=== PATIENT | male | born 1990 | race Caucasian/White ===

== ENCOUNTER 2016-10-05 00:35 | Emergency (ER) | payer BC ==
--- NOTE | 2016-10-05 00:48 | EDM.PDOC ---
ED HPI GENERAL MEDICAL PROBLEM - General Stated Complaint: CHEST PAIN Time Seen by Provider: 10/05/16 00:46 - History of Present Illness INITIAL COMMENTS - FREE TEXT/NARRATIVE: HISTORY AND PHYSICAL: History of present illness: Patient 25-year-old male history of anxiety and asthma presents with concern of left-sided chest pain is without associated palpitations nausea vomiting diaphoresis he denies other concerns he said he had similar episode prior and had a workup at that time that was negative and was told is likely anxiety. Review of systems: As per history of present illness and below otherwise all systems reviewed and negative. Past medical history: As per history of present illness and as reviewed below otherwise noncontributory. Surgical history: As per history of present illness and as reviewed below otherwise noncontributory. Social history: No reported history of drug or alcohol abuse. Family history: As per history of present illness and as reviewed below otherwise noncontributory. Physical exam: HEENT: Atraumatic, normocephalic, pupils reactive, negative for conjunctival pallor or scleral icterus, mucous membranes moist, throat clear, neck supple, nontender, trachea midline. Lungs: Clear to auscultation, breath sounds equal bilaterally, chest nontender. Heart: S1S2, regular, negative for clicks, rubs, or JVD. Abdomen: Soft, nondistended, nontender. Negative for masses or hepatosplenomegaly. Negative for costovertebral tenderness. Pelvis: Stable nontender. Genitourinary: Deferred. Rectal: Deferred. Extremities: Atraumatic, negative for cords or calf pain. Neurovascular unremarkable. Neuro: Awake, alert, oriented. Cranial nerves II through XII unremarkable. Cerebellum unremarkable. Motor and sensory unremarkable throughout. Exam nonfocal. Diagnostics: CBC CMP troponin chest x-ray EKG Therapeutics: IV O2 monitor Impression: #1 atypical chest pain #2 anxiety Definitive disposition and diagnosis as appropriate pending reevaluation and review of above. - Related Data Allergies Allergy/AdvReac Type Severity Reaction Status Date / Time aspirin Allergy Shortness Uncoded 04/11/16 16:00 of Breath Home Meds: Home Meds Albuterol Inhaler 1 puff INH ASDIRECTED 02/06/16 [History] Budesonide/Formoterol Fumarate [Symbicort 160-4.5 Mcg Inhaler] 1 puff INH BID [History] Past Medical History HEENT History: Reports: Other (See Below) Other HEENT History: Nasal polyps Cardiovascular History: Reports: Angina, Other (See Below) Other Cardiovascular History: palpitations Respiratory History: Reports: Asthma Gastrointestinal History: Reports: None Genitourinary History: Reports: None Musculoskeletal History: Reports: None Neurological History: Reports: None Psychiatric History: Reports: None Endocrine/Metabolic History: Reports: None Hematologic History: Reports: None Immunologic History: Reports: None Oncologic (Cancer) History: Reports: None Dermatologic History: Reports: None - Infectious Disease History Infectious Disease History: Reports: Chicken Pox - Past Surgical History HEENT Surgical History: Reports: Naso-Sinus Surgery Musculoskeletal Surgical History: Reports: Other (See Below) Social & Family History - Family History Family Medical History: Noncontributory - Tobacco Use Smoking Status *Q: Never Smoker Years of Tobacco use: 8 Packs/Tins Daily: 0.1 Used Tobacco, but Quit: Yes Month Tobacco Last Used: 1 yr ago Second Hand Smoke Exposure: No - Caffeine Use Caffeine Use: Reports: None - Alcohol Use Days Per Week of Alcohol Use: 2 Number of Drinks Per Day: 1 Total Drinks Per Week: 2 - Recreational Drug Use Recreational Drug Use: No Drug Use in Last 12 Months: Yes Recreational Drug Type: Reports: Marijuana/Hashish Recreational Drug Last Use: 4 months ago ED ROS GENERAL - Review of Systems Review Of Systems: ROS reveals no pertinent complaints other than HPI. ED EXAM, GENERAL - Physical Exam Exam: See Below (See dictation) Departure - Departure Time of Disposition: 00:47 Disposition: Home, Self-Care 01 Condition: Good Clinical Impression: Atypical chest pain, Anxiety - Discharge Information Additional Instructions: The following information is given to patients seen in the emergency department who are being discharged to home. This information is to outline your options for follow-up care. We provide all patients seen in our emergency department with a follow-up referral. The need for follow-up, as well as the timing and circumstances, are variable depending upon the specifics of your emergency department visit. If you don't have a primary care physician on staff, we will provide you with a referral. We always advise you to contact your personal physician following an emergency department visit to inform them of the circumstance of the visit and for follow-up with them and/or the need for any referrals to a consulting specialist. The emergency department will also refer you to a specialist when appropriate. This referral assures that you have the opportunity for followup care with a specialist. All of these measure are taken in an effort to provide you with optimal care, which includes your followup. Under all circumstances we always encourage you to contact your private physician who remains a resource for coordinating your care. When calling for followup care, please make the office aware that this follow-up is from your recent emergency room visit. If for any reason you are refused follow-up, please contact the [facility] emergency department at and asked to speak to the emergency department charge nurse. [facility] [address] [place] [phone] Follow primary medical doctor and/or clinic above in 24-48 hours return as needed as discussed
[2016-10-05 01:23] LABS: CHLORIDE,CL 103 mmol/L (98-110); SODIUM,NA 137 mmol/L (136-146)
[2016-10-05 02:05] VITALS: BP 117/66
--- NOTE | 2016-10-05 15:02 | CR ---
EXAM DATE: 10/05/16 PATIENT'S AGE: 25 Patient: JUDITH ERNANDEZ Facility: [place], [place] Site . Site : 1990 Study: XRay Chest [id number]/17/2017 1:34:18 AM Ordering Physician: Geovanny Garcia Final Report: INDICATION: chest pain TECHNIQUE: Chest 1 view. COMPARISON: 02/29/16 FINDINGS: Cardiovascular and mediastinum: Heart size and vasculature are normal in caliber and appearance. Mediastinum is within normal limits. Lungs and pleural space: Lungs are clear. No sign of infiltrate or mass. No sign of pleural effusion. No pneumothorax. Bones and soft tissues: No significant findings. IMPRESSION: Unremarkable chest. Dictated by: Toni Mayorga MD @ 10/05/2016 01:40:26 (Electronic Signature) Report Signed by Proxy. [facility]
== END 2016-10-05 02:04 | disposition home or self-care (01) ==
LOC: MW.ED 00:35
DX: R41.9 Unspecified symptoms and signs involving cognitive functions and awareness (principal); J45.909 Unspecified asthma, uncomplicated; Z88.8 Allergy status to other drugs, medicaments and biological substances; Z98.890 Other specified postprocedural states
CPT/HCPCS: 71010; 71010-26; 80053; 84484; 85027; 85610; 93005; 99284; 99285-25

== ENCOUNTER 2017-02-22 19:35 | Emergency (ER) | payer SELFPAY | END 2017-02-22 19:47 | disposition left against medical advice (07) | LOC: MW.ED 19:35 | DX: Z53.21 Procedure and treatment not carried out due to patient leaving prior to being seen by health care provider (principal) | CPT/HCPCS: 93005 ==

== ENCOUNTER 2017-03-01 23:47 | Emergency (ER) | payer SELFPAY ==
[2017-03-02] MEDS ORDERED: Sodium Chloride 0.9% 2.5 ML Syringe FLUSH PRN (00:27)
[2017-03-02] MEDS ORDERED: Sodium Chloride 0.9% 10 ML Syringe FLUSH PRN (00:27)
--- NOTE | 2017-03-02 00:32 | EDM.PDOC ---
ED HPI GENERAL MEDICAL PROBLEM - General Chief Complaint: Chest Pain Stated Complaint: PT HAS CHEST PAINS Time Seen by Provider: 03/02/17 00:18 - History of Present Illness INITIAL COMMENTS - FREE TEXT/NARRATIVE: HISTORY AND PHYSICAL: History of present illness: The patient is a 26-year-old male who presents with complaints of episodic chest tightness just to the left of his sternum which she has been evaluated in the past for and a new exacerbation of sharp chest pain that lasted for 1 minute and woke him from sleep. According to the computer he has been here multiple times in the past for palpitations and chest pain and had a stress test 2 years ago which was negative. He is also seeing her patient safety coordinator in the past Dr. Fu. His cholesterol and lipids checked at that time and they were also within normal limits. He says he has not followed with a patient safety coordinator or a provider in the clinic since that time but did present to her emergency department last week on February 22 with a similar episode to today. Last week's episode was when he was at work he started having the chest tightness and he felt like he might pass out but he did not pass out and he came here for evaluation. His EKG performed last week and the one done today were identical. On today's events he said he had a normal day throughout the day with normal activity and no chest discomfort no upper respiratory symptoms shortness of breath abdominal pain vomiting or diarrhea. He was going to bed and dozing off when he awoke with this sharp sensation just the left of his sternum without radiation. He felt somewhat anxious with it and then it subsided after less than 1 minute. He did not take any medications prior to coming here. He currently says that the sharp pain is gone and he does has the dull pressure and tightness that he says is not new or different. He has no abdominal complaints no leg pain or swelling and no neurosensory changes in his extremities. The patient says he has asthma and he is unable to take aspirin or nonsteroidals because it flares his asthma. Patient is very active on a daily basis and has not gotten this type of chest pain with his activities. He does not know his family history. The patient says that he has episodes of this chest pressure and tightness quite frequently in the past and he would not be here considering that he is more concerned about this brief episode of sharp pain which has since resolved since arriving here Review of systems: As per history of present illness and below otherwise all systems reviewed and negative. Past medical history: As per history of present illness and as reviewed below otherwise noncontributory. Surgical history: As per history of present illness and as reviewed below otherwise noncontributory. Social history: No reported history of drug or alcohol abuse. Family history: As per history of present illness and as reviewed below otherwise noncontributory. Physical exam: Gen.: Well-developed well-nourished man who is nontoxic and speaking clearly and easily in the ED. Vital signs were noted by me. HEENT: Atraumatic, normocephalic, pupils reactive, negative for conjunctival pallor or scleral icterus, mucous membranes moist, throat clear, neck supple, nontender, trachea midline. Lungs: Clear to auscultation, breath sounds equal bilaterally, chest nontender. Heart: S1S2, regular, rate and rhythm no overt murmurs. Abdomen: Soft, nondistended, nontender. NABS Pelvis: Stable nontender. Genitourinary: Deferred. Rectal: Deferred. Extremities: Atraumatic, negative for cords or calf pain. Neurovascular unremarkable. No pedal edema or leg asymmetry Neuro: Awake, alert, oriented. Cranial nerves II through XII unremarkable. Cerebellum unremarkable. Motor and sensory unremarkable throughout. Exam nonfocal. Diagnostics: EKG chest x-ray CBC CMP troponin Therapeutics: IV O2 monitor Patient refuses aspirin as he says the sclerae his asthma. I discussed with the patient and all testing results are negative but I still offered him observation admission if he feels uncomfortable with this episode of chest pain. It appears that he was has a chronic level of chest discomfort and this was a brief episode of sharp pain. He states that he would like to defer admission and go home. I've advised him that he must call the clinic and get follow-up with either our patient safety coordinator or with a family doctor or both. He states understanding. I've advised him on reasons to return to the ED. Impression: Episode of sharp chest pain resolved prior to admission, history of episodic chest pain stable Definitive disposition and diagnosis as appropriate pending reevaluation and review of above. Middle Chest Pain Score (Numeric/FACES): 7 - Related Data Allergies Allergy/AdvReac Type Severity Reaction Status Date / Time aspirin Allergy Shortness Uncoded 01/12/18 00:00 of Breath Home Meds: Home Meds Albuterol Inhaler 1 puff INH ASDIRECTED 02/06/16 [History] Budesonide/Formoterol Fumarate [Symbicort 160-4.5 Mcg Inhaler] 1 puff INH BID [History] Past Medical History HEENT History: Reports: Other (See Below) Other HEENT History: Nasal polyps Cardiovascular History: Reports: Angina, Other (See Below) Other Cardiovascular History: palpitations Respiratory History: Reports: Asthma Gastrointestinal History: Reports: None Genitourinary History: Reports: None Musculoskeletal History: Reports: None Neurological History: Reports: None Psychiatric History: Reports: Anxiety Endocrine/Metabolic History: Reports: None Hematologic History: Reports: None Immunologic History: Reports: None Oncologic (Cancer) History: Reports: None Dermatologic History: Reports: None - Infectious Disease History Infectious Disease History: Reports: Chicken Pox - Past Surgical History Head Surgeries/Procedures: Reports: None HEENT Surgical History: Reports: Naso-Sinus Surgery Musculoskeletal Surgical History: Reports: Other (See Below) Social & Family History - Family History Family Medical History: Noncontributory - Tobacco Use Smoking Status *Q: Former Smoker Years of Tobacco use: 8 Packs/Tins Daily: 0.1 Used Tobacco, but Quit: Yes Month Tobacco Last Used: 08/2016 Second Hand Smoke Exposure: No - Caffeine Use Caffeine Use: Reports: Coffee - Alcohol Use Days Per Week of Alcohol Use: 2 Number of Drinks Per Day: 1 Total Drinks Per Week: 2 - Recreational Drug Use Recreational Drug Use: No Drug Use in Last 12 Months: Yes Recreational Drug Type: Reports: Marijuana/Hashish Recreational Drug Last Use: 4 months ago ED ROS GENERAL - Review of Systems Review Of Systems: ROS reveals no pertinent complaints other than HPI. ED EXAM, GENERAL - Physical Exam Exam: See Below (See dictation) Course - Vital Signs Last Recorded V/S: Last Vital Signs Temp 36.8 C 03/01/17 23:56 Pulse 84 03/01/17 23:56 Resp 18 03/01/17 23:56 BP 137/77 03/01/17 23:56 Pulse Ox 96 03/01/17 23:56 - Orders/Labs/Meds Orders: Active Orders 24 hr Category Date Time Status Cardiac Monitoring [RC] . DIRECTED Care 03/02/17 00:27 Active Oxygen Therapy, ED [RC] ASDIRECTED Care 03/02/17 00:27 Active Pulse Oximetry [RC] ASDIRECTED Care 03/02/17 00:27 Active Chest 1V Frontal [CR] Stat Exams 03/02/17 00:14 Taken Sodium Chloride 0.9% [Saline Flush] Med 03/02/17 00:27 Active 10 ml FLUSH ASDIRECTED PRN Sodium Chloride 0.9% [Saline Flush] Med 03/02/17 00:27 Active 2.5 ml FLUSH ASDIRECTED PRN Saline Lock Insert [OM.PC] Stat Oth 03/02/17 00:27 Ordered Medication Orders Sodium Chloride (Saline Flush) 10 ml FLUSH ASDIRECTED PRN PRN Reason: Keep Vein Open Sodium Chloride (Saline Flush) 2.5 ml FLUSH ASDIRECTED PRN PRN Reason: Keep Vein Open Labs: Laboratory Tests 03/01/17 03/01/17 Range/Units 23:52 23:52 WBC 9.88 (4.0-11.0) K/uL RBC 4.75 (4.50-5.90) M/uL Hgb 14.0 (13.0-17.0) g/dL Hct 41.3 (38.0-50.0) % MCV 86.9 (80.0-98.0) fL MCH 29.5 (27.0-32.0) pg MCHC 33.9 (31.0-37.0) g/dL RDW Std Deviation 45.7 (28.0-62.0) fl RDW Coeff of Aisha 15 (11.0-15.0) % Plt Count 329 (150-400) K/uL MPV 10.30 (7.40-12.00) fL Neut % (Auto) 48.3 (48.0-80.0) % Lymph % (Auto) 30.7 (16.0-40.0) % Sutter % (Auto) 8.3 (0.0-15.0) % Eos % (Auto) 12.3 H (0.0-7.0) % Baso % (Auto) 0.4 (0.0-1.5) % Neut # (Auto) 4.8 (1.4-5.7) K/uL Lymph # (Auto) 3.0 H (0.6-2.4) K/uL Sutter # (Auto) 0.8 (0.0-0.8) K/uL Eos # (Auto) 1.2 H (0.0-0.7) K/uL Baso # (Auto) 0.0 (0.0-0.1) K/uL Sodium 139 (136-146) mmol/L Potassium 3.8 (3.5-5.1) mmol/L Chloride 104 (98-110) mmol/L Carbon Dioxide 27 (21-31) mmol/L BUN 21 (6.0-23.0) mg/dL Creatinine 1.2 (0.6-1.5) mg/dL Est Cr Clr Drug Dosing 101.49 mL/min Estimated GFR (MDRD) > 60.0 ml/min Glucose 98 (60-110) mg/dL Calcium 9.7 (8.8-10.8) mg/dL Total Bilirubin 0.2 (0.1-1.5) mg/dL AST 23 (5-40) IU/L ALT 24 (8-54) IU/L Alkaline Phosphatase 108 (40-150) Troponin I < 0.10 (0.0-0.29) NG/ML Total Protein 7.5 (6.0-8.0) g/dL Albumin 4.3 (3.5-5.0) g/dL Globulin 3.2 (2.0-3.5) g/dL Albumin/Globulin Ratio 1.3 (1.3-2.8) Meds: Medications Generic Name Dose Route Start Last Admin Trade Name Jonasq PRN Reason Stop Dose Admin Sodium Chloride 10 ml 03/02/17 00:27 Saline Flush FLUSH ASDIRECTED PRN Keep Vein Open Sodium Chloride 2.5 ml 03/02/17 00:27 Saline Flush FLUSH ASDIRECTED PRN Keep Vein Open Departure - Departure Time of Disposition: 01:32 Disposition: Home, Self-Care 01 Condition: Good Clinical Impression: Chest pain Qualifiers: Chest pain type: other chest pain Qualified Code(s): R07.89 - Other chest pain ; R07.8 - Other chest pain - Discharge Information Referrals: PCP,None [Primary Care Provider] - Forms: ED Department Discharge Additional Instructions: The following information is given to patients seen in the emergency department who are being discharged to home. This information is to outline your options for follow-up care. We provide all patients seen in our emergency department with a follow-up referral. The need for follow-up, as well as the timing and circumstances, are variable depending upon the specifics of your emergency department visit. If you don't have a primary care physician on staff, we will provide you with a referral. We always advise you to contact your personal physician following an emergency department visit to inform them of the circumstance of the visit and for follow-up with them and/or the need for any referrals to a consulting specialist. The emergency department will also refer you to a specialist when appropriate. This referral assures that you have the opportunity for followup care with a specialist. All of these measure are taken in an effort to provide you with optimal care, which includes your followup. Under all circumstances we always encourage you to contact your private physician who remains a resource for coordinating your care. When calling for followup care, please make the office aware that this follow-up is from your recent emergency room visit. If for any reason you are refused follow-up, please contact the [facility] emergency department at and ask to speak to the emergency department charge nurse. [facility]- [place] [address] Rest push hydration. Please call the clinic tomorrow morning at 8 AM to get an expedited ER follow-up appointment in our clinic as we discussed. Return to ER as needed and as discussed. - My Orders Last 24 Hours: My Active Orders 03/02/17 00:14 Chest 1V Frontal [CR] Stat 03/02/17 00:27 Cardiac Monitoring [RC] . DIRECTED Oxygen Therapy, ED [RC] ASDIRECTED Pulse Oximetry [RC] ASDIRECTED Sodium Chloride 0.9% [Saline Flush] 10 ml FLUSH ASDIRECTED PRN Sodium Chloride 0.9% [Saline Flush] 2.5 ml FLUSH ASDIRECTED PRN Saline Lock Insert [OM.PC] Stat - Assessment/Plan Last 24 Hours: My Active Orders 03/02/17 00:14 Chest 1V Frontal [CR] Stat 03/02/17 00:27 Cardiac Monitoring [RC] . DIRECTED Oxygen Therapy, ED [RC] ASDIRECTED Pulse Oximetry [RC] ASDIRECTED Sodium Chloride 0.9% [Saline Flush] 10 ml FLUSH ASDIRECTED PRN Sodium Chloride 0.9% [Saline Flush] 2.5 ml FLUSH ASDIRECTED PRN Saline Lock Insert [OM.PC] Stat
[2017-03-02 00:43] LABS: CHLORIDE,CL 104 mmol/L (98-110); SODIUM,NA 139 mmol/L (136-146)
[2017-03-02 03:39] VITALS: BP 131/60
--- NOTE | 2017-03-02 16:25 | CR ---
EXAM DATE: 03/01/17 PATIENT'S AGE: 26 Patient: JUDITH ERNANDEZ Facility: [place], [place] Site . Site : 1990 Study: XRay Chest [id number]/12/2018 12:23:35 AM Ordering Physician: Doctor Hdz Final Report: INDICATION: chest pain CHEST, ONE VIEW An AP radiograph of the chest was performed. Comparison: 10/05/2016. The lungs appear clear and no pleural effusions are identified. The cardiomediastinal silhouette and pulmonary vasculature appear normal, as do the visualized bones. IMPRESSION: No acute intrathoracic abnormality identified. NAOMY MEYERS MD [employer] Dictated by: Issac Meyers MD @ 03/02/2017 00:26:47 (Electronic Signature) Report Signed by Proxy. [facility]
== END 2017-03-02 01:40 | disposition home or self-care (01) ==
LOC: MW.ED 23:47
DX: R07.89 Other chest pain (principal); J45.909 Unspecified asthma, uncomplicated; Z87.891 Personal history of nicotine dependence; Z88.6 Allergy status to analgesic agent
CPT/HCPCS: 71045; 71045-26; 80053; 84484; 85025; 93005; 99284; 99285-25

== ENCOUNTER 2017-04-03 19:13 | Emergency (ER) | payer BC ==
--- NOTE | 2017-04-03 19:50 | EDM.PDOC ---
ED HPI GENERAL MEDICAL PROBLEM - General Chief Complaint: Headache Stated Complaint: LIGHTHEADED/DIZZY Time Seen by Provider: 04/03/17 19:30 Source of Information: Reports: Patient History Limitations: Reports: No Limitations - History of Present Illness INITIAL COMMENTS - FREE TEXT/NARRATIVE: HISTORY AND PHYSICAL: History of present illness: [Patient comes to the emergency room with complaints of lightheadedness that lasted about 1 hour this evening. He saw Dr. Holland today and was prescribed Adderall to take twice a day. He took his first dose at 10 AM and his second dose at 4 PM, just prior to strenuous workout at the gym. After he finished that workout he started to feel very dizzy and lightheaded and developed a headache. He did not fall or have any injury. He pushed fluids and his dizziness gradually improved. His headache and dizziness gradually resolved but he continues to feel a buzzing sensation in his head. He has taken Adderall in the past but not since he was in high school approximately 9 years ago. He denies any other illicit drug use. Has not had any energy, high caffeine or power drinks today. States that he has had trouble keeping a job for the past several years and that ] Review of systems: As per history of present illness and below otherwise all systems reviewed and negative. Past medical history: As per history of present illness and as reviewed below otherwise noncontributory. Surgical history: As per history of present illness and as reviewed below otherwise noncontributory. Social history: No reported history of drug or alcohol abuse. Family history: As per history of present illness and as reviewed below otherwise noncontributory. Physical exam: HEENT: Atraumatic, normocephalic. TM's are pearly melchor and without erythema, mild effusions present bilaterally. Nares are erythematous and boggy. Throat is clear. Lungs: Clear to auscultation, breath sounds equal bilaterally. Heart: S1S2, regular rate and rhythm. Extremities: Atraumatic and muscular. Neurovascular unremarkable. Neuro: Awake, alert, oriented. Motor and sensory unremarkable throughout. Exam nonfocal. Impression: [Dizziness, resolved ADD] Plan: [Encouraged patient that dizziness may be from Adderall and recommend slowing down on the dose and taking 1 tablet in the morning for 4 days and skipping afternoon dose, then if he tolerates the once daily dosing well increase to twice a day. Push fluids. Strict return precautions are recommended. Follow-up with Dr. Holland. Patient is in agreement with today's plan.] Definitive disposition and diagnosis as appropriate pending reevaluation and review of above. head Pain Score (Numeric/FACES): 4 - Related Data Allergies Allergy/AdvReac Type Severity Reaction Status Date / Time aspirin Allergy Shortness Uncoded 04/03/17 19:31 of Breath Home Meds: Home Meds Albuterol Inhaler 1 puff INH ASDIRECTED 02/06/16 [History] Budesonide/Formoterol Fumarate [Symbicort 160-4.5 Mcg Inhaler] 1 puff INH BID [History] Amphetamine/Dextroamphetamine [Adderall] 10 mg PO BID 04/03/17 [History] Past Medical History - Past Health History Medical/Surgical History: Denies Medical/Surgical History HEENT History: Reports: Other (See Below) Other HEENT History: Nasal polyps Cardiovascular History: Reports: Angina, Other (See Below) Other Cardiovascular History: palpitations Respiratory History: Reports: Asthma Gastrointestinal History: Reports: None Genitourinary History: Reports: None Musculoskeletal History: Reports: None Neurological History: Reports: None Psychiatric History: Reports: ADD, Anxiety Endocrine/Metabolic History: Reports: None Hematologic History: Reports: None Immunologic History: Reports: None Oncologic (Cancer) History: Reports: None Dermatologic History: Reports: None - Infectious Disease History Infectious Disease History: Reports: Chicken Pox - Past Surgical History Head Surgeries/Procedures: Reports: None HEENT Surgical History: Reports: Naso-Sinus Surgery Musculoskeletal Surgical History: Reports: Other (See Below) Social & Family History - Family History Family Medical History: Noncontributory - Tobacco Use Smoking Status *Q: Never Smoker Years of Tobacco use: 8 Packs/Tins Daily: 0.1 Used Tobacco, but Quit: Yes Month Tobacco Last Used: 08/2016 Second Hand Smoke Exposure: No - Caffeine Use Caffeine Use: Reports: Coffee - Alcohol Use Days Per Week of Alcohol Use: 2 Number of Drinks Per Day: 1 Total Drinks Per Week: 2 - Recreational Drug Use Recreational Drug Use: No Drug Use in Last 12 Months: Yes Recreational Drug Type: Reports: Marijuana/Hashish Recreational Drug Last Use: 4 months ago ED ROS GENERAL - Review of Systems Review Of Systems: ROS reveals no pertinent complaints other than HPI. - Physical Exam Exam: See Below Course - Vital Signs Last Recorded V/S: Last Vital Signs Temp 98.4 F 04/03/17 19:55 Pulse 100 04/03/17 19:55 Resp 18 04/03/17 19:55 BP 116/69 04/03/17 19:55 Pulse Ox 97 04/03/17 19:55 Departure - Departure Time of Disposition: 19:50 Disposition: Home, Self-Care 01 Condition: Good Clinical Impression: Dizziness - Discharge Information Instructions: Dizziness Referrals: PCP,None [Primary Care Provider] - Forms: ED Department Discharge Additional Instructions: The following information is given to patients seen in the emergency department who are being discharged to home. This information is to outline your options for follow-up care. We provide all patients seen in our emergency department with a follow-up referral. The need for follow-up, as well as the timing and circumstances, are variable depending upon the specifics of your emergency department visit. If you don't have a primary care physician on staff, we will provide you with a referral. We always advise you to contact your personal physician following an emergency department visit to inform them of the circumstance of the visit and for follow-up with them and/or the need for any referrals to a consulting specialist. The emergency department will also refer you to a specialist when appropriate. This referral assures that you have the opportunity for follow-up care with a specialist. All of these measure are taken in an effort to provide you with optimal care, which includes your follow-up. Under all circumstances we always encourage you to contact your private physician who remains a resource for coordinating your care. When calling for follow-up care, please make the office aware that this follow-up is from your recent emergency room visit. If for any reason you are refused follow-up, please contact the [facility] emergency department at and asked to speak to the emergency department charge nurse. [address] [id number] Follow-up with Dr. Holland in the next 48-72 hours. Push fluids. Decrease medication for a couple of days until your body is acclimated as we discussed. Return to ER as discussed.
[2017-04-03 19:56] VITALS: BP 116/69
== END 2017-04-03 20:08 | disposition home or self-care (01) ==
LOC: MW.ED 19:13
DX: R42 Dizziness and giddiness (principal); F98.8 Other specified behavioral and emotional disorders with onset usually occurring in childhood and adolescence; J45.909 Unspecified asthma, uncomplicated; Z87.891 Personal history of nicotine dependence; Z88.6 Allergy status to analgesic agent
CPT/HCPCS: 99283

== ENCOUNTER 2017-04-12 17:58 | Emergency (ER) | payer BC ==
[2017-04-12] MEDS ORDERED: Sodium Chloride 0.9% 10 ML Syringe FLUSH PRN (18:10)
[2017-04-12] MEDS ORDERED: Sodium Chloride 0.9% 2.5 ML Syringe FLUSH PRN (18:10)
--- NOTE | 2017-04-12 18:16 | EDM.PDOC ---
ED HPI GENERAL MEDICAL PROBLEM - General Chief Complaint: Chest Pain Stated Complaint: CHEST PAIN Time Seen by Provider: 04/12/17 18:01 - History of Present Illness INITIAL COMMENTS - FREE TEXT/NARRATIVE: HISTORY AND PHYSICAL: History of present illness: Patient is 26-year-old white male who's had approximately 10-15 ER visits over the last 3-4 years related to anxiety and other nonspecific complaints including chest pain terms of breath dizziness palpitations he's had cardiac stress test echocardiogram and other workup that is always been negative he presents today with chest pains vaguely described asassociated symptoms he denies trauma fever chills nausea vomiting or other complaints Review of systems: As per history of present illness and below otherwise all systems reviewed and negative. Past medical history: As per history of present illness and as reviewed below otherwise noncontributory. Surgical history: As per history of present illness and as reviewed below otherwise noncontributory. Social history: No reported history of drug or alcohol abuse. Family history: As per history of present illness and as reviewed below otherwise noncontributory. Physical exam: HEENT: Atraumatic, normocephalic, pupils reactive, negative for conjunctival pallor or scleral icterus, mucous membranes moist, throat clear, neck supple, nontender, trachea midline. Lungs: Clear to auscultation, breath sounds equal bilaterally, chest nontender. Heart: S1S2, regular, negative for clicks, rubs, or JVD. Abdomen: Soft, nondistended, nontender. Negative for masses or hepatosplenomegaly. Negative for costovertebral tenderness. Pelvis: Stable nontender. Genitourinary: Deferred. Rectal: Deferred. Extremities: Atraumatic, negative for cords or calf pain. Neurovascular unremarkable. Neuro: Awake, alert, oriented. Cranial nerves II through XII unremarkable. Cerebellum unremarkable. Motor and sensory unremarkable throughout. Exam nonfocal. Diagnostics: Chest x-ray EKG CBC CMP troponin Therapeutics: None Impression: 1 atypical chest pain #2 anxiety Definitive disposition and diagnosis as appropriate pending reevaluation and review of above. - Related Data Allergies Allergy/AdvReac Type Severity Reaction Status Date / Time aspirin Allergy Shortness Uncoded 04/03/17 19:31 of Breath Home Meds: Home Meds Albuterol Inhaler 1 puff INH ASDIRECTED 02/06/16 [History] Budesonide/Formoterol Fumarate [Symbicort 160-4.5 Mcg Inhaler] 1 puff INH BID [History] Amphetamine/Dextroamphetamine [Adderall] 10 mg PO BID 04/03/17 [History] Past Medical History - Past Health History Medical/Surgical History: Denies Medical/Surgical History HEENT History: Reports: Other (See Below) Other HEENT History: Nasal polyps Cardiovascular History: Reports: Angina, Other (See Below) Other Cardiovascular History: palpitations Respiratory History: Reports: Asthma Gastrointestinal History: Reports: None Genitourinary History: Reports: None Musculoskeletal History: Reports: None Neurological History: Reports: None Psychiatric History: Reports: ADD, Anxiety Endocrine/Metabolic History: Reports: None Hematologic History: Reports: None Immunologic History: Reports: None Oncologic (Cancer) History: Reports: None Dermatologic History: Reports: None - Infectious Disease History Infectious Disease History: Reports: Chicken Pox - Past Surgical History Head Surgeries/Procedures: Reports: None HEENT Surgical History: Reports: Naso-Sinus Surgery Musculoskeletal Surgical History: Reports: Other (See Below) Social & Family History - Family History Family Medical History: Noncontributory - Tobacco Use Smoking Status *Q: Never Smoker Years of Tobacco use: 8 Packs/Tins Daily: 0.1 Used Tobacco, but Quit: Yes Month Tobacco Last Used: 08/2016 Second Hand Smoke Exposure: No - Caffeine Use Caffeine Use: Reports: Coffee - Alcohol Use Days Per Week of Alcohol Use: 2 Number of Drinks Per Day: 1 Total Drinks Per Week: 2 - Recreational Drug Use Recreational Drug Use: No Drug Use in Last 12 Months: Yes Recreational Drug Type: Reports: Marijuana/Hashish Recreational Drug Last Use: 4 months ago ED ROS GENERAL - Review of Systems Review Of Systems: ROS reveals no pertinent complaints other than HPI. ED EXAM, GENERAL - Physical Exam Exam: See Below (See dictation) Course - Orders/Labs/Meds Orders: Active Orders 24 hr Category Date Time Status Cardiac Monitoring [RC] . DIRECTED Care 04/12/17 18:10 Active EKG Documentation Completion [RC] STAT Care 04/12/17 18:02 Active Pulse Oximetry [RC] ASDIRECTED Care 04/12/17 18:10 Active Chest 1V Frontal [CR] Stat Exams 04/12/17 18:02 Ordered CBC WITH AUTO DIFF [HEME] Stat Lab 04/12/17 18:10 Ordered COMPREHENSIVE METABOLIC PN,CMP [CHEM] Stat Lab 04/12/17 18:10 Ordered INR,PT,PROTHROMBIN TIME [COAG] Stat Lab 04/12/17 18:10 Ordered TROPONIN I [CHEM] Stat Lab 04/12/17 18:10 Ordered Sodium Chloride 0.9% [Saline Flush] Med 04/12/17 18:10 Active 10 ml FLUSH ASDIRECTED PRN Sodium Chloride 0.9% [Saline Flush] Med 04/12/17 18:10 Active 2.5 ml FLUSH ASDIRECTED PRN Saline Lock Insert [OM.PC] Stat Oth 04/12/17 18:10 Ordered Medication Orders Sodium Chloride (Saline Flush) 10 ml FLUSH ASDIRECTED PRN PRN Reason: Keep Vein Open Sodium Chloride (Saline Flush) 2.5 ml FLUSH ASDIRECTED PRN PRN Reason: Keep Vein Open Meds: Medications Generic Name Dose Route Start Last Admin Trade Name Freq PRN Reason Stop Dose Admin Sodium Chloride 10 ml 04/12/17 18:10 Saline Flush FLUSH ASDIRECTED PRN Keep Vein Open Sodium Chloride 2.5 ml 04/12/17 18:10 Saline Flush FLUSH ASDIRECTED PRN Keep Vein Open Departure - Departure Time of Disposition: 18:15 Disposition: Home, Self-Care 01 Condition: Good Clinical Impression: Anxiety, Atypical chest pain - Discharge Information Referrals: PCP,None [Primary Care Provider] - Additional Instructions: The following information is given to patients seen in the emergency department who are being discharged to home. This information is to outline your options for follow-up care. We provide all patients seen in our emergency department with a follow-up referral. The need for follow-up, as well as the timing and circumstances, are variable depending upon the specifics of your emergency department visit. If you don't have a primary care physician on staff, we will provide you with a referral. We always advise you to contact your personal physician following an emergency department visit to inform them of the circumstance of the visit and for follow-up with them and/or the need for any referrals to a consulting specialist. The emergency department will also refer you to a specialist when appropriate. This referral assures that you have the opportunity for followup care with a specialist. All of these measure are taken in an effort to provide you with optimal care, which includes your followup. Under all circumstances we always encourage you to contact your private physician who remains a resource for coordinating your care. When calling for followup care, please make the office aware that this follow-up is from your recent emergency room visit. If for any reason you are refused follow-up, please contact the [facility] emergency department at and asked to speak to the emergency department charge nurse. [facility] [address] [place] [id number] Follow-up primary medical doctor and/or clinic above called to schedule routine appointment return as needed as discussed - My Orders Last 24 Hours: My Active Orders 04/12/17 18:02 EKG Documentation Completion [RC] STAT Chest 1V Frontal [CR] Stat 04/12/17 18:10 Cardiac Monitoring [RC] . DIRECTED Pulse Oximetry [RC] ASDIRECTED CBC WITH AUTO DIFF [HEME] Stat COMPREHENSIVE METABOLIC PN,CMP [CHEM] Stat INR,PT,PROTHROMBIN TIME [COAG] Stat TROPONIN I [CHEM] Stat Sodium Chloride 0.9% [Saline Flush] 10 ml FLUSH ASDIRECTED PRN Sodium Chloride 0.9% [Saline Flush] 2.5 ml FLUSH ASDIRECTED PRN Saline Lock Insert [OM.PC] Stat - Assessment/Plan Last 24 Hours: My Active Orders 04/12/17 18:02 EKG Documentation Completion [RC] STAT Chest 1V Frontal [CR] Stat 04/12/17 18:10 Cardiac Monitoring [RC] . DIRECTED Pulse Oximetry [RC] ASDIRECTED CBC WITH AUTO DIFF [HEME] Stat COMPREHENSIVE METABOLIC PN,CMP [CHEM] Stat INR,PT,PROTHROMBIN TIME [COAG] Stat TROPONIN I [CHEM] Stat Sodium Chloride 0.9% [Saline Flush] 10 ml FLUSH ASDIRECTED PRN Sodium Chloride 0.9% [Saline Flush] 2.5 ml FLUSH ASDIRECTED PRN Saline Lock Insert [OM.PC] Stat
[2017-04-12 19:26] VITALS: BP 131/62
--- NOTE | 2017-04-13 14:50 | CR ---
EXAM DATE: 04/12/17 PATIENT'S AGE: 26 Patient: JUDITH ERNANDEZ Facility: [place], [place] Site . Site : 1990 Study: XRay Chest [id number]/22/2018 6:24:12 PM Ordering Physician: Doctor Hdz Final Report: INDICATION: chest pain TECHNIQUE: Chest 1 view COMPARISON: March 02, 2017 FINDINGS: Cardiovascular and mediastinum: Heart size and vasculature are normal in caliber and appearance. Mediastinum is within normal limits. Lungs and pleural space: No focal consolidation. No sign of pleural effusion. No pneumothorax. Bones and soft tissues: No significant findings. IMPRESSION: No acute cardiopulmonary disease Dictated by Lino Prabhakar MD @ 04/12/2017 6:35:54 PM Dictated by: Lino Prabhakar MD @ 04/12/2017 18:36:01 (Electronic Signature) Report Signed by Proxy. SUJATA
== END 2017-04-12 19:26 | disposition home or self-care (01) ==
LOC: MW.ED 17:58
DX: R07.89 Other chest pain (principal); F41.9 Anxiety disorder, unspecified; Z88.6 Allergy status to analgesic agent; Z87.891 Personal history of nicotine dependence
CPT/HCPCS: 71045; 71045-26; 99283; 99285-25

== ENCOUNTER 2017-04-21 19:29 | Emergency (ER) | payer BC | END 2017-04-21 20:10 | disposition left against medical advice (07) | LOC: MW.ED 19:29 | DX: Z53.21 Procedure and treatment not carried out due to patient leaving prior to being seen by health care provider (principal) ==

== ENCOUNTER 2017-05-01 18:40 | Emergency (ER) | payer BC ==
[2017-05-01 19:47] LABS: CHLORIDE,CL 101 mmol/L (98-107); SODIUM,NA 138 mmol/L (136-148)
--- NOTE | 2017-05-01 20:07 | EDM.PDOC ---
ED HPI GENERAL MEDICAL PROBLEM - General Chief Complaint: Chest Pain Stated Complaint: NUMBNESS ARMS/TIGHTNESS CHEST Time Seen by Provider: 05/01/17 18:41 Source of Information: Reports: Patient History Limitations: Reports: No Limitations - History of Present Illness INITIAL COMMENTS - FREE TEXT/NARRATIVE: Presents to the ER very dramatic in the waiting room stating that he can't feel his arms and legs but walking around and getting into the wheelchair. By the time he got into the exam room he was asymptomatic. This patient has been to the emergency room over 15 times in the last couple of years for chest pain and anxiety related issues and in practice been here 4 times this year already. He states that he has been ill with cough for the last couple of days but was working out at the local fitness center when he became short of breath and hyperventilated. After that he had some tingling and numbness in his hands and thus presented to the ER. No chest pain, shortness of breath, fever, nausea or other symptoms. - Related Data Allergies Allergy/AdvReac Type Severity Reaction Status Date / Time aspirin Allergy Shortness Uncoded 05/01/17 18:43 of Breath Home Meds: Home Meds Albuterol Inhaler 1 puff INH ASDIRECTED 02/06/16 [History] Budesonide/Formoterol Fumarate [Symbicort 160-4.5 Mcg Inhaler] 1 puff INH BID [History] Amphetamine/Dextroamphetamine [Adderall] 10 mg PO BID 04/03/17 [History] Amoxicillin/Potassium Clav [Amox-Clav 875-125 mg Tablet] 1 tab PO DAILY [History] Past Medical History - Past Health History Medical/Surgical History: Denies Medical/Surgical History HEENT History: Reports: Other (See Below) Other HEENT History: Nasal polyps Cardiovascular History: Reports: Angina, Other (See Below) Other Cardiovascular History: palpitations Respiratory History: Reports: Asthma Gastrointestinal History: Reports: None Genitourinary History: Reports: None Musculoskeletal History: Reports: None Neurological History: Reports: None Psychiatric History: Reports: ADD, Anxiety Endocrine/Metabolic History: Reports: None Hematologic History: Reports: None Immunologic History: Reports: None Oncologic (Cancer) History: Reports: None Dermatologic History: Reports: None - Infectious Disease History Infectious Disease History: Reports: Chicken Pox, Other (See Below) Other Infectious Disease History: chldhood - Past Surgical History Head Surgeries/Procedures: Reports: None HEENT Surgical History: Reports: Naso-Sinus Surgery Musculoskeletal Surgical History: Reports: Other (See Below) Social & Family History - Family History Family Medical History: Noncontributory - Tobacco Use Smoking Status *Q: Never Smoker Years of Tobacco use: 8 Packs/Tins Daily: 0.1 Used Tobacco, but Quit: Yes Month/Year Tobacco Last Used: 08/2016 Second Hand Smoke Exposure: No - Caffeine Use Caffeine Use: Reports: None - Alcohol Use Days Per Week of Alcohol Use: 2 Number of Drinks Per Day: 1 Total Drinks Per Week: 2 - Recreational Drug Use Recreational Drug Use: No Drug Use in Last 12 Months: Yes Recreational Drug Type: Reports: Marijuana/Hashish Recreational Drug Last Use: 4 months ago ED ROS GENERAL - Review of Systems Review Of Systems: ROS reveals no pertinent complaints other than HPI. ED EXAM, GENERAL - Physical Exam Exam: See Below Exam Limited By: No Limitations General Appearance: Alert, No Apparent Distress Ears: Normal External Exam Nose: Normal Inspection Throat/Mouth: Normal Inspection Head: Atraumatic, Normocephalic Neck: Normal Inspection Respiratory/Chest: No Respiratory Distress, Crackles (bibasilar), Pleural Rub ( left base) Cardiovascular: Normal Peripheral Pulses, Regular Rate, Rhythm, No Murmur GI/Abdominal: Soft Extremities: Normal Inspection Neurological: Alert, Oriented, Normal Cognition, No Motor/Sensory Deficits Psychiatric: Normal Affect, Normal Mood Skin Exam: Warm, Dry, Intact, Normal Color, No Rash Lymphatic: No Adenopathy Course - Vital Signs Last Recorded V/S: Last Vital Signs Temp 37.1 C 05/01/17 18:44 Pulse 109 H 05/01/17 18:44 Resp 20 05/01/17 18:44 BP 133/73 05/01/17 18:44 Pulse Ox 97 05/01/17 18:44 - Orders/Labs/Meds Orders: Active Orders 24 hr Category Date Time Status EKG Documentation Completion [RC] STAT Care 05/01/17 18:51 Active Chest 2V [CR] Stat Exams 05/01/17 19:11 Ordered Labs: Laboratory Tests 05/01/17 05/01/17 05/01/17 Range/Units 19:15 19:15 19:15 WBC 6.27 (4.0-11.0) K/uL RBC 4.94 (4.50-5.90) M/uL Hgb 15.5 (13.0-17.0) g/dL Hct 44.5 (38.0-50.0) % MCV 90.1 (80.0-98.0) fL MCH 31.4 (27.0-32.0) pg MCHC 34.8 (31.0-37.0) g/dL RDW Std Deviation 45.7 (28.0-62.0) fl RDW Coeff of Aisha 14 (11.0-15.0) % Plt Count 284 (150-400) K/uL MPV 10.10 (7.40-12.00) fL Add Manual Diff YES Neutrophils % (Manual) 54 (48.0-80.0) % Lymphocytes % (Manual) 29 (16.0-40.0) % Monocytes % (Manual) 5 (0.0-15.0) % Eosinophils % (Manual) 12 H (0.0-7.0) % Nucleated RBC % 0.0 /100WBC Absolute Seg Neuts 3.4 (1.4-5.7) Lymphocytes # (Manual) 1.8 (0.6-2.4) Monocytes # (Manual) 0.3 (0.0-0.8) Eosinophils # (Manual) 0.8 H (0.0-0.7) Nucleated RBCs # 0 K/uL ESR 7 (0-14) mm/hr Sodium 138 (136-148) mmol/L Potassium 3.5 (3.5-5.1) mmol/L Chloride 101 (98-107) mmol/L Carbon Dioxide 21.2 (21.0-32.0) mmol/L BUN 29 H (7.0-18.0) mg/dL Creatinine 1.4 H (0.8-1.3) mg/dL Est Cr Clr Drug Dosing 86.99 mL/min Estimated GFR (MDRD) > 60.0 ml/min Glucose 94 (74-106) mg/dL Calcium 9.1 (8.5-10.1) mg/dL Total Bilirubin 0.2 (0.2-1.0) mg/dL AST 23 (15-37) IU/L ALT 28 (14-63) IU/L Alkaline Phosphatase 87 (46-116) U/L Troponin I < 0.050 (0.000-0.056) ng/mL Total Protein 7.7 (6.4-8.2) g/dL Albumin 3.8 (3.4-5.0) g/dL Globulin 3.9 H (2.0-3.5) g/dL Albumin/Globulin Ratio 1.0 L (1.3-2.8) Departure - Departure Time of Disposition: 20:08 Disposition: Home, Self-Care 01 Clinical Impression: Hyperventilation, Panic attack - Discharge Information Referrals: Andi Holland MD [Primary Care Provider] - Additional Instructions: 1. Please see your primary provider about an action plan related to your anxiety and panic. 2. Avoid heavy exercise until your cough resolves. - My Orders Last 24 Hours: My Active Orders 05/01/17 18:51 EKG Documentation Completion [RC] STAT 05/01/17 19:11 Chest 2V [CR] Stat - Assessment/Plan Last 24 Hours: My Active Orders 05/01/17 18:51 EKG Documentation Completion [RC] STAT 05/01/17 19:11 Chest 2V [CR] Stat
[2017-05-01 20:21] VITALS: BP 114/61
--- NOTE | 2017-05-02 09:43 | CR ---
EXAM DATE: 05/01/17 PATIENT'S AGE: 26 Patient: JUDITH ERNANDEZ Facility: [place], [place] Site . Site : 1990 Study: XRay Chest [id number]/13/2018 7:50:45 PM Ordering Physician: Doctor Hdz Final Report: INDICATION: Basilar crackles, cough TECHNIQUE: Chest 2 views. COMPARISON: 03/23/17 FINDINGS: Cardiovascular and mediastinum: Heart size and vasculature are normal in caliber and appearance. Mediastinum is within normal limits. Lungs and pleural spaces: Lungs are clear. No sign of infiltrate or mass. No sign of pleural effusion. No pneumothorax. Bones and soft tissues: No significant findings. IMPRESSION: Unremarkable chest. Dictated by: Toni Mayorga MD @ 05/01/2017 20:03:35 (Electronic Signature) Report Signed by Proxy. SUJATA
== END 2017-05-01 20:21 | disposition home or self-care (01) ==
LOC: MW.ED 18:40
DX: F41.0 Panic disorder [episodic paroxysmal anxiety] (principal); F45.8 Other somatoform disorders; Z88.6 Allergy status to analgesic agent; Z79.899 Other long term (current) drug therapy; Z87.891 Personal history of nicotine dependence
CPT/HCPCS: 36415; 71046; 71046-26; 80053; 84484; 85025; 85652; 93005; 99282; 99285-25

== ENCOUNTER 2017-08-09 20:50 | Emergency (ER) | payer BC ==
[2017-08-09] MEDS ORDERED: Aspirin 81 MG Tab.Chew PO ONE (21:10)
[2017-08-09] MEDS ORDERED: Famotidine 20 MG/2 ML SDV IVPUSH ONE (21:10)
[2017-08-09] MEDS ORDERED: Sodium Chloride 0.9% 1,000 ML IV ONE ×2 (21:10→22:41)
[2017-08-09] MEDS ORDERED: Sodium Chloride 0.9% 2.5 ML Syringe FLUSH PRN (21:10)
[2017-08-09] MEDS ORDERED: Nitroglycerin 0.4 MG Tab.SL SL ONE (21:10)
[2017-08-09] MEDS ORDERED: Sodium Chloride 0.9% 10 ML Syringe FLUSH PRN (21:10)
--- NOTE | 2017-08-09 21:33 | EDM.PDOC ---
ED HPI GENERAL MEDICAL PROBLEM - General Chief Complaint: Cardiovascular Problem Stated Complaint: CHEST PAIN Time Seen by Provider: 08/09/17 21:27 Source of Information: Reports: Patient History Limitations: Reports: No Limitations - History of Present Illness INITIAL COMMENTS - FREE TEXT/NARRATIVE: HISTORY AND PHYSICAL: History of present illness: 26-year-old male presenting to emergency department with chief complaint of chest tightness and one episode of syncope past medical history asthma. Patient states that for the past week he's been having some weird chest tightness associeated with taking after taking his Adderall. States that he's been on Adderall for over a year and a half and has had no similar symptoms in the past. Denies any change in medication or brand. There is no actual chest pain is just mostly tightness. Some associated social history of breast but no nausea, vomiting, or diaphoresis. Chest tightness is generalized substernal without radiation. Today while at work he was having this chest tightness and an episode of syncope witnessed. He had been out working and felt overly dehydrated and lightheaded prior to that event. Denies any history of seizures there was no tonic-clonic type movements. States that he just blacked out for a second. No trauma. Patient also reports 1 day of right mid quadrant pain as well as right flank pain. No history of kidney stones, denies any hematuria or dysuria. Denies any bloody stool dark tarry stools. Currently denies any overt chest pain, palpitations, shortness of breath, or focal neurologic deficits. On exam patient has right flank CVA tenderness as well as right mid to right lower abdomen tenderness on deep palpation. No no other obvious findings. Review of systems: As per history of present illness and below otherwise all systems reviewed and negative. Past medical history: As per history of present illness and as reviewed below otherwise noncontributory. Surgical history: As per history of present illness and as reviewed below otherwise noncontributory. Social history: No reported history of drug or alcohol abuse. Family history: As per history of present illness and as reviewed below otherwise noncontributory. Physical exam: HEENT: Atraumatic, normocephalic, pupils reactive, negative for conjunctival pallor or scleral icterus, mucous membranes moist, throat clear, neck supple, nontender, trachea midline. Lungs: Clear to auscultation, breath sounds equal bilaterally, chest nontender. Heart: S1S2, regular, negative for clicks, rubs, or JVD. Abdomen: see above Soft, nondistended, nontender. Negative for masses or hepatosplenomegaly. Pelvis: Stable nontender. Genitourinary: Deferred. Rectal: Deferred. Extremities: Atraumatic, negative for cords or calf pain. Neurovascular unremarkable. Neuro: Awake, alert, oriented. Cranial nerves II through XII unremarkable. Cerebellum unremarkable. Motor and sensory unremarkable throughout. Exam nonfocal. Diagnostics: CBC, CMP, troponin, INR, chest x-ray, EKG, CT abdomen pelvis Therapeutics: 1 L normal saline 1, 2 mg morphine 1 Impression: Atypical chest pain Rule out left nephrolithiasis Plan: Initial workup for atypical chest pain was unremarkable. Patient did elope at some point after initial workup was done. He was scheduled to the CT the abdomen and pelvis for possible kidney stone but left before this could be further evaluated. chest Pain Score (Numeric/FACES): 3 - Related Data Allergies Allergy/AdvReac Type Severity Reaction Status Date / Time aspirin Allergy Shortness Uncoded 08/09/17 21:32 of Breath Home Meds: Home Meds Albuterol Inhaler 1 puff INH ASDIRECTED 02/06/16 [History] Budesonide/Formoterol Fumarate [Symbicort 160-4.5 Mcg Inhaler] 1 puff INH BID [History] Amphetamine/Dextroamphetamine [Adderall] 10 mg PO BID 04/03/17 [History] Past Medical History - Past Health History Medical/Surgical History: Denies Medical/Surgical History HEENT History: Reports: Other (See Below) Other HEENT History: Nasal polyps Cardiovascular History: Reports: Angina, Other (See Below) Other Cardiovascular History: palpitations Respiratory History: Reports: Asthma Gastrointestinal History: Reports: None Genitourinary History: Reports: None Musculoskeletal History: Reports: None Neurological History: Reports: None Psychiatric History: Reports: ADD, Anxiety Endocrine/Metabolic History: Reports: None Hematologic History: Reports: None Immunologic History: Reports: None Oncologic (Cancer) History: Reports: None Dermatologic History: Reports: None - Infectious Disease History Infectious Disease History: Reports: Chicken Pox, Other (See Below) Other Infectious Disease History: chldhood - Past Surgical History Head Surgeries/Procedures: Reports: None HEENT Surgical History: Reports: Naso-Sinus Surgery Musculoskeletal Surgical History: Reports: Other (See Below) Social & Family History - Family History Family Medical History: Noncontributory - Caffeine Use Caffeine Use: Reports: None ED ROS GENERAL - Review of Systems Review Of Systems: ROS reveals no pertinent complaints other than HPI. ED EXAM, GENERAL - Physical Exam Exam: See Below Course - Vital Signs Last Recorded V/S: Last Vital Signs Temp 98 F 08/09/17 20:50 Pulse 83 08/09/17 20:50 Resp 18 08/09/17 20:50 BP 159/79 H 08/09/17 22:18 Pulse Ox 96 08/09/17 20:50 - Orders/Labs/Meds Orders: Active Orders 24 hr Category Date Time Status Cardiac Monitoring [RC] . DIRECTED Care 08/09/17 21:10 Active EKG Documentation Completion [RC] STAT Care 08/09/17 21:10 Active Oxygen Therapy [RC] ASDIRECTED Care 08/09/17 21:10 Active Chest 1V Frontal [CR] Stat Exams 08/09/17 21:10 Taken UA W/MICROSCOPIC [URIN] Stat Lab 08/09/17 22:40 Ordered Saline Lock Insert [OM.PC] Stat Oth 08/09/17 21:10 Ordered Labs: Laboratory Tests 08/09/17 08/09/17 08/09/17 Range/Units 21:03 21:03 22:40 WBC 7.97 (4.0-11.0) K/uL RBC 5.21 (4.50-5.90) M/uL Hgb 16.1 (13.0-17.0) g/dL Hct 46.3 (38.0-50.0) % MCV 88.9 (80.0-98.0) fL MCH 30.9 (27.0-32.0) pg MCHC 34.8 (31.0-37.0) g/dL RDW Std Deviation 46.2 (28.0-62.0) fl RDW Coeff of Aisha 14 (11.0-15.0) % Plt Count 368 (150-400) K/uL MPV 10.10 (7.40-12.00) fL Neut % (Auto) 52.3 (48.0-80.0) % Lymph % (Auto) 30.6 (16.0-40.0) % [place] % (Auto) 13.2 (0.0-15.0) % Eos % (Auto) 3.5 (0.0-7.0) % Baso % (Auto) 0.4 (0.0-1.5) % Neut # (Auto) 4.2 (1.4-5.7) K/uL Lymph # (Auto) 2.4 (0.6-2.4) K/uL [place] # (Auto) 1.1 H (0.0-0.8) K/uL Eos # (Auto) 0.3 (0.0-0.7) K/uL Baso # (Auto) 0.0 (0.0-0.1) K/uL Nucleated RBC % 0.0 /100WBC Nucleated RBCs # 0 K/uL Sodium 139 (136-148) mmol/L Potassium 3.5 (3.5-5.1) mmol/L Chloride 103 (98-107) mmol/L Carbon Dioxide 26.3 (21.0-32.0) mmol/L BUN 25 H (7.0-18.0) mg/dL Creatinine 1.3 (0.8-1.3) mg/dL Est Cr Clr Drug Dosing 93.68 mL/min Estimated GFR (MDRD) > 60.0 ml/min Glucose 114 H (74-106) mg/dL Calcium 9.4 (8.5-10.1) mg/dL Total Bilirubin 0.6 (0.2-1.0) mg/dL AST 26 (15-37) IU/L ALT 37 (14-63) IU/L Alkaline Phosphatase 125 H (46-116) U/L Creatine Kinase 465 H (26-308) U/L Troponin I < 0.050 (0.000-0.056) ng/mL Total Protein 8.2 (6.4-8.2) g/dL Albumin 4.3 (3.4-5.0) g/dL Globulin 3.9 H (2.0-3.5) g/dL Albumin/Globulin Ratio 1.1 L (1.3-2.8) Urine Color YELLOW Urine Appearance CLEAR Urine pH 5.5 (5.0-8.0) Ur Specific [place] >= 1.030 (1.001-1.035) Urine Protein NEGATIVE (NEGATIVE) mg/dL Urine Glucose (UA) NEGATIVE (NEGATIVE) mg/dL Urine Ketones TRACE H (NEGATIVE) mg/dL Urine Occult Blood TRACE-LYSED (NEGATIVE) Urine Nitrite NEGATIVE (NEGATIVE) Urine Bilirubin NEGATIVE (NEGATIVE) Urine Urobilinogen 0.2 (<2.0) EU/dL Ur Leukocyte Esterase NEGATIVE (NEGATIVE) Urine RBC 1-3 (0-2/HPF) Urine WBC 0-2 (0-5/HPF) Ur Epithelial Cells NOT SEEN (NONE-FEW) Amorphous Sediment FEW (NEGATIVE) Urine Bacteria FEW (NEGATIVE) Urine Mucus FEW (NONE-MOD) Urine Sperm RARE (NEGATIVE) Meds: Medications Discontinued Medications Generic Name Dose Route Start Last Admin Trade Name Freq PRN Reason Stop Dose Admin Aspirin 324 mg 08/09/17 21:10 08/09/17 22:17 Aspirin PO 08/09/17 21:11 Not Given ONETIME ONE Famotidine 20 mg 08/09/17 21:10 08/09/17 22:19 Pepcid IVPUSH 08/09/17 21:11 Not Given ONETIME ONE Sodium Chloride 1,000 mls @ 999 mls/hr 08/09/17 21:10 08/09/17 21:28 Normal Saline IV 08/09/17 22:10 999 mls/hr .Bolus ONE Administration Sodium Chloride 1,000 mls @ 999 mls/hr 08/09/17 22:41 08/09/17 23:17 Normal Saline IV 08/09/17 23:41 999 mls/hr STAT ONE Administration Morphine Sulfate 2 mg 08/09/17 21:49 08/09/17 22:17 Morphine IVPUSH 08/09/17 21:50 Not Given ONETIME ONE Nitroglycerin 0.4 mg 08/09/17 21:10 08/09/17 22:18 Nitrostat SL 08/09/17 21:11 Not Given ONETIME ONE Sodium Chloride 10 ml 08/09/17 21:10 Saline Flush FLUSH ASDIRECTED PRN Keep Vein Open Sodium Chloride 2.5 ml 08/09/17 21:10 Saline Flush FLUSH ASDIRECTED PRN Keep Vein Open Departure - Departure Time of Disposition: 00:56 Disposition: Eloped 07 Condition: Good Clinical Impression: Atypical chest pain Referrals: PCP,Unknown [Primary Care Provider] - Forms: ED Department Discharge Additional Instructions: Patient eloped
[2017-08-09 21:40] LABS: CHLORIDE,CL 103 mmol/L (98-107); SODIUM,NA 139 mmol/L (136-148)
[2017-08-09] MEDS ORDERED: Morphine 2 MG/ML Syringe IVPUSH ONE (21:49)
[2017-08-09 22:19] VITALS: BP 159/79
--- NOTE | 2017-08-10 16:34 | CR ---
EXAM DATE: 08/09/17 PATIENT'S AGE: 26 Patient: JUDITH ERNANDEZ Facility: [place], [place] Site . Site : 1990 Study: XRay Chest [id number] 9:53:59 PM Ordering Physician: Doctor Hdz Final Report: INDICATION: Chest pain TECHNIQUE: Chest one view COMPARISON: May 01, 2017 FINDINGS: Cardiovascular and mediastinum: Heart size and vasculature are normal in caliber and appearance. Mediastinum is within normal limits. Lungs and pleural spaces: Lungs are clear. No sign of infiltrate or mass. No sign of pleural effusion. No pneumothorax. Bones and soft tissues: No significant findings. IMPRESSION: No sign of acute disease. Dictated by Pia Maravilla MD @ Aug 09 2017 9:55PM (Electronic Signature) Report Signed by Proxy. SUJATA
== END 2017-08-10 00:33 | disposition left against medical advice (07) ==
LOC: MW.ED 20:50
DX: R07.89 Other chest pain (principal); Z88.6 Allergy status to analgesic agent
CPT/HCPCS: 71045; 80053; 81001; 82550; 84484; 85025; 93005; 96360; 96361; 99285; J7040

== ENCOUNTER 2018-04-15 20:12 | Emergency (ER) | payer BC ==
--- NOTE | 2018-04-15 20:30 | EDM.PDOC ---
ED HPI GENERAL MEDICAL PROBLEM - General Chief Complaint: Respiratory Problem Stated Complaint: TROUBLE BREATHING Time Seen by Provider: 04/15/18 20:26 Source of Information: Reports: Patient History Limitations: Reports: No Limitations - History of Present Illness INITIAL COMMENTS - FREE TEXT/NARRATIVE: HISTORY AND PHYSICAL: History of present illness: Patient's 27-year-old male here with concern about his breathing. He states that he intermittently smokes marijuana 20 minutes prior to arrival to the ED seeking that there was a cigarette. He is very allergic to marijuana and was concerned about his breathing. He was initially short of breath and wheezing but used his nebulizer and steroid inhaler and this has resolved. He states he feels a little tightness chest but "freaked out" and came to the ED. O2 saturation 98% on RA without any work of breathing. Review of systems: As per history of present illness and below otherwise all systems reviewed and negative. Past medical history: As per history of present illness and as reviewed below otherwise noncontributory. Surgical history: As per history of present illness and as reviewed below otherwise noncontributory. Social history: No reported history of drug or alcohol abuse. Family history: As per history of present illness and as reviewed below otherwise noncontributory. Physical exam: General: Patient sitting comfortably in no acute distress and nontoxic appearing HEENT: Atraumatic, normocephalic, pupils reactive, negative for conjunctival pallor or scleral icterus, mucous membranes moist, throat clear, neck supple, nontender, trachea midline. No meningeal signs. Lungs: Clear to auscultation, breath sounds equal bilaterally, chest nontender. No wheezing or increased work of breathing. Heart: S1S2, regular, negative for clicks, rubs, or overt murmur. Abdomen: Soft, nondistended, nontender. Negative for masses or hepatosplenomegaly. Negative for costovertebral tenderness. Pelvis: Stable nontender. Genitourinary: Deferred. Rectal: Deferred. Extremities: Atraumatic, negative for cords or calf pain. Neurovascular unremarkable. Neuro: Awake, alert, oriented. Cranial nerves II through XII unremarkable. Cerebellum unremarkable. Motor and sensory unremarkable throughout. Exam nonfocal. Notes: Diagnostics: Declined chest x-ray Therapeutics: None Prescriptions: Medrol dosepak Impression: Medical screening exam, history of asthma Plan: 1. Continue home medications as instructed. You may take medrol dosepak if needed. 2. Follow up with primary care provider 3. Return to ED as needed as discussed Definitive disposition and diagnosis as appropriate pending reevaluation and review of above. - Related Data Allergies Allergy/AdvReac Type Severity Reaction Status Date / Time grass pollen Allergy Shortness Verified 04/15/18 20:16 of Breath pollen extracts Allergy Shortness Verified 04/15/18 20:16 of Breath aspirin Allergy Shortness Uncoded 04/15/18 20:16 of Breath Home Meds: Home Meds Albuterol Inhaler 1 puff INH ASDIRECTED 02/06/16 [History] Budesonide/Formoterol Fumarate [Symbicort 160-4.5 Mcg Inhaler] 1 puff INH BID [History] Amphetamine/Dextroamphetamine [Adderall] 10 mg PO BID 04/03/17 [History] Tiotropium [Spiriva] 18 mcg INH BID 04/15/18 [History] methylPREDNISolone [Medrol] 4 mg PO ASDIRECTED #1 tab.ds.pk 04/15/18 [Rx] Past Medical History - Past Health History Medical/Surgical History: Denies Medical/Surgical History HEENT History: Reports: Other (See Below) Other HEENT History: Nasal polyps Cardiovascular History: Reports: Other (See Below) Other Cardiovascular History: Palpitations Respiratory History: Reports: Asthma Gastrointestinal History: Reports: None Genitourinary History: Reports: None Musculoskeletal History: Reports: None Neurological History: Reports: None Psychiatric History: Reports: ADD, Anxiety Endocrine/Metabolic History: Reports: None Hematologic History: Reports: None Immunologic History: Reports: None Oncologic (Cancer) History: Reports: None Dermatologic History: Reports: None - Infectious Disease History Infectious Disease History: Reports: None Other Infectious Disease History: chldhood - Past Surgical History Head Surgeries/Procedures: Reports: None HEENT Surgical History: Reports: Naso-Sinus Surgery Musculoskeletal Surgical History: Reports: Other (See Below) Social & Family History - Family History Family Medical History: Noncontributory - Caffeine Use Caffeine Use: Reports: None - Recreational Drug Use Recreational Drug Use: Yes Drug Use in Last 12 Months: Yes Recreational Drug Type: Reports: Marijuana/Hashish ED ROS GENERAL - Review of Systems Review Of Systems: ROS reveals no pertinent complaints other than HPI. ED EXAM, GENERAL - Physical Exam Exam: See Below (see dictation) Course - Vital Signs Last Recorded V/S: Last Vital Signs Temp 97.4 F 04/15/18 20:18 Pulse 96 04/15/18 20:18 Resp 18 04/15/18 20:18 BP 132/79 04/15/18 20:18 Pulse Ox 98 04/15/18 20:18 Departure - Departure Time of Disposition: 20:29 Disposition: Home, Self-Care 01 Condition: Good Clinical Impression: Encounter for medical screening examination, History of asthma - Discharge Information Prescriptions: methylPREDNISolone [Medrol] 4 mg PO ASDIRECTED #1 tab.ds.pk Referrals: PCP,Unknown [Primary Care Provider] - Additional Instructions: The following information is given to patients seen in the emergency department who are being discharged to home. This information is to outline your options for follow-up care. We provide all patients seen in our emergency department with a follow-up referral. The need for follow-up, as well as the timing and circumstances, are variable depending upon the specifics of your emergency department visit. If you don't have a primary care physician on staff, we will provide you with a referral. We always advise you to contact your personal physician following an emergency department visit to inform them of the circumstance of the visit and for follow-up with them and/or the need for any referrals to a consulting specialist. The emergency department will also refer you to a specialist when appropriate. This referral assures that you have the opportunity for follow-up care with a specialist. All of these measure are taken in an effort to provide you with optimal care, which includes your follow-up. Under all circumstances we always encourage you to contact your private physician who remains a resource for coordinating your care. When calling for follow-up care, please make the office aware that this follow-up is from your recent emergency room visit. If for any reason you are refused follow-up, please contact the [facility] Emergency Department at and asked to speak to the emergency department charge nurse. [facility] [address] [place] [id number] [address] [place] [address] 1. Continue home medications as instructed. You may take medrol dosepak if needed. 2. Follow up with primary care provider 3. Return to ED as needed as discussed
[2018-04-15 20:38] VITALS: BP 127/59
== END 2018-04-15 20:38 | disposition home or self-care (01) ==
LOC: MW.ED 20:12
DX: Z00.00 Encounter for general adult medical examination without abnormal findings (principal); J45.909 Unspecified asthma, uncomplicated; Z88.6 Allergy status to analgesic agent; Z88.8 Allergy status to other drugs, medicaments and biological substances
CPT/HCPCS: 99283

== ENCOUNTER 2019-03-03 10:55 | Emergency (ER) | payer BC ==
[2019-03-03] MEDS ORDERED: Sodium Chloride 0.9% 1,000 ML IV ONE (11:19)
[2019-03-03] MEDS ORDERED: Meclizine 25 MG Tab PO ONE (11:20)
[2019-03-03] MEDS ORDERED: Ondansetron 4 MG/2 ML SDV IVPUSH ONE (11:20)
[2019-03-03 12:01] LABS: BLOOD UREA NITROGEN,BUN 24 mg/dL (7.0-18.0); CARBON DIOXIDE,CO2 28.7 mmol/L (21.0-32.0); CHLORIDE,CL 100 mmol/L (98-107); GLUCOSE RANDOM 105 mg/dL (74-106); LIPASE 139 U/L (73-393); POTASSIUM,K 3.9 mmol/L (3.5-5.1); SODIUM,NA 138 mmol/L (136-148)
--- NOTE | 2019-03-03 12:13 | EDM.PDOC ---
ED HPI GENERAL MEDICAL PROBLEM - General Chief Complaint: Cardiovascular Problem Stated Complaint: PAIN IN LEFT SIDE Time Seen by Provider: 03/03/19 11:29 Source of Information: Reports: Patient History Limitations: Reports: No Limitations - History of Present Illness INITIAL COMMENTS - FREE TEXT/NARRATIVE: This 28 year old male who is on Adderall for ADD is admitted to the ED because of left lateral chest wall discomfort. He states that earlier today according to his Apple Watch his heart rate was 165 prior to arrival to the ED. He states that his heart rate has been as high as 200 beats/minute. He showed me his watch and I verified his heart rate on the Apple Watch that tracks for up to 10-20 days. I told him that this is due to his medications. He denies any SOB or lightheadedness. He states that sometime taking in a deep breath aggravates his left chest pain. Onset: Sudden Duration: Minutes: (40-50 minutes.) Location: Reports: Chest Quality: Reports: Dull (along the lateral aspects of the lower left chest area) Severity: Mild left side Pain Score (Numeric/FACES): 2 - Related Data Allergies Allergy/AdvReac Type Severity Reaction Status Date / Time grass pollen Allergy Shortness Verified 03/03/19 11:07 of Breath pollen extracts Allergy Shortness Verified 03/03/19 11:07 of Breath aspirin Allergy Shortness Uncoded 03/03/19 11:07 of Breath Home Meds: Home Meds Albuterol Inhaler 1 puff INH ASDIRECTED 02/06/16 [History] Amphetamine/Dextroamphetamine [Adderall] 10 mg PO BID 04/03/17 [History] Tiotropium [Spiriva] 18 mcg INH BID 04/15/18 [History] Brio Inhaler 1 dose INH DAILY 03/03/19 [History] Past Medical History - Past Health History Medical/Surgical History: Denies Medical/Surgical History HEENT History: Reports: Other (See Below) Other HEENT History: Nasal polyps Cardiovascular History: Reports: Other (See Below) Other Cardiovascular History: Palpitations Respiratory History: Reports: Asthma Gastrointestinal History: Reports: None Genitourinary History: Reports: None Musculoskeletal History: Reports: None Neurological History: Reports: None Psychiatric History: Reports: ADD, Anxiety Endocrine/Metabolic History: Reports: None Hematologic History: Reports: None Immunologic History: Reports: None Oncologic (Cancer) History: Reports: None Dermatologic History: Reports: None - Infectious Disease History Infectious Disease History: Reports: None Other Infectious Disease History: chldhood - Past Surgical History Head Surgeries/Procedures: Reports: None HEENT Surgical History: Reports: Naso-Sinus Surgery Musculoskeletal Surgical History: Reports: Other (See Below) Social & Family History - Family History Family Medical History: Noncontributory - Tobacco Use Smoking Status *Q: Never Smoker - Caffeine Use Caffeine Use: Reports: None - Recreational Drug Use Recreational Drug Use: No ED ROS GENERAL - Review of Systems Review Of Systems: See Below Constitutional: Reports: No Symptoms HEENT: Reports: No Symptoms Respiratory: Reports: No Symptoms Cardiovascular: Reports: Chest Pain (as noted above), Palpitations Endocrine: Reports: No Symptoms GI/Abdominal: Reports: No Symptoms : Reports: No Symptoms Musculoskeletal: Reports: No Symptoms Skin: Reports: No Symptoms Neurological: Reports: No Symptoms Psychiatric: Reports: No Symptoms ED EXAM, GENERAL - Physical Exam Exam: See Below Exam Limited By: No Limitations General Appearance: Alert, WD/WN, No Apparent Distress Eye Exam: Bilateral Eye: EOMI, Normal Inspection, PERRL Ears: Normal External Exam, Normal Canal, Hearing Grossly Normal, Normal TMs Ear Exam: Bilateral Ear: Auricle Normal, Canal Normal, TM normal Nose: Normal Inspection, Normal Mucosa, No Blood Throat/Mouth: Normal Inspection, Normal Lips, Normal Teeth, Normal Gums, Normal Oropharynx, Normal Voice, No Airway Compromise Head: Atraumatic, Normocephalic Neck: Normal Inspection, Supple, Non-Tender, Full Range of Motion Respiratory/Chest: No Respiratory Distress, Lungs Clear, Normal Breath Sounds, No Accessory Muscle Use, Chest Non-Tender Cardiovascular: Normal Peripheral Pulses, Regular Rate, Rhythm (Heart rate of 78 beats per minute and regular). No: No Murmur Peripheral Pulses: 3+: Dorsalis Pedis (L), Dorsalis Pedis (R), 4+: Carotid (L), Carotid (R), Radial (L), Radial (R) GI/Abdominal: Normal Bowel Sounds, Soft, Non-Tender, No Organomegaly, No Distention, No Abnormal Bruit, No Mass (Male) Exam: Deferred Rectal (Males) Exam: Deferred Back Exam: Normal Inspection, Full Range of Motion, NT Extremities: Normal Inspection, Normal Range of Motion, Non-Tender, Normal Capillary Refill, No Pedal Edema Neurological: Alert, Oriented, CN II-XII Intact, Normal Cognition, Normal Gait, Normal Reflexes, No Motor/Sensory Deficits Psychiatric: Normal Affect, Normal Mood Skin Exam: Warm, Dry, Intact, Normal Color, No Rash Lymphatic: No Adenopathy Course - Vital Signs Text/Narrative:: The patient is doing fine with a heart rate of 82 at time of discharge. I have reviewed all of his diagnostic test including his Troponin that was negative times two as well as a unremarkable ECG. I discussed with him the need to have his doctor get him off Adderall in that this is causing him to have tachycardia and other undesirable symptoms. He will be discharged at this time. Mr. Mai agrees with the discharge plan. Last Recorded V/S: Last Vital Signs Temp 98.3 F 03/03/19 15:15 Pulse 74 03/03/19 15:15 Resp 16 03/03/19 15:15 BP 119/63 03/03/19 15:15 Pulse Ox 98 03/03/19 15:15 Orthostatic Blood Pressure [ 126/69 Standing] Orthostatic Blood Pressure [ 117/69 Sitting] Orthostatic Blood Pressure [ 121/66 Supine] - Orders/Labs/Meds Orders: Active Orders 24 hr Category Date Time Status EKG Documentation Completion [RC] STAT Care 03/03/19 11:20 Active Orthostatic Vital Signs [RC] ASDIRECTED Care 03/03/19 11:20 Active Labs: Laboratory Tests 03/03/19 03/03/19 03/03/19 Range/Units 11:29 11:29 11:31 WBC 9.80 (4.0-11.0) K/uL RBC 4.83 (4.50-5.90) M/uL Hgb 14.8 (13.0-17.0) g/dL Hct 43.3 (38.0-50.0) % MCV 89.6 (80.0-98.0) fL MCH 30.6 (27.0-32.0) pg MCHC 34.2 (31.0-37.0) g/dL RDW Std Deviation 41.8 (28.0-62.0) fl RDW Coeff of Aisha 13 (11.0-15.0) % Plt Count 347 (150-400) K/uL MPV 10.20 (7.40-12.00) fL Neut % (Auto) 87.6 H (48.0-80.0) % Lymph % (Auto) 8.3 L (16.0-40.0) % [place] % (Auto) 2.2 (0.0-15.0) % Eos % (Auto) 1.7 (0.0-7.0) % Baso % (Auto) 0.2 (0.0-1.5) % Neut # (Auto) 8.6 H (1.4-5.7) K/uL Lymph # (Auto) 0.8 (0.6-2.4) K/uL [place] # (Auto) 0.2 (0.0-0.8) K/uL Eos # (Auto) 0.2 (0.0-0.7) K/uL Baso # (Auto) 0.0 (0.0-0.1) K/uL Nucleated RBC % 0.0 /100WBC Nucleated RBCs # 0 K/uL Sodium (136-148) mmol/L Potassium (3.5-5.1) mmol/L Chloride (98-107) mmol/L Carbon Dioxide (21.0-32.0) mmol/L BUN (7.0-18.0) mg/dL Creatinine (0.8-1.3) mg/dL Est Cr Clr Drug Dosing mL/min Estimated GFR (MDRD) ml/min Glucose (74-106) mg/dL Calcium (8.5-10.1) mg/dL Total Bilirubin (0.2-1.0) mg/dL AST (15-37) IU/L ALT (14-63) IU/L Alkaline Phosphatase (46-116) U/L Troponin I (0.000-0.056) ng/mL Total Protein (6.4-8.2) g/dL Albumin (3.4-5.0) g/dL Globulin (2.6-4.0) g/dL Albumin/Globulin Ratio (0.9-1.6) Lipase (73-393) U/L Urine Color YELLOW Urine Appearance CLEAR Urine pH 6.0 (5.0-8.0) Ur Specific [place] 1.025 (1.001-1.035) Urine Protein NEGATIVE (NEGATIVE) mg/dL Urine Glucose (UA) NEGATIVE (NEGATIVE) mg/dL Urine Ketones NEGATIVE (NEGATIVE) mg/dL Urine Occult Blood NEGATIVE (NEGATIVE) Urine Nitrite NEGATIVE (NEGATIVE) Urine Bilirubin NEGATIVE (NEGATIVE) Urine Urobilinogen 0.2 (<2.0) EU/dL Ur Leukocyte Esterase NEGATIVE (NEGATIVE) Urine Opiates Screen NEGATIVE (NEGATIVE) Ur Oxycodone Screen NEGATIVE (NEGATIVE) Urine Methadone Screen NEGATIVE (NEGATIVE) Ur Barbiturates Screen NEGATIVE (NEGATIVE) Ur Phencyclidine Scrn NEGATIVE (NEGATIVE) Ur Amphetamine Screen POSITIVE (NEGATIVE) U Methamphetamines Scrn NEGATIVE (NEGATIVE) U Benzodiazepines Scrn NEGATIVE (NEGATIVE) U Cocaine Metab Screen NEGATIVE (NEGATIVE) U Marijuana (THC) Screen NEGATIVE (NEGATIVE) Ethyl Alcohol mg/dL 03/03/19 03/03/19 Range/Units 11:31 13:42 WBC (4.0-11.0) K/uL RBC (4.50-5.90) M/uL Hgb (13.0-17.0) g/dL Hct (38.0-50.0) % MCV (80.0-98.0) fL MCH (27.0-32.0) pg MCHC (31.0-37.0) g/dL RDW Std Deviation (28.0-62.0) fl RDW Coeff of Aisha (11.0-15.0) % Plt Count (150-400) K/uL MPV (7.40-12.00) fL Neut % (Auto) (48.0-80.0) % Lymph % (Auto) (16.0-40.0) % [place] % (Auto) (0.0-15.0) % Eos % (Auto) (0.0-7.0) % Baso % (Auto) (0.0-1.5) % Neut # (Auto) (1.4-5.7) K/uL Lymph # (Auto) (0.6-2.4) K/uL [place] # (Auto) (0.0-0.8) K/uL Eos # (Auto) (0.0-0.7) K/uL Baso # (Auto) (0.0-0.1) K/uL Nucleated RBC % /100WBC Nucleated RBCs # K/uL Sodium 138 (136-148) mmol/L Potassium 3.9 (3.5-5.1) mmol/L Chloride 100 (98-107) mmol/L Carbon Dioxide 28.7 (21.0-32.0) mmol/L BUN 24 H (7.0-18.0) mg/dL Creatinine 1.2 (0.8-1.3) mg/dL Est Cr Clr Drug Dosing 99.69 mL/min Estimated GFR (MDRD) > 60.0 ml/min Glucose 105 (74-106) mg/dL Calcium 9.8 (8.5-10.1) mg/dL Total Bilirubin 0.3 (0.2-1.0) mg/dL AST 18 (15-37) IU/L ALT 34 (14-63) IU/L Alkaline Phosphatase 104 (46-116) U/L Troponin I < 0.050 < 0.050 (0.000-0.056) ng/mL Total Protein 8.7 H (6.4-8.2) g/dL Albumin 4.0 (3.4-5.0) g/dL Globulin 4.7 H (2.6-4.0) g/dL Albumin/Globulin Ratio 0.9 (0.9-1.6) Lipase 139 (73-393) U/L Urine Color Urine Appearance Urine pH (5.0-8.0) Ur Specific [place] (1.001-1.035) Urine Protein (NEGATIVE) mg/dL Urine Glucose (UA) (NEGATIVE) mg/dL Urine Ketones (NEGATIVE) mg/dL Urine Occult Blood (NEGATIVE) Urine Nitrite (NEGATIVE) Urine Bilirubin (NEGATIVE) Urine Urobilinogen (<2.0) EU/dL Ur Leukocyte Esterase (NEGATIVE) Urine Opiates Screen (NEGATIVE) Ur Oxycodone Screen (NEGATIVE) Urine Methadone Screen (NEGATIVE) Ur Barbiturates Screen (NEGATIVE) Ur Phencyclidine Scrn (NEGATIVE) Ur Amphetamine Screen (NEGATIVE) U Methamphetamines Scrn (NEGATIVE) U Benzodiazepines Scrn (NEGATIVE) U Cocaine Metab Screen (NEGATIVE) U Marijuana (THC) Screen (NEGATIVE) Ethyl Alcohol 3 mg/dL Meds: Medications Discontinued Medications Generic Name Dose Route Start Last Admin Trade Name Freq PRN Reason Stop Dose Admin Sodium Chloride 1,000 mls @ 999 mls/hr 03/03/19 11:19 03/03/19 11:36 Normal Saline IV 03/03/19 12:19 999 mls/hr BOLUS ONE Administration Lorazepam 0.5 mg 03/03/19 12:27 03/03/19 12:32 Ativan PO 03/03/19 12:28 0.5 mg ONETIME ONE Administration Meclizine HCl 25 mg 03/03/19 11:20 03/03/19 11:36 Antivert PO 03/03/19 11:21 25 mg ONETIME ONE Administration Ondansetron HCl 4 mg 03/03/19 11:20 03/03/19 11:36 Zofran IVPUSH 03/03/19 11:21 4 mg ONETIME ONE Administration Departure - Departure Time of Disposition: 15:20 Disposition: Home, Self-Care 01 Condition: Good Clinical Impression: Atypical chest pain, Tachycardia Referrals: PCP,None [Primary Care Provider] - Forms: ED Department Discharge Additional Instructions: Hold off on Adderall for now. Follow up with PCP in the next two to three days. Rest for the next 24 hours. Return to the ED if your condition gets worse or should you have any further concerns. The following information is given to patients seen in the emergency department who are being discharged to home. This information is to outline your options for follow-up care. We provide all patients seen in our emergency department with a follow-up referral. The need for follow-up, as well as the timing and circumstances, are variable depending upon the specifics of your emergency department visit. If you don't have a primary care physician on staff, we will provide you with a referral. We always advise you to contact your personal physician following an emergency department visit to inform them of the circumstance of the visit and for follow-up with them and/or the need for any referrals to a consulting specialist. The emergency department will also refer you to a specialist when appropriate. This referral assures that you have the opportunity for follow-up care with a specialist. All of these measure are taken in an effort to provide you with optimal care, which includes your follow-up. Under all circumstances we always encourage you to contact your private physician who remains a resource for coordinating your care. When calling for follow-up care, please make the office aware that this follow-up is from your recent emergency room visit. If for any reason you are refused follow-up, please contact the [facility] Emergency Department at and asked to speak to the emergency department charge nurse. Sepsis Event Note - Evaluation Sepsis Screening Result: No Definite Risk - Focused Exam Vital Signs: Vital Signs Temp Pulse Resp BP Pulse Ox 03/03/19 15:15 98.3 F 74 16 119/63 98 03/03/19 12:54 98.2 F 87 17 127/70 97 03/03/19 11:05 98.0 F 82 20 147/77 H 99 Date Exam was Performed: 03/03/19 Time Exam was Performed: 15:16
[2019-03-03] MEDS ORDERED: LORazepam 0.5 MG Tab PO ONE (12:27)
--- NOTE | 2019-03-03 12:33 | CR ---
Chest: Portable view of the chest was obtained. Comparison: Prior chest x-ray of 08/09/17. Heart size and mediastinum are normal. Lungs are clear with no acute parenchymal change. Bony structures are grossly intact. Impression: 1. Nothing acute is appreciated on portable chest x-ray. Diagnostic code #1 This report was dictated in [place] Standard Time
[2019-03-03 15:16] VITALS: BP 119/63; PULSE 74
== END 2019-03-03 15:33 | disposition home or self-care (01) ==
LOC: MW.ED 10:55
DX: R07.89 Other chest pain (principal); R00.0 Tachycardia, unspecified; Z88.8 Allergy status to other drugs, medicaments and biological substances; Z88.6 Allergy status to analgesic agent
CPT/HCPCS: 36415; 71045; 80053; 80305; 80320; 81003; 83690; 84484; 85025; 93005; 96361; 96374; 99285; A9270; J2405; J7030; 99284; G0480

== ENCOUNTER 2019-04-03 03:23 | Emergency (ER) | payer BC ==
--- NOTE | 2019-04-03 03:37 | EDM.PDOC ---
ED HPI GENERAL MEDICAL PROBLEM - General Chief Complaint: Chest Pain Stated Complaint: CHEST PAIN Time Seen by Provider: 04/03/19 03:36 Source of Information: Reports: Patient - History of Present Illness INITIAL COMMENTS - FREE TEXT/NARRATIVE: CC chest pain HPI: This is a 28-year-old male that developed sharp substernal respirophasic chest pain today. Patient is trying to wean himself off of the Adderall that he was prescribed. Denies any arm or jaw pain shortness of breath nausea vomiting but he has been feeling very syncopal in bed and noticing on his apple watch that his heart rate accelerates up into the 130s. PMHX/PSHX: Negative Social History: Negative for tobacco, negative for alcohol, negative for street drugs or marijuana Family history: Hypertension ROS: see chart PE: VS afebrile vital signs stable General: No apparent distress Head: Atraumatic normocephalic no lumps bumps or bruises Eyes: EOMI PERRLA Ears: TMs intact no hemotympanum no signs of infection no mastoid tenderness Nose: No epistaxis nares patent no septal wall hematoma Throat: No pharyngeal erythema or exudate no tonsillar enlargement Neck: Supple, no cervical lymphadenopathy Chest wall: Patient has reproducible chest wall pain. Heart: Regular rate and rhythm without murmur gallop or rub Lungs: Clear to auscultation and percussion without rales rhonchi or wheeze Abdomen: Soft nontender nondistended without guarding rigidity or rebound Neck: No spinal point tenderness full range of motion in all 6 directions Back: No spinal paraspinal or CVA tenderness Extremities: full rom through out. no effusions skin: Warm dry intact no rashes neurologic: cranial nerves II through XII intact. No focal motor or sensory deficits noted MDM: Differential diagnosis: Acute coronary syndrome aortic dissection costochondritis pulmonary embolism pneumonia pneumothorax ED course: Interesting the patient's drug screen is negative even for amphetamines even though he endorses taking Adderall. His CBC chemistries troponin and EKG chest x-ray negative respiratory rate 12 on my count no risk factors for PE. No leg or calf pain. Patient is PERC rule negative. Symptoms not at all consistent with aortic dissection patient's mediastinum is narrow on chest film and equal pulses in his upper extremities. Therefore no signs of aortic dissection. Patient has reproducible chest pain here I suspect costochondritis. I advised the patient to take ibuprofen on a full stomach. Diagnosis: Chest wall pain Disposition: Home chest Pain Score (Numeric/FACES): 3 - Related Data Allergies Allergy/AdvReac Type Severity Reaction Status Date / Time grass pollen Allergy Shortness Verified 04/03/19 03:36 of Breath pollen extracts Allergy Shortness Verified 04/03/19 03:36 of Breath aspirin Allergy Shortness Uncoded 04/03/19 03:36 of Breath Home Meds: Home Meds Albuterol Inhaler 1 puff INH ASDIRECTED 02/06/16 [History] Amphetamine/Dextroamphetamine [Adderall] 15 mg PO DAILY 04/03/17 [History] Tiotropium [Spiriva] 18 mcg INH BID 04/15/18 [History] Brio Inhaler 1 dose INH DAILY 03/03/19 [History] Past Medical History - Past Health History Medical/Surgical History: Denies Medical/Surgical History HEENT History: Reports: Other (See Below) Other HEENT History: Nasal polyps Cardiovascular History: Reports: Other (See Below) Other Cardiovascular History: Palpitations Respiratory History: Reports: Asthma Gastrointestinal History: Reports: None Genitourinary History: Reports: None Musculoskeletal History: Reports: None Neurological History: Reports: None Psychiatric History: Reports: ADD, Anxiety Endocrine/Metabolic History: Reports: None Hematologic History: Reports: None Immunologic History: Reports: None Oncologic (Cancer) History: Reports: None Dermatologic History: Reports: None - Infectious Disease History Infectious Disease History: Reports: None Other Infectious Disease History: chldhood - Past Surgical History Head Surgeries/Procedures: Reports: None HEENT Surgical History: Reports: Naso-Sinus Surgery Musculoskeletal Surgical History: Reports: Other (See Below) Social & Family History - Family History Family Medical History: Noncontributory - Caffeine Use Caffeine Use: Reports: None ED ROS GENERAL - Review of Systems Review Of Systems: Comprehensive ROS is negative, except as noted in HPI. ED EXAM, GENERAL - Physical Exam Exam: See Below Free Text/Narrative:: See my dictation Course - Vital Signs Last Recorded V/S: Last Vital Signs Temp 36.7 C 04/03/19 03:37 Pulse 82 04/03/19 03:37 Resp 18 04/03/19 03:37 BP 144/88 H 04/03/19 03:37 Pulse Ox 100 04/03/19 03:37 - Orders/Labs/Meds Orders: Active Orders 24 hr Category Date Time Status EKG Documentation Completion [RC] STAT Care 04/03/19 03:38 Active Labs: Laboratory Tests 04/03/19 04/03/19 04/03/19 Range/Units 03:26 03:26 03:40 WBC 6.52 (4.0-11.0) K/uL RBC 4.89 (4.50-5.90) M/uL Hgb 14.9 (13.0-17.0) g/dL Hct 42.7 (38.0-50.0) % MCV 87.3 (80.0-98.0) fL MCH 30.5 (27.0-32.0) pg MCHC 34.9 (31.0-37.0) g/dL RDW Std Deviation 41.4 (28.0-62.0) fl RDW Coeff of Aisha 13 (11.0-15.0) % Plt Count 313 (150-400) K/uL MPV 9.90 (7.40-12.00) fL Neut % (Auto) 35.1 L (48.0-80.0) % Lymph % (Auto) 42.9 H (16.0-40.0) % [place] % (Auto) 8.4 (0.0-15.0) % Eos % (Auto) 12.1 H (0.0-7.0) % Baso % (Auto) 1.5 (0.0-1.5) % Neut # (Auto) 2.3 (1.4-5.7) K/uL Lymph # (Auto) 2.8 H (0.6-2.4) K/uL [place] # (Auto) 0.6 (0.0-0.8) K/uL Eos # (Auto) 0.8 H (0.0-0.7) K/uL Baso # (Auto) 0.1 (0.0-0.1) K/uL Nucleated RBC % 0.0 /100WBC Nucleated RBCs # 0 K/uL Sodium 139 (136-148) mmol/L Potassium 4.0 (3.5-5.1) mmol/L Chloride 102 (98-107) mmol/L Carbon Dioxide 27.4 (21.0-32.0) mmol/L BUN 14 (7.0-18.0) mg/dL Creatinine 1.1 (0.8-1.3) mg/dL Est Cr Clr Drug Dosing 108.76 mL/min Estimated GFR (MDRD) > 60.0 ml/min Glucose 94 (74-106) mg/dL Calcium 9.5 (8.5-10.1) mg/dL Total Bilirubin 0.4 (0.2-1.0) mg/dL AST 31 (15-37) IU/L ALT 42 (14-63) IU/L Alkaline Phosphatase 97 (46-116) U/L Troponin I < 0.050 (0.000-0.056) ng/mL Total Protein 8.3 H (6.4-8.2) g/dL Albumin 3.8 (3.4-5.0) g/dL Globulin 4.5 H (2.6-4.0) g/dL Albumin/Globulin Ratio 0.8 L (0.9-1.6) Urine Opiates Screen NEGATIVE (NEGATIVE) Ur Oxycodone Screen NEGATIVE (NEGATIVE) Urine Methadone Screen NEGATIVE (NEGATIVE) Ur Barbiturates Screen NEGATIVE (NEGATIVE) Ur Phencyclidine Scrn NEGATIVE (NEGATIVE) Ur Amphetamine Screen NEGATIVE (NEGATIVE) U Methamphetamines Scrn NEGATIVE (NEGATIVE) U Benzodiazepines Scrn NEGATIVE (NEGATIVE) U Cocaine Metab Screen NEGATIVE (NEGATIVE) U Marijuana (THC) Screen NEGATIVE (NEGATIVE) Departure - Departure Time of Disposition: 04:42 Disposition: Home, Self-Care 01 Clinical Impression: Chest pain in adult Forms: ED Department Discharge Additional Instructions: Follow-up with your primary care doctor. Try taking [id number] PPI such as Zantac or Pepcid. Sepsis Event Note - Focused Exam Vital Signs: Vital Signs Temp Pulse Resp BP Pulse Ox 04/03/19 03:37 36.7 C 82 18 144/88 H 100 Date Exam was Performed: 04/03/19 Time Exam was Performed: 04:40 - My Orders Last 24 Hours: My Active Orders 04/03/19 03:38 EKG Documentation Completion [RC] STAT - Assessment/Plan Last 24 Hours: My Active Orders 04/03/19 03:38 EKG Documentation Completion [RC] STAT
[2019-04-03 04:03] LABS: BLOOD UREA NITROGEN,BUN 14 mg/dL (7.0-18.0); CARBON DIOXIDE,CO2 27.4 mmol/L (21.0-32.0); CHLORIDE,CL 102 mmol/L (98-107); GLUCOSE RANDOM 94 mg/dL (74-106); SODIUM,NA 139 mmol/L (136-148)
--- NOTE | 2019-04-03 04:29 | CR ---
INDICATION: Chest pain TECHNIQUE: Chest radiograph 1 view COMPARISON: None FINDINGS: Mediastinum: The mediastinum is normal in appearance. The heart silhouette is normal in size and morphology. Lung: Both lungs are unremarkable in appearance. No sign of pleural effusion seen. No pneumothorax is identified. Bone and Soft tissue: Unremarkable for age. IMPRESSION: 1. No acute cardiopulmonary disease is seen. Dictated by: Miles Jaramillo MD @ 04/03/2019 04:26:46 (Electronically Signed)
[2019-04-03 05:04] VITALS: BP 123/80; PULSE 75
== END 2019-04-03 05:08 | disposition home or self-care (01) ==
LOC: MW.ED 03:23
DX: R07.89 Other chest pain (principal); Z88.6 Allergy status to analgesic agent; Z91.09 Other allergy status, other than to drugs and biological substances; Z79.899 Other long term (current) drug therapy; J45.909 Unspecified asthma, uncomplicated
CPT/HCPCS: 36415; 71045; 71045-26; 80053; 80305-QW; 84484; 85025; 93005; 99283; 99285-25

== ENCOUNTER 2019-04-07 07:00 | Emergency (ER) | payer BC ==
[2019-04-07] MEDS ORDERED: Ondansetron 4 MG/2 ML SDV IVPUSH ONE (07:22)
[2019-04-07] MEDS ORDERED: Morphine 4 MG/ML Syringe IVPUSH ONE ×2 (07:24→08:46)
--- NOTE | 2019-04-07 07:28 | EDM.PDOC ---
ED HPI GENERAL MEDICAL PROBLEM - General Chief Complaint: Genitourinary Problem Stated Complaint: KIDNEY PAIN Time Seen by Provider: 04/07/19 07:12 Source of Information: Reports: Patient - History of Present Illness INITIAL COMMENTS - FREE TEXT/NARRATIVE: Patient complains of abrupt onset of severe right flank pain gross hematuria which began at 630 this morning. No preceding trauma or unusual exertion. Some associated nausea. No prior episodes of this. Pain is burning. It does not radiate into his chest, extremities, and is not associated with any numbness or weakness. He denies personal or family history of abdominal aortic aneurysm. Patient states that his father has a history of kidney stones. There is no other personal or family history of other kidney disease or disorders. He says that he does not take any NSAIDs; when he takes aspirin, it triggers an asthma flare, so he does not take things like ibuprofen, naproxen, or Advil. painful urination Pain Score (Numeric/FACES): 10 - Related Data Allergies Allergy/AdvReac Type Severity Reaction Status Date / Time grass pollen Allergy Shortness Verified 04/07/19 07:20 of Breath pollen extracts Allergy Shortness Verified 04/07/19 07:20 of Breath aspirin Allergy Shortness Uncoded 04/07/19 07:20 of Breath Home Meds: Home Meds Albuterol Inhaler 1 puff INH ASDIRECTED 02/06/16 [History] Amphetamine/Dextroamphetamine [Adderall] 15 mg PO DAILY 04/03/17 [History] Tiotropium [Spiriva] 18 mcg INH BID 04/15/18 [History] Brio Inhaler 1 dose INH DAILY 03/03/19 [History] Ciprofloxacin HCl [Cipro] 500 mg PO BID #20 tablet 04/07/19 [Rx] Past Medical History - Past Health History Medical/Surgical History: Denies Medical/Surgical History HEENT History: Reports: Other (See Below) Other HEENT History: Nasal polyps Cardiovascular History: Reports: Other (See Below) Other Cardiovascular History: Palpitations Respiratory History: Reports: Asthma Gastrointestinal History: Reports: None Genitourinary History: Reports: None Musculoskeletal History: Reports: None Neurological History: Reports: None Psychiatric History: Reports: ADD, Anxiety Endocrine/Metabolic History: Reports: None Insulin Pump Model and Flight Controls Engineer: None Hematologic History: Reports: None Immunologic History: Reports: None Oncologic (Cancer) History: Reports: None Dermatologic History: Reports: None - Infectious Disease History Infectious Disease History: Reports: None Other Infectious Disease History: chldhood - Past Surgical History Head Surgeries/Procedures: Reports: None HEENT Surgical History: Reports: Naso-Sinus Surgery Musculoskeletal Surgical History: Reports: Other (See Below) Social & Family History - Family History Family Medical History: Noncontributory - Tobacco Use Smoking Status *Q: Never Smoker - Caffeine Use Caffeine Use: Reports: Coffee ED ROS GENERAL - Review of Systems Review Of Systems: See Below Constitutional: Denies: Fever, Chills Respiratory: Denies: Shortness of Breath, Cough Cardiovascular: Denies: Chest Pain GI/Abdominal: Reports: Abdominal Pain : Reports: Dysuria, Hematuria Neurological: Denies: Numbness, Weakness ED EXAM, RENAL/ - Physical Exam Exam: See Below Text/Narrative:: General: alert, well appearing, no acute distress HEENT: Atraumatic, normocephalic, pupils reactive, negative for conjunctival pallor or scleral icterus, mucous membranes moist, throat clear, handling oral secretions well. Neck: supple, nontender, trachea midline. Back: No midline tenderness, and no CVA tenderness. Patient is able to twist and bend at the waist without triggering or worsening his pain. Lungs: Clear to auscultation, breath sounds equal bilaterally, chest nontender. Heart: S1S2, regular, negative for clicks, rubs, or JVD. Abdomen: Soft, nondistended, nontender. Negative for masses or hepatosplenomegaly. Skin: warm, dry, good turgor. Musculoskeletal: soft compartments. Extremities: Atraumatic, negative for cords or calf pain. Neurovascular unremarkable. Neuro: Awake, alert, oriented. Cranial nerves II through XII unremarkable. Cerebellum unremarkable. Motor and sensory unremarkable throughout. Exam nonfocal. Plus DTRs throughout. Strong plantar flexion and dorsiflexion. Differential includes, not limited to: Ureteric lithiasis, renal colic, urinary tract infection Labs, urinalysis, CT abdomen pelvis -Zofran, morphine; patient has been cautioned that he will need to call f a ride because he should not drive or operate heavy machinery for about 8 hours after a dose of narcotics; he verbalized understanding and stated that he would comply with this request Course - Vital Signs Text/Narrative:: CT of abdomen and pelvis: No renal calculi, ureteral stone, or ureteral dilatation Scrotal ultrasound: Small left-sided hydrocele; no other abnormality. Report also states that there is no intratesticular abnormality, and that arterial and venous flow are both present. CBC: Leukocytosis with white count 13.84; otherwise unremarkable INR: Normal Chemistry: Remarkable Urinalysis: Nitrite positive, large blood, large leukocyte esterase, red blood cells too numerous to count 8:44 AM advised patient of results. He says the pain is better than when he came in, although there is some residual pain. UA is positive. He is a little young to be getting urinary tract infection. I wonder if he may be experiencing epididymitis; I will check a scrotal ultrasound. If there is nothing concerning, I will discharge him with an antibiotic prescription. Denies prior history of UTIs, so he is referred to both his primary care doctor and to urology. 10:45am patient informed of ultrasound results. He is much more comfortable compared to his initial arrival. Because he says he gets asthma when he take aspirin, I told him to take Tylenol, but not Motrin or Advil, for pain as needed. He says he has a primary care physician. He is asked to see his doctor within a week and urology within 2 to 3 weeks. Return to the emergency department for new, changing, or worsening symptoms. I will discharge him with a prescription for ciprofloxacin to treat his urinary tract infection. Last Recorded V/S: Last Vital Signs Temp 98.2 F 04/07/19 09:54 Pulse 78 04/07/19 10:59 Resp 16 04/07/19 10:59 BP 114/58 L 04/07/19 10:59 Pulse Ox 97 04/07/19 10:59 - Orders/Labs/Meds Orders: Active Orders 24 hr Category Date Time Status Ready for Discharge [RC] PER UNIT ROUTINE Care 04/07/19 10:48 Active Labs: Laboratory Tests 04/07/19 04/07/19 04/07/19 Range/Units 07:25 07:30 07:30 WBC 13.84 H (4.0-11.0) K/uL RBC 4.76 (4.50-5.90) M/uL Hgb 14.5 (13.0-17.0) g/dL Hct 40.8 (38.0-50.0) % MCV 85.7 (80.0-98.0) fL MCH 30.5 (27.0-32.0) pg MCHC 35.5 (31.0-37.0) g/dL RDW Std Deviation 39.4 (28.0-62.0) fl RDW Coeff of Aisha 13 (11.0-15.0) % Plt Count 319 (150-400) K/uL MPV 9.60 (7.40-12.00) fL Neut % (Auto) 76.4 (48.0-80.0) % Lymph % (Auto) 11.6 L (16.0-40.0) % [place] % (Auto) 6.6 (0.0-15.0) % Eos % (Auto) 5.0 (0.0-7.0) % Baso % (Auto) 0.4 (0.0-1.5) % Neut # (Auto) 10.6 H (1.4-5.7) K/uL Lymph # (Auto) 1.6 (0.6-2.4) K/uL [place] # (Auto) 0.9 H (0.0-0.8) K/uL Eos # (Auto) 0.7 (0.0-0.7) K/uL Baso # (Auto) 0.1 (0.0-0.1) K/uL INR Sodium 140 (136-148) mmol/L Potassium 3.8 (3.5-5.1) mmol/L Chloride 102 (98-107) mmol/L Carbon Dioxide 30.0 (21.0-32.0) mmol/L BUN 20 H (7.0-18.0) mg/dL Creatinine 1.2 (0.8-1.3) mg/dL Est Cr Clr Drug Dosing 99.69 mL/min Estimated GFR (MDRD) > 60.0 ml/min Glucose 96 (74-106) mg/dL Calcium 9.6 (8.5-10.1) mg/dL Total Bilirubin 0.5 (0.2-1.0) mg/dL AST 24 (15-37) IU/L ALT 39 (14-63) IU/L Alkaline Phosphatase 103 (46-116) U/L Total Protein 8.1 (6.4-8.2) g/dL Albumin 3.7 (3.4-5.0) g/dL Globulin 4.4 H (2.6-4.0) g/dL Albumin/Globulin Ratio 0.8 L (0.9-1.6) Urine Color BROWN Urine Appearance CLOUDY Urine pH 6.0 (5.0-8.0) Ur Specific [place] 1.025 (1.001-1.035) Urine Protein 100 H (NEGATIVE) mg/dL Urine Glucose (UA) NEGATIVE (NEGATIVE) mg/dL Urine Ketones NEGATIVE (NEGATIVE) mg/dL Urine Occult Blood LARGE H (NEGATIVE) Urine Nitrite POSITIVE H (NEGATIVE) Urine Bilirubin MODERATE H (NEGATIVE) Urine Ictotest NEGATIVE Urine Urobilinogen 1.0 (<2.0) EU/dL Ur Leukocyte Esterase LARGE H (NEGATIVE) Urine RBC TOO NUMEROUS TO CT (0-2/HPF) Urine WBC 30-40 (0-5/HPF) Ur Epithelial Cells OCCASIONAL (NONE-FEW) Urine Bacteria 1+ H (NEGATIVE) 04/07/19 Range/Units 07:50 WBC (4.0-11.0) K/uL RBC (4.50-5.90) M/uL Hgb (13.0-17.0) g/dL Hct (38.0-50.0) % MCV (80.0-98.0) fL MCH (27.0-32.0) pg MCHC (31.0-37.0) g/dL RDW Std Deviation (28.0-62.0) fl RDW Coeff of Aisha (11.0-15.0) % Plt Count (150-400) K/uL MPV (7.40-12.00) fL Neut % (Auto) (48.0-80.0) % Lymph % (Auto) (16.0-40.0) % [place] % (Auto) (0.0-15.0) % Eos % (Auto) (0.0-7.0) % Baso % (Auto) (0.0-1.5) % Neut # (Auto) (1.4-5.7) K/uL Lymph # (Auto) (0.6-2.4) K/uL [place] # (Auto) (0.0-0.8) K/uL Eos # (Auto) (0.0-0.7) K/uL Baso # (Auto) (0.0-0.1) K/uL INR 0.98 Sodium (136-148) mmol/L Potassium (3.5-5.1) mmol/L Chloride (98-107) mmol/L Carbon Dioxide (21.0-32.0) mmol/L BUN (7.0-18.0) mg/dL Creatinine (0.8-1.3) mg/dL Est Cr Clr Drug Dosing mL/min Estimated GFR (MDRD) ml/min Glucose (74-106) mg/dL Calcium (8.5-10.1) mg/dL Total Bilirubin (0.2-1.0) mg/dL AST (15-37) IU/L ALT (14-63) IU/L Alkaline Phosphatase (46-116) U/L Total Protein (6.4-8.2) g/dL Albumin (3.4-5.0) g/dL Globulin (2.6-4.0) g/dL Albumin/Globulin Ratio (0.9-1.6) Urine Color Urine Appearance Urine pH (5.0-8.0) Ur Specific [place] (1.001-1.035) Urine Protein (NEGATIVE) mg/dL Urine Glucose (UA) (NEGATIVE) mg/dL Urine Ketones (NEGATIVE) mg/dL Urine Occult Blood (NEGATIVE) Urine Nitrite (NEGATIVE) Urine Bilirubin (NEGATIVE) Urine Ictotest Urine Urobilinogen (<2.0) EU/dL Ur Leukocyte Esterase (NEGATIVE) Urine RBC (0-2/HPF) Urine WBC (0-5/HPF) Ur Epithelial Cells (NONE-FEW) Urine Bacteria (NEGATIVE) Meds: Medications Discontinued Medications Generic Name Dose Route Start Last Admin Trade Name Freq PRN Reason Stop Dose Admin Levofloxacin/Dextrose 750 mg/ 150 mls @ 100 mls/hr 04/07/19 08:46 04/07/19 09 :16 Premix IV 04/07/19 10:15 100 mls/hr ONETIME ONE Administration Morphine Sulfate 4 mg 04/07/19 07:24 04/07/19 07:38 Morphine IVPUSH 04/07/19 07:25 4 mg ONETIME ONE Administration Morphine Sulfate 4 mg 04/07/19 08:46 04/07/19 09:20 Morphine IVPUSH 04/07/19 08:47 4 mg ONETIME ONE Administration Ondansetron HCl 4 mg 04/07/19 07:22 04/07/19 07:38 Zofran IVPUSH 04/07/19 07:23 4 mg ONETIME ONE Administration Departure - Departure Time of Disposition: 10:47 Disposition: Home, Self-Care 01 Clinical Impression: UTI, Urinary tract infectious disease - Discharge Information Prescriptions: Ciprofloxacin HCl [Cipro] 500 mg PO BID #20 tablet Instructions: Urinary Tract Infection, Adult, Antibiotic Medicine, Adult Referrals: Andi Holland MD [Primary Care Provider] - 2 Weeks ([facility] [place] - Urology [address] [place] [id number] ) Forms: ED Department Discharge Additional Instructions: If you have pain or fever, please take 1 or 2 500 mg extra strength Tylenol tablets every 6 hours as needed for up to 5 days. Do not take ibuprofen, Motrin , Advil, naproxen, or other drugs like that, because they are similar aspirin, and you stated that aspirin causes you to have a flareup of your asthma. The following information is given to patients seen in the emergency department who are being discharged to home. This information is to outline your options for follow-up care. We provide all patients seen in our emergency department with a follow-up referral. The need for follow-up, as well as the timing and circumstances, are variable depending upon the specifics of your emergency department visit. If you don't have a primary care physician on staff, we will provide you with a referral. We always advise you to contact your personal physician following an emergency department visit to inform them of the circumstance of the visit and for follow-up with them and/or the need for any referrals to a consulting specialist. The emergency department will also refer you to a specialist when appropriate. This referral assures that you have the opportunity for follow-up care with a specialist. All of these measure are taken in an effort to provide you with optimal care, which includes your follow-up. Under all circumstances we always encourage you to contact your private physician who remains a resource for coordinating your care. When calling for follow-up care, please make the office aware that this follow-up is from your recent emergency room visit. If for any reason you are refused follow-up, please contact the [facility] Emergency Department at and ask to speak to the emergency department charge nurse. Sepsis Event Note - Evaluation Sepsis Screening Result: No Definite Risk - Focused Exam Vital Signs: Vital Signs Temp Pulse Resp BP Pulse Ox 04/07/19 10:59 78 16 114/58 L 97 04/07/19 09:54 98.2 F 70 112/66 98 Date Exam was Performed: 04/07/19 Time Exam was Performed: 20:41 - My Orders Last 24 Hours: My Active Orders 04/07/19 10:48 Ready for Discharge [RC] PER UNIT ROUTINE - Assessment/Plan Last 24 Hours: My Active Orders 04/07/19 10:48 Ready for Discharge [RC] PER UNIT ROUTINE
[2019-04-07 08:15] LABS: BLOOD UREA NITROGEN,BUN 20 mg/dL (7.0-18.0); CHLORIDE,CL 102 mmol/L (98-107); GLUCOSE RANDOM 96 mg/dL (74-106); POTASSIUM,K 3.8 mmol/L (3.5-5.1); SODIUM,NA 140 mmol/L (136-148)
--- NOTE | 2019-04-07 08:33 | CT ---
CT abdomen and pelvis Technique: Multiple axial sections were obtained from above the dome of the diaphragm inferiorly through the pubic symphysis. Intravenous and oral contrast not utilized. Study has been performed as a ureteral stone protocol. Findings: Kidneys show no abnormal calcifications. No ureteral dilatation or ureteral calculus is seen. No bladder calcifications are seen. Other findings: Visualized lung bases show nothing acute. Liver contains no focal parenchymal abnormality. Spleen appears within normal limits. Gallbladder contains no calcified gallstones. Pancreas appears within normal limits. Aorta shows no aneurysm. No retroperitoneal adenopathy or mesenteric abnormalities are seen. No pelvic mass or adenopathy is noted. No free fluid or inflammatory change is appreciated. Appendix is visualized and is normal in size. Mild increased stool within the colon is noted. Bone window settings were reviewed. No acute osseous finding is seen. Impression: 1. No renal calculi, ureteral stone or ureteral dilatation is seen. 2. Mild increased within the colon. 3. Nothing acute is otherwise appreciated on noncontrast CT study of the abdomen and pelvis performed as a ureteral stone protocol. Diagnostic code #2 This report was dictated in [place] Standard Time
[2019-04-07] MEDS ORDERED: Levofloxacin/Dextrose 5%-Water 750 MG in Premix Bag 1 BAG IV ONE (08:46)
--- NOTE | 2019-04-07 10:30 | US ---
Testicular ultrasound: Multiple real-time images of the testicles were obtained. Doppler evaluation was also performed of both testicles. Testicles have a homogeneous ultrasound appearance. No intratesticular abnormality is seen. Both arterial and venous blood flow appear to be present. Small left-sided hydrocele is noted. Impression: 1. Small left-sided hydrocele. 2. No additional abnormality is noted on testicular ultrasound exam. Diagnostic code #2 This report was dictated in [place] Standard Time
[2019-04-07 11:00] VITALS: BP 114/58; PULSE 78
--- NOTE | 2019-04-07 11:35 | US ---
EXAM DATE: 04/07/19 PATIENT'S AGE: 28 Testicular ultrasound: Multiple real-time images of the testicles were obtained. Doppler evaluation was also performed of both testicles. Testicles have a homogeneous ultrasound appearance. No intratesticular abnormality is seen. Both arterial and venous blood flow appear to be present. Small left-sided hydrocele is noted. Impression: 1. Small left-sided hydrocele. 2. No additional abnormality is noted on testicular ultrasound exam. Diagnostic code #2 This report was dictated in [place] Standard Time Report Signed by Proxy. [facility]
== END 2019-04-07 11:00 | disposition home or self-care (01) ==
LOC: MW.ED 07:00
DX: N39.0 Urinary tract infection, site not specified (principal); J45.909 Unspecified asthma, uncomplicated; Z88.8 Allergy status to other drugs, medicaments and biological substances; Z79.899 Other long term (current) drug therapy
CPT/HCPCS: 36415; 74176; 76870; 80053; 81001; 85025; 85610; 93976; 96365; 96375; 96376; 99284; J1956; J2270; J2405

== ENCOUNTER 2019-04-14 10:27 | Emergency (ER) | payer BC ==
[2019-04-14] MEDS ORDERED: Sodium Chloride 0.9% 2.5 ML Syringe FLUSH PRN (10:29)
[2019-04-14] MEDS ORDERED: Sodium Chloride 0.9% 10 ML Syringe FLUSH PRN (10:29)
[2019-04-14] MEDS ORDERED: Sodium Chloride 0.9% 1,000 ML IV ONE (10:41)
[2019-04-14 11:02] LABS: BLOOD UREA NITROGEN,BUN 22 mg/dL (7.0-18.0); CARBON DIOXIDE,CO2 27.7 mmol/L (21.0-32.0); CHLORIDE,CL 101 mmol/L (98-107); GLUCOSE RANDOM 96 mg/dL (74-106); LIPASE 107 U/L (73-393); POTASSIUM,K 3.6 mmol/L (3.5-5.1); SODIUM,NA 139 mmol/L (136-148)
--- NOTE | 2019-04-14 11:13 | CR ---
Chest: Portable view of the chest was obtained. Study obtained utilizing portable technique. Comparison: Prior chest x-ray of 04/03/19. Heart size and mediastinum are normal. Lungs are clear. Bony structures are grossly intact. Impression: 1. Nothing acute is seen on portable chest x-ray. Diagnostic code #1 This report was dictated in [place] Standard Time
--- NOTE | 2019-04-14 12:15 | EDM.PDOC ---
ED HPI GENERAL MEDICAL PROBLEM - General Chief Complaint: Chest Pain Stated Complaint: CHEST PAIN Time Seen by Provider: 04/14/19 10:30 - History of Present Illness INITIAL COMMENTS - FREE TEXT/NARRATIVE: 28-year-old gentleman history of paroxysmal SVT, to the ER for chest tightness palpitations and syncope. He has had similar episodes in the past. Denies trauma. Very mild tightness in the chest. No shortness of breath no diaphoresis. No leg swelling. No hemoptysis. No cough. States that at times his iWatch detects heart rates that they increased to the 160s. These are short lasting and for the most part asymptomatic. told me has been here a few times for the same thing and that they never find anything. Duration: Minutes:, Improving Middle Chest Pain Score (Numeric/FACES): 3 - Related Data Allergies Allergy/AdvReac Type Severity Reaction Status Date / Time grass pollen Allergy Shortness Verified 04/14/19 10:33 of Breath pollen extracts Allergy Shortness Verified 04/14/19 10:33 of Breath aspirin Allergy Shortness Uncoded 04/14/19 10:33 of Breath Home Meds: Home Meds Albuterol Inhaler 1 puff INH ASDIRECTED 02/06/16 [History] Tiotropium [Spiriva] 18 mcg INH BID 04/15/18 [History] Brio Inhaler 1 dose INH DAILY 03/03/19 [History] Past Medical History - Past Health History Medical/Surgical History: Denies Medical/Surgical History HEENT History: Reports: Other (See Below) Other HEENT History: Nasal polyps Cardiovascular History: Reports: Other (See Below) Other Cardiovascular History: Palpitations Respiratory History: Reports: Asthma Gastrointestinal History: Reports: None Genitourinary History: Reports: None Musculoskeletal History: Reports: None Neurological History: Reports: None Psychiatric History: Reports: ADD, Anxiety Endocrine/Metabolic History: Reports: None Insulin Pump Model and Rectifying Attendant: None Hematologic History: Reports: None Immunologic History: Reports: None Oncologic (Cancer) History: Reports: None Dermatologic History: Reports: None - Infectious Disease History Infectious Disease History: Reports: None Other Infectious Disease History: chldhood - Past Surgical History Head Surgeries/Procedures: Reports: None HEENT Surgical History: Reports: Naso-Sinus Surgery Social & Family History - Family History Family Medical History: Noncontributory - Tobacco Use Smoking Status *Q: Current Every Day Smoker Years of Tobacco use: 0 Packs/Tins Daily: 0 - Caffeine Use Caffeine Use: Reports: Coffee - Recreational Drug Use Recreational Drug Use: No ED ROS GENERAL - Review of Systems Review Of Systems: See Below Constitutional: Reports: No Symptoms HEENT: Reports: No Symptoms Respiratory: Reports: No Symptoms Cardiovascular: Reports: Chest Pain Endocrine: Reports: No Symptoms GI/Abdominal: Reports: No Symptoms : Reports: No Symptoms Musculoskeletal: Reports: No Symptoms Skin: Reports: No Symptoms Neurological: Reports: No Symptoms Psychiatric: Reports: No Symptoms Hematologic/Lymphatic: Reports: No Symptoms Immunologic: Reports: No Symptoms ED EXAM, GENERAL - Physical Exam Exam: See Below Exam Limited By: No Limitations General Appearance: Alert, No Apparent Distress Eye Exam: Bilateral Eye: EOMI Ears: Normal External Exam Nose: Normal Inspection Head: Atraumatic Neck: Normal Inspection Respiratory/Chest: No Respiratory Distress, Lungs Clear, Normal Breath Sounds, No Accessory Muscle Use Cardiovascular: Normal Peripheral Pulses, Regular Rate, Rhythm, No Edema, No JVD Peripheral Pulses: 2+: Radial (L), Radial (R), Dorsalis Pedis (L), Dorsalis Pedis (R) GI/Abdominal: Soft, Non-Tender (Male) Exam: Deferred Rectal (Males) Exam: Deferred Extremities: Normal Inspection, Normal Range of Motion, Non-Tender, No Pedal Edema Neurological: Alert, Normal Cognition, Normal Gait Psychiatric: Normal Affect Skin Exam: Warm EKG INTERPRETATION Rhythm: NSR [place]: Normal QRS: Normal ST-T: Normal Comparison: No Change (early repol present in previous EKGs) Course - Vital Signs Last Recorded V/S: Last Vital Signs Temp 97.8 F 04/14/19 10:29 Pulse 75 04/14/19 12:36 Resp 14 04/14/19 12:36 BP 113/68 04/14/19 12:36 Pulse Ox 99 04/14/19 12:36 - Orders/Labs/Meds Orders: Active Orders 24 hr Category Date Time Status EKG Documentation Completion [RC] STAT Care 04/14/19 10:29 Active Sodium Chloride 0.9% [Saline Flush] Med 04/14/19 10:29 Active 10 ml FLUSH ASDIRECTED PRN Sodium Chloride 0.9% [Saline Flush] Med 04/14/19 10:29 Active 2.5 ml FLUSH ASDIRECTED PRN Saline Lock Insert [OM.PC] Stat Oth 04/14/19 10:29 Ordered Medication Orders Sodium Chloride (Saline Flush) 10 ml FLUSH ASDIRECTED PRN PRN Reason: Keep Vein Open Last Admin: 04/14/19 10:53 Dose: 10 ml Sodium Chloride (Saline Flush) 2.5 ml FLUSH ASDIRECTED PRN PRN Reason: Keep Vein Open Last Admin: 04/14/19 10:53 Dose: 2.5 ml Labs: Laboratory Tests 04/14/19 04/14/19 04/14/19 Range/Units 10:30 10:30 11:50 WBC 6.26 (4.0-11.0) K/uL RBC 4.48 L (4.50-5.90) M/uL Hgb 13.6 (13.0-17.0) g/dL Hct 39.5 (38.0-50.0) % MCV 88.2 (80.0-98.0) fL MCH 30.4 (27.0-32.0) pg MCHC 34.4 (31.0-37.0) g/dL RDW Std Deviation 42.4 (28.0-62.0) fl RDW Coeff of Aisha 13 (11.0-15.0) % Plt Count 358 (150-400) K/uL MPV 9.80 (7.40-12.00) fL Neut % (Auto) 38.4 L (48.0-80.0) % Lymph % (Auto) 34.5 (16.0-40.0) % [place] % (Auto) 10.2 (0.0-15.0) % Eos % (Auto) 15.5 H (0.0-7.0) % Baso % (Auto) 1.4 (0.0-1.5) % Neut # (Auto) 2.4 (1.4-5.7) K/uL Lymph # (Auto) 2.2 (0.6-2.4) K/uL [place]ell # (Auto) 0.6 (0.0-0.8) K/uL Eos # (Auto) 1.0 H (0.0-0.7) K/uL Baso # (Auto) 0.1 (0.0-0.1) K/uL Nucleated RBC % 0.0 /100WBC Nucleated RBCs # 0 K/uL Sodium 139 (136-148) mmol/L Potassium 3.6 (3.5-5.1) mmol/L Chloride 101 (98-107) mmol/L Carbon Dioxide 27.7 (21.0-32.0) mmol/L BUN 22 H (7.0-18.0) mg/dL Creatinine 1.2 (0.8-1.3) mg/dL Est Cr Clr Drug Dosing 99.69 mL/min Estimated GFR (MDRD) > 60.0 ml/min Glucose 96 (74-106) mg/dL Calcium 9.2 (8.5-10.1) mg/dL Total Bilirubin 0.2 (0.2-1.0) mg/dL AST 27 (15-37) IU/L ALT 41 (14-63) IU/L Alkaline Phosphatase 102 (46-116) U/L Troponin I < 0.050 (0.000-0.056) ng/mL Total Protein 7.8 (6.4-8.2) g/dL Albumin 3.6 (3.4-5.0) g/dL Globulin 4.2 H (2.6-4.0) g/dL Albumin/Globulin Ratio 0.9 (0.9-1.6) Lipase 107 (73-393) U/L Urine Color YELLOW Urine Appearance CLEAR Urine pH 6.0 (5.0-8.0) Ur Specific [place] <= 1.005 (1.001-1.035) Urine Protein NEGATIVE (NEGATIVE) mg/dL Urine Glucose (UA) NEGATIVE (NEGATIVE) mg/dL Urine Ketones NEGATIVE (NEGATIVE) mg/dL Urine Occult Blood NEGATIVE (NEGATIVE) Urine Nitrite NEGATIVE (NEGATIVE) Urine Bilirubin NEGATIVE (NEGATIVE) Urine Urobilinogen 0.2 (<2.0) EU/dL Ur Leukocyte Esterase NEGATIVE (NEGATIVE) Meds: Medications Generic Name Dose Route Start Last Admin Trade Name Freq PRN Reason Stop Dose Admin Sodium Chloride 10 ml 04/14/19 10:04/14/19 10:53 Saline Flush FLUSH 10 ml ASDIRECTED PRN Administration Keep Vein Open Sodium Chloride 2.5 ml 04/14/19 10:04/14/19 10:53 Saline Flush FLUSH 2.5 ml ASDIRECTED PRN Administration Keep Vein Open Discontinued Medications Generic Name Dose Route Start Last Admin Trade Name Gavin PRN Reason Stop Dose Admin Sodium Chloride 1,000 mls @ 999 mls/hr 04/14/19 10:41 04/14/19 10:53 Normal Saline IV 04/14/19 11:41 999 mls/hr .BOLUS ONE Administration - Re-Assessments/Exams Free Text/Narrative Re-Assessment/Exam: 04/14/19 12:55 Heart rate was reassessed multiple times sinus on the monitor. First troponin was negative. He has had a stress test in the past has had echocardiograms in the past and he has had telemetry which were all nonrevealing. Plan was to monitor in the ER and do serial troponins and reassess the patient. Patient wished to be discharged AGAINST MEDICAL ADVICE told me he is going to follow-up with a art glass designer next Sunday. Planed to him how troponins become more accurate after time, and that the plan was to monitor for any signs of arrhythmia. He understood the risks of leaving AGAINST MEDICAL ADVICE and return precautions were given to the patient. He does not have any significant cardiac risk factors. 04/14/19 12:58 Departure - Departure Time of Disposition: 12:58 Disposition: Against Medical Advice 07 Clinical Impression: Syncope Referrals: PCP,Unobtain [Primary Care Provider] - Forms: ED Department Discharge Care Plan Goals: Follow-up with cardiology. Turn to ED if you develop new symptoms or wish to continue the work-up. The following information is given to patients seen in the emergency department who are being discharged to home. This information is to outline your options for follow-up care. We provide all patients seen in our emergency department with a follow-up referral. The need for follow-up, as well as the timing and circumstances, are variable depending upon the specifics of your emergency department visit. If you don't have a primary care physician on staff, we will provide you with a referral. We always advise you to contact your personal physician following an emergency department visit to inform them of the circumstance of the visit and for follow-up with them and/or the need for any referrals to a consulting specialist. The emergency department will also refer you to a specialist when appropriate. This referral assures that you have the opportunity for follow-up care with a specialist. All of these measure are taken in an effort to provide you with optimal care, which includes your follow-up. Under all circumstances we always encourage you to contact your private physician who remains a resource for coordinating your care. When calling for follow-up care, please make the office aware that this follow-up is from your recent emergency room visit. If for any reason you are refused follow-up, please contact the [facility] Emergency Department at and asked to speak to the emergency department charge nurse. Sepsis Event Note - Evaluation Sepsis Screening Result: No Definite Risk - Focused Exam Vital Signs: Vital Signs Temp Pulse Resp BP Pulse Ox 04/14/19 12:36 75 14 113/68 99 04/14/19 12:03 80 14 121/73 96 04/14/19 11:32 78 15 124/75 98 04/14/19 10:54 78 15 118/70 98 04/14/19 10:29 97.8 F 84 15 129/81 95 Date Exam was Performed: 04/14/19 Time Exam was Performed: 12:58
[2019-04-14 13:06] VITALS: BP 121/72; PULSE 89
== END 2019-04-14 13:08 | disposition left against medical advice (07) ==
LOC: MW.ED 10:27
DX: R55 Syncope and collapse (principal); F17.210 Nicotine dependence, cigarettes, uncomplicated; Z88.6 Allergy status to analgesic agent; Z91.048 Other nonmedicinal substance allergy status
CPT/HCPCS: 71045; 80053; 81003; 83690; 84484; 85025; 93005; 96360; 99285; J7030; 99284

== ENCOUNTER 2019-09-14 14:19 | Emergency (ER) | payer BC ==
[2019-09-14 14:44] VITALS: BP 116/81; PULSE 102
[2019-09-14] MEDS ORDERED: Sodium Chloride 0.9% 10 ML Syringe FLUSH PRN (15:10)
[2019-09-14] MEDS ORDERED: Sodium Chloride 0.9% 2.5 ML Syringe FLUSH PRN (15:10)
[2019-09-14] MEDS ORDERED: Prochlorperazine 10 MG/2 ML SDV IVPUSH ONE (15:11)
--- NOTE | 2019-09-14 15:21 | EDM.PDOC ---
ED HPI GENERAL MEDICAL PROBLEM - General Chief Complaint: Headache Stated Complaint: PAIN IN HEAD, CONFUSED, LIGHT SENSITIVITY Time Seen by Provider: 09/14/19 14:28 Source of Information: Reports: Patient, Old Records History Limitations: Reports: No Limitations - History of Present Illness INITIAL COMMENTS - FREE TEXT/NARRATIVE: 28-year-old male with past medical history of asthma, nasal polyps, ADHD presenting with a headache. Patient reports a 3-day history of a coronal type headache, which is unusual for him. The headache initially started after he was sneezing. Patient states that since then, whenever he takes his prescribed Adderall, the headache returns and has been increasingly severe. Lasts for several hours at a time, accompanied by some visual disturbance in the form of photophobia, globally blurry vision, and difficulty discerning colors. Denies any blind spots. No history of head trauma, fever, nausea, vomiting. Headache Pain Score (Numeric/FACES): 8 - Related Data Allergies Allergy/AdvReac Type Severity Reaction Status Date / Time grass pollen Allergy Shortness Verified 09/14/19 14:36 of Breath pollen extracts Allergy Shortness Verified 09/14/19 14:36 of Breath aspirin Allergy Shortness Uncoded 09/14/19 14:36 of Breath Home Meds: Home Meds Dextroamphetamine/Amphetamine [Adderall] 30 mg PO BID 09/14/19 [History] Past Medical History - Past Health History Medical/Surgical History: Denies Medical/Surgical History HEENT History: Reports: Other (See Below) Other HEENT History: Nasal polyps Cardiovascular History: Reports: Other (See Below) Other Cardiovascular History: Palpitations Respiratory History: Reports: Asthma Gastrointestinal History: Reports: None Genitourinary History: Reports: None Musculoskeletal History: Reports: None Neurological History: Reports: None Psychiatric History: Reports: ADD, Anxiety Endocrine/Metabolic History: Reports: None Insulin Pump Model and Spice Grinder: None Hematologic History: Reports: None Immunologic History: Reports: None Oncologic (Cancer) History: Reports: None Dermatologic History: Reports: None - Infectious Disease History Infectious Disease History: Reports: None Other Infectious Disease History: chldhood - Past Surgical History Head Surgeries/Procedures: Reports: None HEENT Surgical History: Reports: Naso-Sinus Surgery Social & Family History - Family History Family Medical History: Noncontributory - Caffeine Use Caffeine Use: Reports: Coffee ED ROS GENERAL - Review of Systems Review Of Systems: See Below Constitutional: Denies: Fever, Chills HEENT: Reports: Vision Change. Denies: Ear Discharge, Eye Discharge, Eye Pain Respiratory: Denies: Shortness of Breath Cardiovascular: Denies: Chest Pain Endocrine: Reports: No Symptoms GI/Abdominal: Denies: Abdominal Pain, Nausea, Vomiting : Denies: Flank Pain Musculoskeletal: Denies: Neck Pain Skin: Denies: Rash Neurological: Reports: Headache. Denies: Dizziness, Numbness, Paresthesia, Seizure, Tingling, Trouble Speaking, Difficulty Walking, Weakness, Change in Speech, Gait Disturbance - Physical Exam Exam: See Below Text/Narrative:: Vital signs reviewed. Nursing notes reviewed. Constitutional: Awake, alert, non-distressed. Head: Normocephalic, atraumatic. No temporal artery tenderness Eyes: EOMI, conjunctiva normal, no discharge, no scleral icterus. Pupils 3 mm bilaterally Neck: Supple, full range of motion Ears, Nose, Throat: External ears and nose normal, moist oral mucosa. TMs clear bilaterally Cardiovascular: 2+ radial pulse, capillary refill less than 2 seconds. Pulmonary: normal work of breathing, no accessory muscle use. Abdomen/GI: Soft, nontender, nondistended, no guarding or rigidity, no masses. Musculoskeletal: No deformities. Integumentary: Appropriate color for ethnicity, warm, dry, no pallor or jaundice, no rash. Neurologic: Awake, alert, and oriented x3. Cranial nerves II through XII intact. No facial droop or dysarthria. No temporal artery tenderness. Supple neck with normal range of motion. No pronator drift. Normal afzxct-ihmw-lxeweg and obmd-si-cilp. No dysdiadochokinesia. 5/5 strength in all extremities. Sensation intact to light touch x4. Negative Romberg. Normal gait. Normal visual aldridge, no field cuts. Able to sit, stand, and ambulate without assistance. Psychiatric: Appropriate mood and affect, normal thought process. Course - Vital Signs Text/Narrative:: Patient hemodynamically stable, afebrile, well-appearing, looks nontoxic. Differential diagnosis includes but is not limited to: meningitis, encephalitis, subarachnoid hemorrhage, subdural hematoma, epidural hematoma, carotid artery dissection, hypertensive encephalopathy, temporal arteritis, acute glaucoma, head injury, migraine, tension headache, cluster headache, sinusitis, pseudotumor cerebri, and many others. At the time of the patient left AMA, the only tests that had resulted were the CBC, which looks reassuring. 3:33 PM: I was advised by the patient's nurse that the patient wants to sign out of the emergency department AGAINST MEDICAL ADVICE. I went to speak with him myself. He states that he is feeling more nauseated and he wants to go home immediately. I offered to order different medications to address his nausea and try to get him feeling better, but he states he wants to leave immediately. He is alert and oriented to person, place, time, and event. He is able to engage in a calm, rational conversation. I did reiterate the risk of foregoing the work-up including CT imaging. I explained that we could be potentially missing a life-threatening cause of his headache including a subarachnoid hemorrhage, tumor, etc. The patient understands that by signing out AMA he could potentially decline in clinical condition or even . I explained to him that the patient could return at any point if he changed his mind even if he was not feeling worse. Patient signed the discharge AMA form, witnessed by both the nurse and myself. Last Recorded V/S: Last Vital Signs Temp 36.8 C 09/14/19 14:39 Pulse 102 H 09/14/19 14:39 Resp 18 09/14/19 14:39 BP 116/81 09/14/19 14:39 Pulse Ox 98 09/14/19 14:39 - Orders/Labs/Meds Orders: Active Orders 24 hr Category Date Time Status Pulse Oximetry [RC] ASDIRECTED Care 09/14/19 15:10 Active Ang Head [CT] Stat Exams 09/14/19 15:10 Ordered Ang Neck [CT] Stat Exams 09/14/19 15:10 Ordered BASIC METABOLIC PANEL,BMP [CHEM] Stat Lab 09/14/19 15:21 Received Sodium Chloride 0.9% [Saline Flush] Med 09/14/19 15:10 Active 10 ml FLUSH ASDIRECTED PRN Sodium Chloride 0.9% [Saline Flush] Med 09/14/19 15:10 Active 2.5 ml FLUSH ASDIRECTED PRN Saline Lock Insert [OM.PC] Stat Oth 09/14/19 15:10 Ordered Medication Orders Sodium Chloride (Saline Flush) 10 ml FLUSH ASDIRECTED PRN PRN Reason: Keep Vein Open Last Admin: 09/14/19 15:17 Dose: 10 ml Documented by: RENETTA Sodium Chloride (Saline Flush) 2.5 ml FLUSH ASDIRECTED PRN PRN Reason: Keep Vein Open Last Admin: 09/14/19 15:17 Dose: 2.5 ml Documented by: RENETTA Labs: Laboratory Tests 09/14/19 Range/Units 15:21 WBC 5.29 (4.0-11.0) K/uL RBC 4.82 (4.50-5.90) M/uL Hgb 14.9 (13.0-17.0) g/dL Hct 43.5 (38.0-50.0) % MCV 90.2 (80.0-98.0) fL MCH 30.9 (27.0-32.0) pg MCHC 34.3 (31.0-37.0) g/dL RDW Std Deviation 42.9 (28.0-62.0) fl RDW Coeff of Aisha 13 (11.0-15.0) % Plt Count 298 (150-400) K/uL MPV 10.00 (7.40-12.00) fL Neut % (Auto) 49.9 (48.0-80.0) % Lymph % (Auto) 27.0 (16.0-40.0) % [place] % (Auto) 9.8 (0.0-15.0) % Eos % (Auto) 12.7 H (0.0-7.0) % Baso % (Auto) 0.6 (0.0-1.5) % Neut # (Auto) 2.6 (1.4-5.7) K/uL Lymph # (Auto) 1.4 (0.6-2.4) K/uL [place] # (Auto) 0.5 (0.0-0.8) K/uL Eos # (Auto) 0.7 (0.0-0.7) K/uL Baso # (Auto) 0.0 (0.0-0.1) K/uL Nucleated RBC % 0.0 /100WBC Nucleated RBCs # 0 K/uL Meds: Medications Generic Name Dose Route Start Last Admin Trade Name Freq PRN Reason Stop Dose Admin Sodium Chloride 10 ml 09/14/19 15:10 09/14/19 15:17 Saline Flush FLUSH 10 ml ASDIRECTED PRN Administration Keep Vein Open Sodium Chloride 2.5 ml 09/14/19 15:10 09/14/19 15:17 Saline Flush FLUSH 2.5 ml ASDIRECTED PRN Administration Keep Vein Open Discontinued Medications Generic Name Dose Route Start Last Admin Trade Name Freq PRN Reason Stop Dose Admin Prochlorperazine Edisylate 10 mg 09/14/19 15:11 09/14/19 15:17 Compazine IVPUSH 09/14/19 15:12 10 mg ONETIME ONE Administration Departure - Departure Time of Disposition: 15:36 Disposition: Against Medical Advice 07 Clinical Impression: Headache Qualifiers: Headache type: other headache syndrome Qualified Code(s): G44.89 - Other headache syndrome - Discharge Information Referrals: Andi Holland MD [Primary Care Provider] - Forms: ED Department Discharge Sepsis Event Note (ED) - Evaluation Sepsis Screening Result: No Definite Risk - Focused Exam Vital Signs: Vital Signs Temp Pulse Resp BP Pulse Ox 09/14/19 14:39 36.8 C 102 H 18 116/81 98 - My Orders Last 24 Hours: My Active Orders 09/14/19 15:10 Pulse Oximetry [RC] ASDIRECTED Ang Head [CT] Stat Ang Neck [CT] Stat Sodium Chloride 0.9% [Saline Flush] 10 ml FLUSH ASDIRECTED PRN Sodium Chloride 0.9% [Saline Flush] 2.5 ml FLUSH ASDIRECTED PRN Saline Lock Insert [OM.PC] Stat 09/14/19 15:21 BASIC METABOLIC PANEL,BMP [CHEM] Stat - Assessment/Plan Last 24 Hours: My Active Orders 09/14/19 15:10 Pulse Oximetry [RC] ASDIRECTED Ang Head [CT] Stat Ang Neck [CT] Stat Sodium Chloride 0.9% [Saline Flush] 10 ml FLUSH ASDIRECTED PRN Sodium Chloride 0.9% [Saline Flush] 2.5 ml FLUSH ASDIRECTED PRN Saline Lock Insert [OM.PC] Stat 09/14/19 15:21 BASIC METABOLIC PANEL,BMP [CHEM] Stat
[2019-09-14 15:45] LABS: BLOOD UREA NITROGEN,BUN 14 mg/dL (7.0-18.0); CARBON DIOXIDE,CO2 28.4 mmol/L (21.0-32.0); CHLORIDE,CL 100 mmol/L (98-107); GLUCOSE RANDOM 96 mg/dL (74-106); POTASSIUM,K 3.6 mmol/L (3.5-5.1); SODIUM,NA 138 mmol/L (136-148)
== END 2019-09-14 15:33 | disposition left against medical advice (07) ==
LOC: MW.ED 14:19
DX: G44.89 Other headache syndrome (principal); Z88.6 Allergy status to analgesic agent; Z91.09 Other allergy status, other than to drugs and biological substances; Z79.899 Other long term (current) drug therapy; Z98.890 Other specified postprocedural states
CPT/HCPCS: 36415; 80048; 85025; 96374; 99284; J0780; 99283

== ENCOUNTER 2019-10-02 16:17 | Emergency (ER) | payer BC ==
[2019-10-02] MEDS ORDERED: Sodium Chloride 0.9% 2.5 ML Syringe FLUSH PRN (16:28)
[2019-10-02] MEDS ORDERED: Sodium Chloride 0.9% 10 ML SDV IV PRN (16:28)
[2019-10-02] MEDS ORDERED: Sodium Chloride 0.9% 500 ML IV SCH (16:30)
--- NOTE | 2019-10-02 16:36 | EDM.PDOC ---
ED HPI GENERAL MEDICAL PROBLEM - General Chief Complaint: General Stated Complaint: numbness left side of face Time Seen by Provider: 10/02/19 16:25 Source of Information: Reports: Patient - History of Present Illness INITIAL COMMENTS - FREE TEXT/NARRATIVE: History of present illness: 28-year-old male presenting with right-sided facial numbness and pressure sensation in forehead, intermittently ongoing for the last few days, worsened throughout the day today but comes and goes. Also reports some right-sided chest discomfort. Does occasionally feel dizzy and weak. He does report that almost 2 months ago he started a new injection medication for nasal polyps that he injects every 2 weeks. No difficulty breathing. He does report he is somewhat shaky. He does also report that he has some difficulty with his memory recently over the last few days and some difficulty getting his thoughts fully out in a complete sentence. No prior history of the same. Review of systems: As per history of present illness and below otherwise all systems reviewed and negative. Past medical history: As per history of present illness and as reviewed below otherwise noncontributory. Nasal polyp Surgical history: As per history of present illness and as reviewed below otherwise noncontributory. Nasal polyp removal Social history: No reported history of drug or alcohol abuse. Vape tobacco Family history: Patient does not know much of his family history as he only knows his father Physical exam: GEN: no acute distress, well appearing HEENT: Atraumatic, normocephalic, mucous membranes moist, mildly and equal size of the right versus left eye, left eye appears more open. Neck: supple, nontender, trachea midline. Lungs: No respiratory distress. Heart: RRR Extremities: Atraumatic. Neurovascularly intact. Neuro: Awake, alert, oriented. Mild numbness over the right side of face. No sensory deficit over arms or legs. Patient does have a mild decreased movement of the forehead muscles on the right side. No significant facial droop seen. During examination he does occasionally appear to have slightly more closed right eye than left but then is able to open eyes and the irregularity corrects. 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 No weakness or numbness of the arms or legs. No ataxia. Patient was able to ambulate into the emergency department after arriving via private vehicle. Does appear to have mild tremor with both hands when talking to me. Discussed this with patient, he reports this is new. Skin: warm, dry, no lesions Psych: Appears anxious Diagnostics: CT scans, labs, fingerstick glucose 98 Therapeutics: [] MDM: Impression: [] Plan: [] Definitive disposition and diagnosis as appropriate pending reevaluation and review of above. Headache Pain Score (Numeric/FACES): 7 - Related Data Allergies Allergy/AdvReac Type Severity Reaction Status Date / Time grass pollen Allergy Shortness Verified 10/02/19 16:46 of Breath pollen extracts Allergy Shortness Verified 10/02/19 16:46 of Breath aspirin Allergy Shortness Uncoded 09/14/19 14:36 of Breath Home Meds: Home Meds Dextroamphetamine/Amphetamine [Adderall] 30 mg PO BID 09/14/19 [History] Dupilumab [Dupixent] 300 mg IM ASDIRECTED 10/02/19 [History] Tiotropium [Spiriva HandiHaler] 1 inh INH DAILY 10/02/19 [History] Past Medical History - Past Health History Medical/Surgical History: Denies Medical/Surgical History HEENT History: Reports: Other (See Below) Other HEENT History: Nasal polyps Cardiovascular History: Reports: Other (See Below) Other Cardiovascular History: Palpitations Respiratory History: Reports: Asthma Gastrointestinal History: Reports: None Genitourinary History: Reports: None Musculoskeletal History: Reports: None Neurological History: Reports: None Psychiatric History: Reports: ADD, Anxiety Endocrine/Metabolic History: Reports: None 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: None Hematologic History: Reports: None Immunologic History: Reports: None Oncologic (Cancer) History: Reports: None Dermatologic History: Reports: None - Infectious Disease History Infectious Disease History: Reports: None Other Infectious Disease History: chldhood - Past Surgical History Head Surgeries/Procedures: Reports: None HEENT Surgical History: Reports: Naso-Sinus Surgery Social & Family History - Family History Family Medical History: Noncontributory - Caffeine Use Caffeine Use: Reports: Coffee ED ROS GENERAL - Review of Systems Review Of Systems: See Below (See HPI) ED EXAM, GENERAL - Physical Exam Exam: See Below (See HPI) Course - Vital Signs Text/Narrative:: Patient with facial numbness and pressure sensation in the face/forehead/head. Did have very mild right forehead paralysis that did resolve while in the emergency department. Also appeared very anxious and shaky. Glucose was normal. Labs were unremarkable. CT brain showed no acute findings. The symptoms resolved quickly upon arrival here. As the patient's symptoms had rapid and complete resolution, he was not a TPA candidate. Discussed with patient differential diagnosis/possibility of TIA versus complex migraine. Recommended admission, which the patient declined after a clear risk versus benefit discussion. Prior record review shows the patient does have a history of substance abuse and [place]. Also prior records show that 3 weeks ago the patient was seen in this emergency department for very similar type symptoms though without the facial numbness reported. Apparently he left AMA before work-up was fully completed. Last Recorded V/S: Last Vital Signs Temp 98.3 F 10/02/19 16:20 Pulse 73 10/02/19 16:28 Resp 21 H 10/02/19 16:28 BP 119/76 10/02/19 16:28 Pulse Ox 99 10/02/19 16:28 - Orders/Labs/Meds Orders: Active Orders 24 hr Category Date Time Status Assess Neurological Status [RC] CONTINUOUS Care 10/02/19 16:28 Active Blood Glucose Check, Bedside [RC] STAT Care 10/02/19 16:28 Active Cardiac Monitoring [RC] CONTINUOUS Care 10/02/19 16:28 Active Communication Order [RC] STAT Care 10/02/19 16:28 Active Height and Weight [RC] UPON Care 10/02/19 16:28 Active NIH Stroke Scale [RC] Q15M Care 10/02/19 16:28 Active NIH Stroke Scale [RC] STAT Care 10/02/19 16:28 Active Nursing Bedside Swallow Screen [RC] STAT Care 10/02/19 16:28 Active Oxygen Therapy, ED [RC] ASDIRECTED Care 10/02/19 16:28 Active Vital Signs [RC] Q15M Care 10/02/19 16:28 Active Sodium Chloride 0.9% [Normal Saline] Med 10/02/19 16:28 Active 10 ml IV ASDIRECTED PRN Sodium Chloride 0.9% [Normal Saline] 500 ml Med 10/02/19 16:30 Active IV BOLUS Sodium Chloride 0.9% [Saline Flush] Med 10/02/19 16:28 Active 10 ml FLUSH ASDIRECTED PRN Sodium Chloride 0.9% [Saline Flush] Med 10/02/19 16:28 Active 2.5 ml FLUSH ASDIRECTED PRN Peripheral IV Insertion Adult [OM.PC] Stat Oth 10/02/19 16:28 Ordered Peripheral IV Insertion Adult [OM.PC] Stat Ot 10/02/19 16:28 Ordered Resuscitation Status Stat Resus Stat 10/02/19 16:28 Ordered Medication Orders Sodium Chloride (Normal Saline) 500 mls @ 999 mls/hr IV BOLUS SHELBY Last Admin: 10/02/19 17:02 Dose: 999 mls/hr Documented by: JERI Sodium Chloride (Saline Flush) 10 ml FLUSH ASDIRECTED PRN PRN Reason: Keep Vein Open Last Admin: 10/02/19 17:04 Dose: 10 ml Documented by: Admin: 10/02/19 17:03 Dose: 10 ml Documented by: JERI Sodium Chloride (Saline Flush) 2.5 ml FLUSH ASDIRECTED PRN PRN Reason: Keep Vein Open Last Admin: 10/02/19 17:03 Dose: 2.5 ml Documented by: JERI Sodium Chloride (Normal Saline) 10 ml IV ASDIRECTED PRN PRN Reason: IV Use Labs: Laboratory Tests 10/02/19 10/02/19 10/02/19 Range/Units 16:26 16:26 16:26 WBC 7.20 (4.0-11.0) K/uL RBC 3.98 L (4.50-5.90) M/uL Hgb 12.5 L (13.0-17.0) g/dL Hct 36.2 L (38.0-50.0) % MCV 91.0 (80.0-98.0) fL MCH 31.4 (27.0-32.0) pg MCHC 34.5 (31.0-37.0) g/dL RDW Std Deviation 39.9 (28.0-62.0) fl RDW Coeff of Aisha 12 (11.0-15.0) % Plt Count 319 (150-400) K/uL MPV 10.50 (7.40-12.00) fL Neut % (Auto) 42.5 L (48.0-80.0) % Lymph % (Auto) 34.9 (16.0-40.0) % [place] % (Auto) 7.9 (0.0-15.0) % Eos % (Auto) 13.6 H (0.0-7.0) % Baso % (Auto) 1.1 (0.0-1.5) % Neut # (Auto) 3.1 (1.4-5.7) K/uL Lymph # (Auto) 2.5 H (0.6-2.4) K/uL [place] # (Auto) 0.6 (0.0-0.8) K/uL Eos # (Auto) 1.0 H (0.0-0.7) K/uL Baso # (Auto) 0.1 (0.0-0.1) K/uL INR 0.96 APTT 27.6 (18.6-31.3) SEC Sodium 136 (136-148) mmol/L Potassium 3.7 (3.5-5.1) mmol/L Chloride 99 (98-107) mmol/L Carbon Dioxide 26.5 (21.0-32.0) mmol/L BUN 18 (7.0-18.0) mg/dL Creatinine 1.2 (0.8-1.3) mg/dL Est Cr Clr Drug Dosing 99.69 mL/min Estimated GFR (MDRD) > 60.0 ml/min Glucose 97 (74-106) mg/dL Calcium 8.8 (8.5-10.1) mg/dL Total Bilirubin 0.2 (0.2-1.0) mg/dL AST 28 (15-37) IU/L ALT 55 (14-63) IU/L Alkaline Phosphatase 103 (46-116) U/L Troponin I < 0.050 (0.000-0.056) ng/mL Total Protein 8.0 (6.4-8.2) g/dL Albumin 4.1 (3.4-5.0) g/dL Globulin 3.9 (2.6-4.0) g/dL Albumin/Globulin Ratio 1.1 (0.9-1.6) Meds: Medications Generic Name Dose Route Start Last Admin Trade Name Freq PRN Reason Stop Dose Admin Sodium Chloride 500 mls @ 999 mls/hr 10/02/19 16:30 10/02/19 17:02 Normal Saline IV 999 mls/hr BOLUS SHELBY Administration Sodium Chloride 10 ml 08/13/20 16:28 10/02/19 17:04 Saline Flush FLUSH 10 ml ASDIRECTED PRN Administration Keep Vein Open Sodium Chloride 2.5 ml 10/02/19 16:28 10/02/19 17:03 Saline Flush FLUSH 2.5 ml ASDIRECTED PRN Administration Keep Vein Open Sodium Chloride 10 ml 10/02/19 16:28 Normal Saline IV ASDIRECTED PRN IV Use - Re-Assessments/Exams Free Text/Narrative Re-Assessment/Exam: 10/02/19 17:18 I reassessed the patient. He is resting comfortably and in no acute distress. He reports his symptoms are now much improved. The numbness has completely resolved and his only reported complaint now is pressure/fullness feeling in his right forehead. Repeat NIH stroke scale is now 0. Patient has normal forehead wrinkling, no facial droop. The patient's rapidly resolving symptoms stroke scale of 0 make TPA not indicated in this patient. 10/02/19 17:59 Reassessed the patient. He reports that he is feeling much better and is asymptomatic at this time. I discussed with the patient my recommendation for admission to the hospital for further work-up including possible MRI or neurology consult or both and the possibility of TIA versus complex migraine versus cluster headache since his symptoms are completely resolved now after O2 administration. The patient does not want to be admitted or placed under observation for any reason. I did discuss with the patient the risk versus benefits of departure. He voiced understanding of the risks but still does not want to be staying in the hospital overnight. I did discuss with the patient that he would need to sign AGAINST MEDICAL ADVICE paperwork. He agrees to do so. Did discuss the need for close follow-up with his primary care physician Dr. Holland, and will also refer for neurology follow-up. He agrees to do so and call both tomorrow morning for appointment AYLEEN. He does report that he has been decreasing his Adderall dose lately, trying to slowly taper himself off, however I do not feel that this would necessarily cause these symptoms. Departure - Departure Time of Disposition: 18:05 Disposition: Against Medical Advice 07 Clinical Impression: Right facial numbness, TIA (transient ischemic attack) - Discharge Information Instructions: Paresthesia Referrals: Andi Holland MD [Ordering Only Provider] - 1 Day Carol Smith MD [Physician] - 1 Day Forms: ED Department Discharge Additional Instructions: It is unclear what caused your symptoms. You may have had a TIA (transient ischemic attack) versus complex migraine. You need to have further work-up. As we discussed, I did recommend that you stay in the hospital overnight for further monitoring, additional testing and possible neurology consult. However you have declined. Therefore you must follow-up with your primary care physician as soon as possible for outpatient MRI and neurology evaluation. I have also given you the name of the local neurologist. Please call their office in the morning as soon as possible. Return to the emergency department immediately if you develop any of the similar symptoms again. Sepsis Event Note (ED) - Focused Exam Vital Signs: Vital Signs Temp Pulse Resp BP Pulse Ox Pulse Ox 10/02/19 16:28 73 21 H 119/76 99 99 10/02/19 16:20 98.3 F 91 20 128/78 97 - My Orders Last 24 Hours: My Active Orders 10/02/19 16:28 Assess Neurological Status [RC] CONTINUOUS Blood Glucose Check, Bedside [RC] STAT Cardiac Monitoring [RC] CONTINUOUS Communication Order [RC] STAT Height and Weight [RC] UPON NIH Stroke Scale [RC] Q15M NIH Stroke Scale [RC] STAT Nursing Bedside Swallow Screen [RC] STAT Oxygen Therapy, ED [RC] ASDIRECTED Vital Signs [RC] Q15M Sodium Chloride 0.9% [Normal Saline] 10 ml IV ASDIRECTED PRN Sodium Chloride 0.9% [Saline Flush] 10 ml FLUSH ASDIRECTED PRN Sodium Chloride 0.9% [Saline Flush] 2.5 ml FLUSH ASDIRECTED PRN Peripheral IV Insertion Adult [OM.PC] Stat Peripheral IV Insertion Adult [OM.PC] Stat Resuscitation Status Stat 10/02/19 16:30 Sodium Chloride 0.9% [Normal Saline] 500 ml IV BOLUS - Assessment/Plan Last 24 Hours: My Active Orders 10/02/19 16:28 Assess Neurological Status [RC] CONTINUOUS Blood Glucose Check, Bedside [RC] STAT Cardiac Monitoring [RC] CONTINUOUS Communication Order [RC] STAT Height and Weight [RC] UPON NIH Stroke Scale [RC] Q15M NIH Stroke Scale [RC] STAT Nursing Bedside Swallow Screen [RC] STAT Oxygen Therapy, ED [RC] ASDIRECTED Vital Signs [RC] Q15M Sodium Chloride 0.9% [Normal Saline] 10 ml IV ASDIRECTED PRN Sodium Chloride 0.9% [Saline Flush] 10 ml FLUSH ASDIRECTED PRN Sodium Chloride 0.9% [Saline Flush] 2.5 ml FLUSH ASDIRECTED PRN Peripheral IV Insertion Adult [OM.PC] Stat Peripheral IV Insertion Adult [OM.PC] Stat Resuscitation Status Stat 10/02/19 16:30 Sodium Chloride 0.9% [Normal Saline] 500 ml IV BOLUS
--- NOTE | 2019-10-02 16:57 | CT ---
Head CT Technique: Multiple axial sections through the brain were obtained. Intravenous contrast was not utilized. Comparison: No prior intracranial imaging is available. Findings: Ventricles along with basal cisterns and sulci over the convexities are within normal limits for the patient's age. No abnormal parenchymal densities are seen. No evidence of intracranial hemorrhage. No midline shift or mass-effect is seen. Bone window settings were reviewed which showed no acute calvarial finding. Visualized mastoid sinuses are clear. Moderate mucosal thickening seen within the maxillary and ethmoid sinuses as well as sphenoid sinuses. Previous sinus surgery is noted. Impression: 1. Chronic appearing sinus disease with prior sinus surgery. 2. No acute intracranial abnormality is appreciated. Diagnostic code #3 This report was dictated in MDT
[2019-10-02] MEDS: Sodium Chloride 0.9% 10 ML Syringe FLUSH PRN ×2 (17:03→17:04)
[2019-10-02 17:05] VITALS: BP 119/76; PULSE 73
[2019-10-02 17:08] LABS: BLOOD UREA NITROGEN,BUN 18 mg/dL (7.0-18.0); CARBON DIOXIDE,CO2 26.5 mmol/L (21.0-32.0); CHLORIDE,CL 99 mmol/L (98-107); GLUCOSE RANDOM 97 mg/dL (74-106); POTASSIUM,K 3.7 mmol/L (3.5-5.1); SODIUM,NA 136 mmol/L (136-148)
== END 2019-10-02 18:48 | disposition left against medical advice (07) ==
LOC: MW.ED 16:17
DX: G45.9 Transient cerebral ischemic attack, unspecified (principal); J45.909 Unspecified asthma, uncomplicated; F98.8 Other specified behavioral and emotional disorders with onset usually occurring in childhood and adolescence; F17.290 Nicotine dependence, other tobacco product, uncomplicated; Z91.048 Other nonmedicinal substance allergy status; Z88.8 Allergy status to other drugs, medicaments and biological substances; Z79.899 Other long term (current) drug therapy
CPT/HCPCS: 36415; 70450; 80053; 84484; 85025; 85610; 85730; 99284; J7040; 99283

== ENCOUNTER 2019-10-08 13:04 | Emergency (ER) | payer BC ==
[2019-10-08] MEDS ORDERED: Sodium Chloride 0.9% 2.5 ML Syringe FLUSH PRN (13:18)
[2019-10-08] MEDS ORDERED: Sodium Chloride 0.9% 10 ML Syringe FLUSH PRN (13:18)
[2019-10-08] MEDS ORDERED: Prochlorperazine 10 MG/2 ML SDV IVPUSH ONE (13:19)
[2019-10-08] MEDS ORDERED: Lactated Ringers 1,000 ML IV ONE (13:19)
[2019-10-08] MEDS ORDERED: Acetaminophen 500 MG Tab PO ONE (13:19)
[2019-10-08] MEDS ORDERED: Metoclopramide 10 MG/2 ML SDV IVPUSH ONE (13:26)
[2019-10-08] MEDS: Ibuprofen 400 MG Tab PO ONE ×2 (13:36→13:38)
--- NOTE | 2019-10-08 14:18 | EDM.PDOC ---
ED HPI GENERAL MEDICAL PROBLEM - General Chief Complaint: Headache Stated Complaint: PERSISTEN HEADACHES VISION LOSS Time Seen by Provider: 10/08/19 13:18 Source of Information: Reports: Patient, Old Records History Limitations: Reports: No Limitations - History of Present Illness INITIAL COMMENTS - FREE TEXT/NARRATIVE: 28-year-old male with a past medical history of migraines, asthma presenting with a headache. He was initially declared a stroke code from triage due to visual disturbances associated with a headache. He states that approximately 20 minutes prior to arrival, the patient was seated drinking a beer when he experienced a sudden onset of right-sided headache. This reached maximal intensity within seconds. This was accompanied by "stars" in the visual aldridge of his right eye. He has had prior headaches like this but they are not usually accompanied by visual disturbance. Patient denies any associated difficulty speaking, swallowing, facial or extrem ity numbness or weakness, or gait changes. He did complain of feeling lightheaded while he was ambulating into the emergency department room. Denies any history of trauma to the head. ROS: A 10-point review of systems was negative, except as noted in the HPI (or in the ROS section of this note). Past medical history: Reviewed, no additional pertinent history. Surgical history: Reviewed in system, no additional pertinent history. Social history: Reviewed in system, no additional pertinent history. Family history: Reviewed in system, no additional pertinent history. PHYSICAL EXAM Vital signs reviewed. Nursing notes reviewed. Constitutional: Awake, alert, non-distressed. Head: Normocephalic, atraumatic. Eyes: EOMI, conjunctiva normal, no discharge, no scleral icterus. Pupils 3 mm bilaterally. Ears, Nose, Throat: External ears and nose normal, moist oral mucosa. Cardiovascular: 2+ radial pulse, capillary refill less than 2 seconds. Pulmonary: normal work of breathing, no accessory muscle use. Abdomen/GI: Soft, nontender, nondistended, no guarding or rigidity, no masses. Musculoskeletal: No deformities. Integumentary: Appropriate color for ethnicity, warm, dry, no pallor or jaundice, no rash. Neurologic: Awake, alert, and oriented x3. Cranial nerves II through XII intact. No facial droop or dysarthria. Supple neck with normal range of motion. No pronator drift. Normal [id number] and efxn-br-exax. No dysdiadochokinesia. 5/5 strength in all extremities. Sensation intact to light touch x4. Normal gait. Normal visual aldridge, no field cuts. Able to sit, stand, and ambulate without assistance. Psychiatric: Appropriate mood and affect, normal thought process. headache Pain Score (Numeric/FACES): 10 - Related Data Allergies Allergy/AdvReac Type Severity Reaction Status Date / Time grass pollen Allergy Shortness Verified 10/08/19 13:15 of Breath pollen extracts Allergy Shortness Verified 10/08/19 13:15 of Breath aspirin Allergy Shortness Uncoded 10/08/19 13:15 of Breath Home Meds: Home Meds Dextroamphetamine/Amphetamine [Adderall] 30 mg PO BID 09/14/19 [History] Dupilumab [Dupixent] 300 mg IM ASDIRECTED 10/02/19 [History] Tiotropium [Spiriva HandiHaler] 1 inh INH DAILY 10/02/19 [History] Past Medical History - Past Health History Medical/Surgical History: Denies Medical/Surgical History HEENT History: Reports: Other (See Below) Other HEENT History: Nasal polyps Cardiovascular History: Reports: Other (See Below) Other Cardiovascular History: Palpitations Respiratory History: Reports: Asthma Gastrointestinal History: Reports: None Genitourinary History: Reports: None Musculoskeletal History: Reports: None Neurological History: Reports: None Psychiatric History: Reports: ADD, Anxiety Endocrine/Metabolic History: Reports: None Insulin Pump Model and Barrel Filler Head: None Hematologic History: Reports: None Immunologic History: Reports: None Oncologic (Cancer) History: Reports: None Dermatologic History: Reports: None - Infectious Disease History Infectious Disease History: Reports: Chicken Pox Other Infectious Disease History: chldhood - Past Surgical History Head Surgeries/Procedures: Reports: None HEENT Surgical History: Reports: Naso-Sinus Surgery Social & Family History - Family History Family Medical History: Noncontributory - Caffeine Use Caffeine Use: Reports: Coffee ED ROS GENERAL - Review of Systems Review Of Systems: See Below - Physical Exam Exam: See Below EKG INTERPRETATION EKG Interpretation Comments: 12-Lead ECG Interpretation Acquired: 1:14 PM Rhythm: Sinus rhythm Rate: 80 bpm [place]: Normal Intervals: Incomplete right bundle branch block Ectopy: None Ischemic Changes: None apparent RV Strain: No obvious RV strain pattern. ST Segments/T-Waves: T wave versions lead III Course - Vital Signs Text/Narrative:: Patient hemodynamically stable, afebrile, well-appearing, looks nontoxic. Differential diagnosis includes but is not limited to: meningitis, encephalitis, subarachnoid hemorrhage, subdural hematoma, epidural hematoma, carotid artery dissection, hypertensive encephalopathy, temporal arteritis, acute glaucoma, head injury, migraine, tension headache, cluster headache, sinusitis, pseudotumor cerebri, and many others. Stroke code was declared in triage and the patient was immediately roomed. He was quite lightheaded and we assisted him to the [place]. Monitoring equipment was attached and labs were sent off. Blood glucose level is normal. By my examination, the patient has no neurologic deficits and NIH stroke scale is 0. Stroke code was cancelled. Patient was given IV fluids along with IV metoclopramide, acetaminophen, and ibuprofen. When I reevaluated him, he states that the "stars" in the visual field of his right eye have gone away and his vision is back to normal. He is feeling much better after receiving medications. Radiologist read noncontrast head CT as pansinusitis with chronic appearance, no acute intracranial findings. Symptoms have been present for less than 6 hours so a noncontrast head CT should be sufficient to exclude subarachnoid h emorrhage. Neck is supple and patient has no neurologic deficits at this point. Troponin negative, electrolytes and renal function reassuring. CBC shows normal cell lines. 1440: Headache has totally resolved. Not feeling lightheaded. Able to stand and ambulate without any issues, symptoms are totally resolved, vision is back to normal. I feel like he likely had a migraine. I considered a multitude of differential diagnoses for the patient's headache, including: Subarachnoid hemorrhage (SAH): No evidence on non-contrast head CT. A non- contrast head CT has approximately 98.7-98.9% sensitivity for detecting SAH if performed within 6 hours (post-test probability 1.5:1,000), and 92% sensitivity within 24 hours, when interpreted by an attending radiologist. Ischemic CVA: Normal neurologic examination, no suggestion of new hypodensity or vascular occlusion on CT imaging. Transient ischemic attack: Low suspicion, visual symptoms resolved with supine position, rest, and medications. No transient focal neurologic deficit, no history of prior CVA/TIA. Intracranial hemorrhage (subdural hematoma, epidural hematoma, intraparenchymal hemorrhage): No evidence on head CT. No history of trauma. No anticoagulant/antiplatelet medication use. Cervical artery dissection: No history of recent neck trauma, no facial droop, CN 2-12 intact, no slurred speech, dysphagia, dysarthria, dysphonia, dysmetria, dizziness, dysdiadochokinesia, facial or extremity numbness/weakness, normal gait, able to sit/stand without new need for assistance. Meningoencephalitis: Afebrile, supple neck (able to flex/extent/rotate normally), no photophobia, no altered mental status, non-toxic appearing, no meningitis sick contacts, not immunosuppressed. Temporal arteritis: No temporal artery tenderness, no claudication with mastication. Low clinical suspicion. [employer] abscess: Afebrile, not chronically immunosuppressed (HIV/AIDS). No abscess visualized on CT. Hypertensive encephalopathy or PRES: No evidence of altered mental status, GCS 15, not markedly hypertensive (SBP <200 mmHg), no focal neurologic deficits on my exam. Acute angle-closure glaucoma: No visual changes on my exam, pupils reactive. Cluster headache: not supported by HPI. Plan: Patient is stable to discharge home with outpatient neurology clinic follow-up. Recommend [id number] acetaminophen ibuprofen for pain. Strict emergency department return precautions were provided, patient indicated understanding. All questions were answered prior to departure. Discharged in good condition. Last Recorded V/S: Last Vital Signs Temp 36.3 C 10/08/19 15:03 Pulse 75 10/08/19 15:03 Resp 20 10/08/19 15:03 BP 117/71 10/08/19 15:03 Pulse Ox 98 10/08/19 15:03 Orthostatic Blood Pressure [ 125/74 Standing] Orthostatic Blood Pressure [ 113/62 Sitting] Orthostatic Blood Pressure [ 118/59 Supine] - Orders/Labs/Meds Orders: Active Orders 24 hr Category Date Time Status Cardiac Monitoring [RC] . DIRECTED Care 10/08/19 13:34 Active EKG 12 Lead [EKG Documentation Completion] [RC] STAT Care 10/08/19 13:19 Active Orthostatic Vital Signs [RC] ASDIRECTED Care 10/08/19 13:18 Active Sodium Chloride 0.9% [Saline Flush] Med 10/08/19 13:18 Active 10 ml FLUSH ASDIRECTED PRN Sodium Chloride 0.9% [Saline Flush] Med 10/08/19 13:18 Active 2.5 ml FLUSH ASDIRECTED PRN Saline Lock Insert [OM.PC] Stat Oth 10/08/19 13:18 Ordered Medication Orders Sodium Chloride (Saline Flush) 10 ml FLUSH ASDIRECTED PRN PRN Reason: Keep Vein Open Last Admin: 10/08/19 13:36 Dose: 10 ml Documented by: GUICHO Sodium Chloride (Saline Flush) 2.5 ml FLUSH ASDIRECTED PRN PRN Reason: Keep Vein Open Last Admin: 10/08/19 13:36 Dose: 2.5 ml Documented by: GUICHO Labs: Laboratory Tests 10/08/19 10/08/19 Range/Units 13:12 13:12 WBC 7.01 (4.0-11.0) K/uL RBC 4.30 L (4.50-5.90) M/uL Hgb 13.5 (13.0-17.0) g/dL Hct 39.4 (38.0-50.0) % MCV 91.6 (80.0-98.0) fL MCH 31.4 (27.0-32.0) pg MCHC 34.3 (31.0-37.0) g/dL RDW Std Deviation 44.3 (28.0-62.0) fl RDW Coeff of Aisha 13 (11.0-15.0) % Plt Count 372 (150-400) K/uL MPV 10.50 (7.40-12.00) fL Neut % (Auto) 42.1 L (48.0-80.0) % Lymph % (Auto) 33.2 (16.0-40.0) % Louisa % (Auto) 9.0 (0.0-15.0) % Eos % (Auto) 14.3 H (0.0-7.0) % Baso % (Auto) 1.4 (0.0-1.5) % Neut # (Auto) 3.0 (1.4-5.7) K/uL Lymph # (Auto) 2.3 (0.6-2.4) K/uL Louisa # (Auto) 0.6 (0.0-0.8) K/uL Eos # (Auto) 1.0 H (0.0-0.7) K/uL Baso # (Auto) 0.1 (0.0-0.1) K/uL Nucleated RBC % 0.0 /100WBC Nucleated RBCs # 0 K/uL Sodium 138 (136-148) mmol/L Potassium 4.1 (3.5-5.1) mmol/L Chloride 101 (98-107) mmol/L Carbon Dioxide 24.5 (21.0-32.0) mmol/L BUN 17 (7.0-18.0) mg/dL Creatinine 1.2 (0.8-1.3) mg/dL Est Cr Clr Drug Dosing 99.69 mL/min Estimated GFR (MDRD) > 60.0 ml/min Glucose 97 (74-106) mg/dL Calcium 9.2 (8.5-10.1) mg/dL Troponin I < 0.050 (0.000-0.056) ng/mL Meds: Medications Generic Name Dose Route Start Last Admin Trade Name Freq PRN Reason Stop Dose Admin Sodium Chloride 10 ml 10/08/19 13:10/08/19 13:36 Saline Flush FLUSH 10 ml ASDIRECTED PRN Administration Keep Vein Open Sodium Chloride 2.5 ml 10/08/19 13:10/08/19 13:36 Saline Flush FLUSH 2.5 ml ASDIRECTED PRN Administration Keep Vein Open Discontinued Medications Generic Name Dose Route Start Last Admin Trade Name Freq PRN Reason Stop Dose Admin Acetaminophen 1,000 mg 10/08/19 13:10/08/19 13:36 Tylenol Extra Strength PO 10/08/19 13:20 1,000 mg ONETIME ONE Administration Lactated Ringer's 1,000 mls @ 999 mls/hr 10/08/19 13:10/08/19 13:35 Ringers, Lactated IV 10/08/19 14:19 999 mls/hr .BOLUS ONE Administration Ibuprofen 400 mg 10/08/19 13:19 10/08/19 13:38 Motrin PO 10/08/19 13:20 Not Given ONETIME ONE Metoclopramide HCl 5 mg 10/08/19 13:26 10/08/19 13:36 Reglan IVPUSH 10/08/19 13:27 5 mg ONETIME ONE Administration Prochlorperazine Edisylate 10 mg 10/08/19 13:19 10/08/19 13:39 Compazine IVPUSH 10/08/19 13:20 Not Given ONETIME ONE Departure - Departure Time of Disposition: 14:39 Disposition: Home, Self-Care 01 Condition: Good Clinical Impression: Migraine Qualifiers: Migraine type: without aura Status migrainosus presence: without status migrainosus Intractability: not intractable Qualified Code(s): G43.009 - Migraine without aura, not intractable, without status migrainosus - Discharge Information *PRESCRIPTION DRUG MONITORING PROGRAM REVIEWED*: Not Applicable *COPY OF PRESCRIPTION DRUG MONITORING REPORT IN PATIENT RICHARD: Not Applicable Instructions: Migraine Headache Referrals: Carol Smith MD [Physician] - 1 Week (For follow-up treatment of headaches.) Forms: ED Department Discharge Additional Instructions: You were seen in the emergency department for a headache. I am glad that you are feeling better. The CT scan of your head was normal. Your blood work looks reassuring. I would like for you to follow-up with our neurology clinic in the next 1 to 2 weeks for reevaluation. In the meantime you can take [id number] Tylenol and Motrin as needed for headache. Warning signs to come back to the ER include worsening headache, neck stiffness, fever, numbness or weakness of your face or arms or legs, trouble walking, trouble speaking or swallowing, or any other new or concerning symptoms. Please return the emergency department immediately if your symptoms worsen or if you feel worse. Thank you for choosing the [facility] emergency department in [place] for your medical needs today. It was a pleasure caring for you. The following information is given to patients seen in the emergency department who are being discharged. This information is to outline your options for follow-up care. We provide all patients seen in our emergency department with a follow-up referral. The need for follow-up, as well as the timing and circumstances, are variable depending upon the specifics of your emergency department visit. If you don't have a primary care physician on staff, we will provide you with a referral. We always advise you to contact your personal physician following an emergency department visit to inform them of the circumstance of the visit and for follow-up with them and/or the need for any referrals to a consulting specialist. The emergency department will also refer you to a specialist when appropriate. This referral assures that you have the opportunity for follow-up care with a specialist. All of these measure are taken in an effort to provide you with optimal care, which includes your follow-up. Under all circumstances we always encourage you to contact your private physician who remains a resource for coordinating your care. When calling for follow-up care, please make the office aware that this follow-up is from your recent emergency room visit. If for any reason you are refused follow-up, please contact the [facility] Emergency Department at and asked to speak to the emergency department charge nurse. If you do not have a primary care physician that is caring for you, you can contact these clinics below to set up an appointment to establish care: [facility] - Primary Care [address] [place], [place] [id number] [address] [address] Sepsis Event Note (ED) - Evaluation Sepsis Screening Result: No Definite Risk - Focused Exam Vital Signs: Vital Signs Temp Pulse Resp BP Pulse Ox 10/08/19 15:03 36.3 C 75 20 117/71 98 10/08/19 13:08 36.1 C 66 16 121/78 99 - My Orders Last 24 Hours: My Active Orders 10/08/19 13:18 Orthostatic Vital Signs [RC] ASDIRECTED Sodium Chloride 0.9% [Saline Flush] 10 ml FLUSH ASDIRECTED PRN Sodium Chloride 0.9% [Saline Flush] 2.5 ml FLUSH ASDIRECTED PRN Saline Lock Insert [OM.PC] Stat 10/08/19 13:19 EKG 12 Lead [EKG Documentation Completion] [RC] STAT 10/08/19 13:34 Cardiac Monitoring [RC] . DIRECTED - Assessment/Plan Last 24 Hours: My Active Orders 10/08/19 13:18 Orthostatic Vital Signs [RC] ASDIRECTED Sodium Chloride 0.9% [Saline Flush] 10 ml FLUSH ASDIRECTED PRN Sodium Chloride 0.9% [Saline Flush] 2.5 ml FLUSH ASDIRECTED PRN Saline Lock Insert [OM.PC] Stat 10/08/19 13:19 EKG 12 Lead [EKG Documentation Completion] [RC] STAT 10/08/19 13:34 Cardiac Monitoring [RC] . DIRECTED
[2019-10-08 14:28] LABS: BLOOD UREA NITROGEN,BUN 17 mg/dL (7.0-18.0); CARBON DIOXIDE,CO2 24.5 mmol/L (21.0-32.0); CHLORIDE,CL 101 mmol/L (98-107); GLUCOSE RANDOM 97 mg/dL (74-106); POTASSIUM,K 4.1 mmol/L (3.5-5.1); SODIUM,NA 138 mmol/L (136-148)
--- NOTE | 2019-10-08 14:32 | CT ---
Head CT Technique: Multiple axial sections through the brain were obtained. Intravenous contrast was not utilized. Comparison: Prior head CT study of 10/02/19. Findings: Ventricles along with basal cisterns and sulci over the convexities appear within normal limits for the patient's age. No abnormal parenchymal densities are seen. No evidence of intracranial hemorrhage. No midline shift or mass-effect is seen. Moderate mucosal thickening is noted within both maxillary sinuses and ethmoid sinuses as well as opacified left side of the sphenoid sinus. Mild mucosal thickening noted within the right sphenoid sinus. Mucosal thickening also extends into the frontal sinuses. Prior maxillary sinus surgery is noted. These sinus findings are stable from previous exam. No acute calvarial abnormality is seen. Mastoid sinuses are clear. Impression: 1. Pansinusitis which has the appearance of chronic sinusitis. Prior sinus surgery. 2. No acute intracranial abnormality is appreciated. No significant change from previous study is seen. Diagnostic code #3 This report was dictated in MDT
[2019-10-08 15:04] VITALS: BP 117/71; PULSE 75
== END 2019-10-08 15:10 | disposition home or self-care (01) ==
LOC: MW.ED 13:04
DX: G43.009 Migraine without aura, not intractable, without status migrainosus (principal); J45.909 Unspecified asthma, uncomplicated; Z88.6 Allergy status to analgesic agent; Z91.09 Other allergy status, other than to drugs and biological substances; Z79.899 Other long term (current) drug therapy
CPT/HCPCS: 36415; 70450; 80048; 84484; 85025; 93005; 96361; 96374; 99284; A9270; J2765; J7120; 99283

== ENCOUNTER 2020-02-04 15:42 | Emergency (ER) | payer SELFPAY ==
[2020-02-04] MEDS ORDERED: LORazepam 2 MG/ML SDV IVPUSH ONE ×2 (15:52)
[2020-02-04] MEDS ORDERED: Sodium Chloride 0.9% 1,000 ML IV ONE (15:52)
[2020-02-04] MEDS ORDERED: LORazepam 2 MG/ML SDV ONE (15:54)
[2020-02-04 16:31] LABS: BLOOD UREA NITROGEN,BUN 21 mg/dL (7.0-18.0); CARBON DIOXIDE,CO2 28.7 mmol/L (21.0-32.0); CHLORIDE,CL 102 mmol/L (98-107); GLUCOSE RANDOM 100 mg/dL (74-106); POTASSIUM,K 3.4 mmol/L (3.5-5.1); SODIUM,NA 141 mmol/L (136-148)
--- NOTE | 2020-02-04 16:40 | CR ---
INDICATION: Chest pain. COMPARISON: Single AP chest radiograph April 14, 2019. TECHNIQUE: Portable AP chest. FINDINGS: Cardiac defibrillator pad projecting over the right mid thorax. Normal size cardiac silhouette. No acute pneumonic infiltrates or CHF. No pneumothorax or pleural effusion. IMPRESSION: Negative portable AP chest. Dictated by Chris Mccartney MD @ Feb 04 2020 4:38PM Signed by Dr. Chris Mccartney @ Feb 04 2020 4:39PM
[2020-02-04] MEDS ORDERED: Potassium Chloride 10% 20 MEQ/15 ML Soln 15 ML UD Cup PO ONE ×2 (16:41→16:52)
[2020-02-04] MEDS ORDERED: Potassium Chloride 10% 20 MEQ/15 ML Soln 30 ML UD Cup ONE (16:54)
[2020-02-04 17:30] VITALS: BP 113/79; PULSE 105
--- NOTE | 2020-02-04 19:10 | EDM.PDOC ---
<Naveen Villafuerte - Last Filed: 02/04/20 19:09> ED HPI GENERAL MEDICAL PROBLEM - General Chief Complaint: Chest Pain Stated Complaint: SHORT OF BREATH Time Seen by Provider: 02/04/20 15:53 - History of Present Illness INITIAL COMMENTS - FREE TEXT/NARRATIVE: CHIEF COMPLAINT(S): Chest pain HISTORY OF PRESENT ILLNESS: This is a 29-year-old man with a past medical history of ADHD and multiple prior ED visits for chest pain who comes to the emergency department with a chief complaint of chest pain. The patient states that approximately 1 hour prior to arrival he took his ADHD medication Adderall which is 30 mg. He states that about an hour after that he started to experience central chest pain with bilateral arm numbness. He denies any diaphoresis but states that he did feel short of breath. He states that it feels similar to before however he felt like his arms are becoming stiff. He denies any personal or family history of CAD or early onset from heart issues. He denies any recent travel or recent surgery. Denies any history of DVT or PE. He states that he describes the pain as a pressure-like sensation. States that the pain is rated 5 out of 10 and there is no aggravating or relieving symptoms. He has not yet tried anything. He states that in the past when he was taking Adderall it has happened and so his primary care physician gave him clonazepam to use if this ever happens again. He states that they also decreased his dose to 30 mg extended release a day. REVIEW OF SYSTEMS: Constitutional: Denies fever, chills. Eyes: Denies eye pain Ears, Nose, Mouth, & Throat: Denies earache Cardiovascular: Positive for chest pain Respiratory: Positive for shortness of breath Gastrointestinal: Denies Nausea, vomiting, diarrhea, hematochezia. Genitourinary: Denies hematuria Skin:Denies a rash Neurological: Positive for bilateral arm numbness. Denies blurred vision Psychiatric: Positive for ADHD PAST MEDICAL HISTORY: As per history of present illness and as reviewed below otherwise noncontributory. SURGICAL HISTORY: As per history of present illness and as reviewed below otherwise noncontributory. SOCIAL HISTORY: As per history of present illness and as reviewed below otherwise noncontributory. FAMILY HISTORY: As per history of present illness and as reviewed below otherwise noncontributory. EXAMINATION OF ORGAN SYSTEMS/BODY AREAS: Constitutional: Blood pressure was 151/81, heart rate 142, respiratory rate 20 with an oxygen saturation of 98% on room air. General: Young male who appears to be anxious Psychiatric: Anxious appearing Eyes: No scleral icterus or conjunctival erythema ENMT: Moist mucous membranes. No pharyngeal erythema Cardiovascular: Tachycardic but regular no gallops, murmurs, or rubs. Bilateral upper extremity pulses symmetric and intact. No peripheral edema. No JVD. Respiratory: Lungs clear to auscultation bilaterally. No wheezes, rales, or rhonchi. Gastrointestinal: Soft, non-tender, non-distended. Normoactive bowel sounds Genitourinary: No suprapubic tenderness Musculoskeletal: Normal range of motion. Skin: No lesions or abrasions. Neurological: Alert, GCS 15 strength and sensation grossly intact in upper and lower extremities bilaterally. MEDICAL DECISION MAKING AND COURSE IN THE ED WITH INTERPRETATION/REVIEW OF DIAGNOSTIC STUDIES: This is a 29-year-old man with a past medical history of ADHD who is taking Adderall who comes to the emergency department with acute chest pain located in the center of his chest with bilateral arm numbness after taking Adderall. At this time we did obtain a screening EKG which did not reveal any acute signs of ischemia or changes from prior. At this time we will obtain a cardiac work-up including a D-dimer. Will obtain a chest x-ray. After about 5 minutes RN notified me that the patient's heart rate had gone up to 170. On reevaluation the patient appeared anxious and was having spasms of his extremities and was tachypneic with some mild diaphoresis. He again felt anxious. I provided the patient with 2 mg of IV Ativan and observe the patient and his heart rate came down and he appeared more calm after approximately 5 to 10 minutes. Twelve-lead EKG interpreted by myself. Sinus tachycardia at a rate of 119 beats per minute. Normal axis. DC interval is 148 ms. QRS duration does not appear wide. ST segments are normal without elevations or depressions. No Q waves present. Hypertrophy not noted. No changes demonstrated from prior EKG dated 10/08/2019. Interpretation: Sinus tachycardia Twelve-lead EKG interpreted by myself. Sinus tachycardia at a rate of 133 beats per minute. Normal axis. DC interval is 145 ms. QRS duration is not widened . ST segments are normal without elevations or depressions. No Q waves present. Hypertrophy not noted. No changes demonstrated from prior EKG dated today. Interpretation: Sinus tachycardia Twelve-lead EKG interpreted by myself. Normal sinus rhythm at a rate of 96 beats per minute. Normal axis. DC interval is 175 ms. QRS duration is not widened. ST segments are normal without elevations or depressions. No Q waves present. Hypertrophy not noted. No changes demonstrated from prior EKG dated today. Interpretation: Sinus rhythm Laboratory: CBC is unremarkable. D-dimer is negative. CMP reveals hypokalemia at 3.4 and a mildly elevated creatinine of 1.4 up from baseline at 1.2. Tr oponin is negative x1. TSH is normal. Urinalysis was a clean catch and was negative for leukocyte esterase, negative for nitrites, and negative for blood. WBC count 0. Interpretation: negative. UDS was positive for amphetamine After period of observation the patient did return to baseline. I did have a discussion with him regarding medication management and possibly decreasing his dose of Adderall and that he need to discuss this with Dr. Yan. At this time of signout the patient was pending repeat troponin. If the troponin is negative the patient is stable for discharge and follow-up with his primary care physician. DISPOSITION: Patient was signed out to oncoming night team physician pending repeat troponin CONDITION: Fair PROCEDURES: None FINAL IMPRESSION(S)/DIAGNOSES: 1. Acute atypical chest pain 2. Acute panic attack likely secondary to Adderall use Naveen Villafuerte M.D. L chest Pain Score (Numeric/FACES): 9 - Related Data Allergies Allergy/AdvReac Type Severity Reaction Status Date / Time grass pollen Allergy Shortness Verified 02/04/20 15:48 of Breath pollen extracts Allergy Shortness Verified 02/04/20 15:48 of Breath aspirin Allergy Shortness Uncoded 10/08/19 13:15 of Breath Home Meds: Home Meds Dextroamphetamine/Amphetamine [Adderall] 30 mg PO BID 09/14/19 [History] Dupilumab [Dupixent] 300 mg IM ASDIRECTED 10/02/19 [History] Tiotropium [Spiriva HandiHaler] 1 inh INH DAILY 10/02/19 [History] ClonazePAM [KlonoPIN] 0.5 mg PO DAILY PRN 02/04/20 [History] Past Medical History - Past Health History Medical/Surgical History: Denies Medical/Surgical History HEENT History: Reports: None, Other (See Below) Other HEENT History: Nasal polyps Cardiovascular History: Reports: Other (See Below) Other Cardiovascular History: Palpitations Respiratory History: Reports: Asthma Gastrointestinal History: Reports: None Genitourinary History: Reports: None Musculoskeletal History: Reports: None Neurological History: Reports: None Psychiatric History: Reports: ADD, Anxiety Endocrine/Metabolic History: Reports: None Insulin Pump Model and Dtp Operator: None Hematologic History: Reports: None Immunologic History: Reports: None Oncologic (Cancer) History: Reports: None Dermatologic History: Reports: None - Infectious Disease History Infectious Disease History: Reports: Chicken Pox Other Infectious Disease History: chldhood - Past Surgical History Head Surgeries/Procedures: Reports: None HEENT Surgical History: Reports: None, Naso-Sinus Surgery Cardiovascular Surgical History: Reports: None Respiratory Surgical History: Reports: None GI Surgical History: Reports: None Male Surgical History: Reports: None Neurological Surgical History: Reports: None Musculoskeletal Surgical History: Reports: Other (See Below) Other Musculoskeletal Surgeries/Procedures:: left knee surgery Oncologic Surgical History: Reports: None Dermatological Surgical History: Reports: None Social & Family History - Family History Family Medical History: No Pertinent Family History - Caffeine Use Caffeine Use: Reports: None - Recreational Drug Use Recreational Drug Use: No ED ROS GENERAL - Review of Systems Review Of Systems: See Below ED EXAM, GENERAL - Physical Exam Exam: See Below Departure - Departure Disposition: Home, Self-Care 01 Clinical Impression: Panic attack, Medication side effect, Atypical chest pain Instructions: Nonspecific Chest Pain, Adult, [id number], Managing Anxiety, Adult Referrals: PCP,None [Primary Care Provider] - Forms: ED Department Discharge Additional Instructions: Your seen and evaluated in the ER today secondary to your chest pain and rapid heart rate. This is most likely highly related to the use of your Adderall. We recommend that you refrain from usage of Adderall until reevaluated by your doctor to see if they want to decrease your dose given the reaction that he had today. Your cardiac enzymes as well as her EKG were all unremarkable for any damage that might have occurred to your heart. The following information is given to patients seen in the emergency department who are being discharged to home. This information is to outline your options for follow-up care. We provide all patients seen in our emergency department with a follow-up referral. The need for follow-up, as well as the timing and circumstances, are variable depending upon the specifics of your emergency department visit. If you don't have a primary care physician on staff, we will provide you with a referral. We always advise you to contact your personal physician following an emergency department visit to inform them of the circumstance of the visit and for follow-up with them and/or the need for any referrals to a consulting specialist. The emergency department will also refer you to a specialist when appropriate. This referral assures that you have the opportunity for follow-up care with a specialist. All of these measure are taken in an effort to provide you with optimal care, which includes your follow-up. Under all circumstances we always encourage you to contact your private physician who remains a resource for coordinating your care. When calling for follow-up care, please make the office aware that this follow-up is from your recent emergency room visit. If for any reason you are refused follow-up, please contact the [facility] Emergency Department at and asked to speak to the emergency department charge nurse. [facility] - Primary Care [address] [place] [address] [id number] Sepsis Event Note (ED) - Evaluation Sepsis Screening Result: No Definite Risk <Lalito Thurston - Last Filed: 02/04/20 19:49> ED HPI GENERAL MEDICAL PROBLEM - History of Present Illness INITIAL COMMENTS - FREE TEXT/NARRATIVE: Signout received from Dr. Shah at 7 PM. Patient was presented to the ER today secondary to chest discomfort and tachycardia presumed secondary to Adderall use and anxiety. Patient's labs have all been within normal limits. At time of transfer, second troponin is pending. Patient second opponent came back negative. At this time, will resume with the plan as outlined by Dr. Shah will discharge the patient to home with instructions to follow-up with his PCP and to avoid using his Adderall until reevaluated by his primary care doctor. Reassessment at the time of disposition demonstrates that the patient is in no acute distress. The patient has remained stable throughout the entire ED visit and is without objective evidence for acute process requiring urgent intervention or hospitalization. The patient is stable for discharge, counseling is provided as documented above, discussed symptomatic treatment and specific conditions for return. I have spoken with the patient/caregiver and discussed todays findings, in addition to providing specific details for the plan of care. Questions are answered and there is agreement with the plan. Course - Vital Signs Last Recorded V/S: Last Vital Signs Temp 98.5 F 02/04/20 16:00 Pulse 105 H 02/04/20 16:09 Resp 18 02/04/20 16:09 BP 113/79 02/04/20 16:09 Pulse Ox 100 02/04/20 16:09 - Orders/Labs/Meds Orders: Active Orders 24 hr Category Date Time Status EKG Documentation Completion [RC] STAT Care 02/04/20 15:52 Active Labs: Laboratory Tests 02/04/20 02/04/20 02/04/20 Range/Units 15:50 15:50 15:50 WBC 8.48 (4.0-11.0) K/uL RBC 4.69 (4.50-5.90) M/uL Hgb 14.6 (13.0-17.0) g/dL Hct 42.2 (38.0-50.0) % MCV 90.0 (80.0-98.0) fL MCH 31.1 (27.0-32.0) pg MCHC 34.6 (31.0-37.0) g/dL RDW Std Deviation 42.1 (28.0-62.0) fl RDW Coeff of Aisha 13 (11.0-15.0) % Plt Count 304 (150-400) K/uL MPV 10.20 (7.40-12.00) fL Neut % (Auto) 42.6 L (48.0-80.0) % Lymph % (Auto) 30.0 (16.0-40.0) % Morton % (Auto) 8.3 (0.0-15.0) % Eos % (Auto) 18.0 H (0.0-7.0) % Baso % (Auto) 1.1 (0.0-1.5) % Neut # (Auto) 3.6 (1.4-5.7) K/uL Lymph # (Auto) 2.5 H (0.6-2.4) K/uL Morton # (Auto) 0.7 (0.0-0.8) K/uL Eos # (Auto) 1.5 H (0.0-0.7) K/uL Baso # (Auto) 0.1 (0.0-0.1) K/uL Nucleated RBC % 0.0 /100WBC Nucleated RBCs # 0 K/uL D-Dimer, Quantitative 0.24 (0.0-0.50) mg/L FEU Sodium 141 (136-148) mmol/L Potassium 3.4 L (3.5-5.1) mmol/L Chloride 102 (98-107) mmol/L Carbon Dioxide 28.7 (21.0-32.0) mmol/L BUN 21 H (7.0-18.0) mg/dL Creatinine 1.4 H (0.8-1.3) mg/dL Est Cr Clr Drug Dosing 84.68 mL/min Estimated GFR (MDRD) 59.5 ml/min Glucose 100 (74-106) mg/dL Calcium 9.7 (8.5-10.1) mg/dL Magnesium (1.8-2.4) mg/dL Total Bilirubin 0.3 (0.2-1.0) mg/dL AST 19 (15-37) IU/L ALT 29 (14-63) IU/L Alkaline Phosphatase 96 (46-116) U/L Troponin I < 0.050 (0.000-0.056) ng/mL Total Protein 8.4 H (6.4-8.2) g/dL Albumin 4.2 (3.4-5.0) g/dL Globulin 4.2 H (2.6-4.0) g/dL Albumin/Globulin Ratio 1.0 (0.9-1.6) TSH 3rd Generation 1.23 (0.36-3.74) uIU/mL Urine Color Urine Appearance Urine pH (5.0-8.0) Ur Specific Bethany (1.001-1.035) Urine Protein (NEGATIVE) mg/dL Urine Glucose (UA) (NEGATIVE) mg/dL Urine Ketones (NEGATIVE) mg/dL Urine Occult Blood (NEGATIVE) Urine Nitrite (NEGATIVE) Urine Bilirubin (NEGATIVE) Urine Urobilinogen (<2.0) EU/dL Ur Leukocyte Esterase (NEGATIVE) Urine Opiates Screen (NEGATIVE) Ur Oxycodone Screen (NEGATIVE) Urine Methadone Screen (NEGATIVE) Ur Barbiturates Screen (NEGATIVE) Ur Phencyclidine Scrn (NEGATIVE) Ur Amphetamine Screen (NEGATIVE) U Methamphetamines Scrn (NEGATIVE) U Benzodiazepines Scrn (NEGATIVE) U Cocaine Metab Screen (NEGATIVE) U Marijuana (THC) Screen (NEGATIVE) 02/04/20 02/04/20 02/04/20 Range/Units 15:50 16:33 16:33 WBC (4.0-11.0) K/uL RBC (4.50-5.90) M/uL Hgb (13.0-17.0) g/dL Hct (38.0-50.0) % MCV (80.0-98.0) fL MCH (27.0-32.0) pg MCHC (31.0-37.0) g/dL RDW Std Deviation (28.0-62.0) fl RDW Coeff of Aisha (11.0-15.0) % Plt Count (150-400) K/uL MPV (7.40-12.00) fL Neut % (Auto) (48.0-80.0) % Lymph % (Auto) (16.0-40.0) % Morton % (Auto) (0.0-15.0) % Eos % (Auto) (0.0-7.0) % Baso % (Auto) (0.0-1.5) % Neut # (Auto) (1.4-5.7) K/uL Lymph # (Auto) (0.6-2.4) K/uL Morton # (Auto) (0.0-0.8) K/uL Eos # (Auto) (0.0-0.7) K/uL Baso # (Auto) (0.0-0.1) K/uL Nucleated RBC % /100WBC Nucleated RBCs # K/uL D-Dimer, Quantitative (0.0-0.50) mg/L FEU Sodium (136-148) mmol/L Potassium (3.5-5.1) mmol/L Chloride (98-107) mmol/L Carbon Dioxide (21.0-32.0) mmol/L BUN (7.0-18.0) mg/dL Creatinine (0.8-1.3) mg/dL Est Cr Clr Drug Dosing mL/min Estimated GFR (MDRD) ml/min Glucose (74-106) mg/dL Calcium (8.5-10.1) mg/dL Magnesium 1.9 (1.8-2.4) mg/dL Total Bilirubin (0.2-1.0) mg/dL AST (15-37) IU/L ALT (14-63) IU/L Alkaline Phosphatase (46-116) U/L Troponin I (0.000-0.056) ng/mL Total Protein (6.4-8.2) g/dL Albumin (3.4-5.0) g/dL Globulin (2.6-4.0) g/dL Albumin/Globulin Ratio (0.9-1.6) TSH 3rd Generation (0.36-3.74) uIU/mL Urine Color YELLOW Urine Appearance CLEAR Urine pH 7.0 (5.0-8.0) Ur Specific Bethany 1.025 (1.001-1.035) Urine Protein NEGATIVE (NEGATIVE) mg/dL Urine Glucose (UA) NEGATIVE (NEGATIVE) mg/dL Urine Ketones NEGATIVE (NEGATIVE) mg/dL Urine Occult Blood NEGATIVE (NEGATIVE) Urine Nitrite NEGATIVE (NEGATIVE) Urine Bilirubin NEGATIVE (NEGATIVE) Urine Urobilinogen 0.2 (<2.0) EU/dL Ur Leukocyte Esterase NEGATIVE (NEGATIVE) Urine Opiates Screen NEGATIVE (NEGATIVE) Ur Oxycodone Screen NEGATIVE (NEGATIVE) Urine Methadone Screen NEGATIVE (NEGATIVE) Ur Barbiturates Screen NEGATIVE (NEGATIVE) Ur Phencyclidine Scrn NEGATIVE (NEGATIVE) Ur Amphetamine Screen POSITIVE (NEGATIVE) U Methamphetamines Scrn NEGATIVE (NEGATIVE) U Benzodiazepines Scrn NEGATIVE (NEGATIVE) U Cocaine Metab Screen NEGATIVE (NEGATIVE) U Marijuana (THC) Screen NEGATIVE (NEGATIVE) 02/04/20 Range/Units 19:02 WBC (4.0-11.0) K/uL RBC (4.50-5.90) M/uL Hgb (13.0-17.0) g/dL Hct (38.0-50.0) % MCV (80.0-98.0) fL MCH (27.0-32.0) pg MCHC (31.0-37.0) g/dL RDW Std Deviation (28.0-62.0) fl RDW Coeff of Aisha (11.0-15.0) % Plt Count (150-400) K/uL MPV (7.40-12.00) fL Neut % (Auto) (48.0-80.0) % Lymph % (Auto) (16.0-40.0) % Morton % (Auto) (0.0-15.0) % Eos % (Auto) (0.0-7.0) % Baso % (Auto) (0.0-1.5) % Neut # (Auto) (1.4-5.7) K/uL Lymph # (Auto) (0.6-2.4) K/uL Morton # (Auto) (0.0-0.8) K/uL Eos # (Auto) (0.0-0.7) K/uL Baso # (Auto) (0.0-0.1) K/uL Nucleated RBC % /100WBC Nucleated RBCs # K/uL D-Dimer, Quantitative (0.0-0.50) mg/L FEU Sodium (136-148) mmol/L Potassium (3.5-5.1) mmol/L Chloride (98-107) mmol/L Carbon Dioxide (21.0-32.0) mmol/L BUN (7.0-18.0) mg/dL Creatinine (0.8-1.3) mg/dL Est Cr Clr Drug Dosing mL/min Estimated GFR (MDRD) ml/min Glucose (74-106) mg/dL Calcium (8.5-10.1) mg/dL Magnesium (1.8-2.4) mg/dL Total Bilirubin (0.2-1.0) mg/dL AST (15-37) IU/L ALT (14-63) IU/L Alkaline Phosphatase (46-116) U/L Troponin I < 0.050 (0.000-0.056) ng/mL Total Protein (6.4-8.2) g/dL Albumin (3.4-5.0) g/dL Globulin (2.6-4.0) g/dL Albumin/Globulin Ratio (0.9-1.6) TSH 3rd Generation (0.36-3.74) uIU/mL Urine Color Urine Appearance Urine pH (5.0-8.0) Ur Specific Bethany (1.001-1.035) Urine Protein (NEGATIVE) mg/dL Urine Glucose (UA) (NEGATIVE) mg/dL Urine Ketones (NEGATIVE) mg/dL Urine Occult Blood (NEGATIVE) Urine Nitrite (NEGATIVE) Urine Bilirubin (NEGATIVE) Urine Urobilinogen (<2.0) EU/dL Ur Leukocyte Esterase (NEGATIVE) Urine Opiates Screen (NEGATIVE) Ur Oxycodone Screen (NEGATIVE) Urine Methadone Screen (NEGATIVE) Ur Barbiturates Screen (NEGATIVE) Ur Phencyclidine Scrn (NEGATIVE) Ur Amphetamine Screen (NEGATIVE) U Methamphetamines Scrn (NEGATIVE) U Benzodiazepines Scrn (NEGATIVE) U Cocaine Metab Screen (NEGATIVE) U Marijuana (THC) Screen (NEGATIVE) Meds: Medications Discontinued Medications Generic Name Dose Route Start Last Admin Trade Name Freq PRN Reason Stop Dose Admin Sodium Chloride 1,000 mls @ 999 mls/hr 02/04/20 15:52 02/04/20 15:52 Normal Saline IV 02/04/20 16:52 999 mls/hr STAT ONE Administration Lorazepam 1 mg 02/04/20 15:52 02/04/20 16:08 Ativan IVPUSH 02/04/20 15:53 Not Given ONETIME ONE Lorazepam Confirm 02/04/20 15:54 02/04/20 16:30 Ativan Administered 02/04/20 15:55 Not Given Dose 2 mg .ROUTE .STK-MED ONE Lorazepam 2 mg 02/04/20 15:52 02/04/20 15:52 Ativan IVPUSH 02/04/20 15:53 2 mg ONETIME ONE Administration Potassium Chloride 40 meq 02/04/20 16:52 02/04/20 17:21 Potassium Chloride Solution PO 02/04/20 16:53 Not Given DAILY ONE Potassium Chloride Confirm 02/04/20 16:54 02/04/20 16:58 Potassium Chloride Administered 02/04/20 16:55 40 meq Dose Administration 40 meq .ROUTE .STK-MED ONE Departure - Departure Time of Disposition: 19:48 Sepsis Event Note (ED) - Focused Exam Vital Signs: Vital Signs Temp Pulse Resp BP Pulse Ox 02/04/20 16:09 105 H 18 113/79 100 02/04/20 16:00 98.5 F 98 20 142/85 H 98 02/04/20 15:55 142 H 20 151/81 H 142 H
== END 2020-02-04 20:01 | disposition home or self-care (01) ==
LOC: MW.ED 15:42
DX: F41.0 Panic disorder [episodic paroxysmal anxiety] (principal); T43.625A Adverse effect of amphetamines, initial encounter; J45.909 Unspecified asthma, uncomplicated; Z91.09 Other allergy status, other than to drugs and biological substances; Z88.8 Allergy status to other drugs, medicaments and biological substances; Z79.899 Other long term (current) drug therapy
CPT/HCPCS: 36415; 71045; 80053; 80305; 81003; 83735; 84443; 84484; 85025; 85379; 93005; 96374; 99285; A9270; J2060; J7030; 93010; 99283

== ENCOUNTER 2020-03-03 20:47 | Emergency (ER) | payer SELFPAY ==
--- NOTE | 2020-03-03 21:09 | EDM.PDOC ---
<Neo Hoang - Last Filed: 03/03/20 23:25> ED HPI GENERAL MEDICAL PROBLEM - General Chief Complaint: General Stated Complaint: COVID S Time Seen by Provider: 03/03/20 20:48 - History of Present Illness INITIAL COMMENTS - FREE TEXT/NARRATIVE: Use Tylenol only for fever as well as plenty of fluids. Ibuprofen was recommended but that was when the advanced practice provider did not realize that you cannot take NSAIDs. - Related Data Allergies Allergy/AdvReac Type Severity Reaction Status Date / Time grass pollen Allergy Shortness Verified 03/03/20 20:54 of Breath pollen extracts Allergy Shortness Verified 03/03/20 20:54 of Breath aspirin Allergy Shortness Uncoded 03/03/20 20:54 of Breath Home Meds: Home Meds Dextroamphetamine/Amphetamine [Adderall] 30 mg PO BID 09/14/19 [History] Dupilumab [Dupixent] 300 mg IM ASDIRECTED 10/02/19 [History] Tiotropium [Spiriva HandiHaler] 1 inh INH DAILY 10/02/19 [History] ClonazePAM [KlonoPIN] 0.5 mg PO DAILY PRN 02/04/20 [History] predniSONE [Prednisone] 40 mg PO DAILY #10 tablet 03/03/20 [Rx] Course - Vital Signs Text/Narrative:: 11:25 PM 2325 patient's D-dimer was the upper limits of normal but within the normal range. It is not verified at this time because of the difficulty with control itself. The patient is low risk and I am going to send him home. His heart rate came down to normal. Departure - Departure Time of Disposition: 23:26 Disposition: Home, Self-Care 01 Condition: Good Clinical Impression: Myalgia, Viral syndrome - Discharge Information Prescriptions: predniSONE [Prednisone] 40 mg PO DAILY #10 tablet Instructions: Musculoskeletal Pain, Viral Illness, Adult Referrals: Andi Holland MD [Primary Care Provider] - Forms: ED Department Discharge Additional Instructions: [facility] - Primary Care [address] [place] [address] [id number] [address] [address] The following information is given to patients seen in the emergency department who are being discharged to home. This information is to outline your options for follow-up care. We provide all patients seen in our emergency department with a follow-up referral. The need for follow-up, as well as the timing and circumstances, are variable depending upon the specifics of your emergency department visit. If you don't have a primary care physician on staff, we will provide you with a referral. We always advise you to contact your personal physician following an emergency department visit to inform them of the circumstance of the visit and for follow-up with them and/or the need for any referrals to a consulting specialist. The emergency department will also refer you to a specialist when appropriate. This referral assures that you have the opportunity for follow-up care with a specialist. All of these measure are taken in an effort to provide you with optimal care, which includes your follow-up. Under all circumstances we always encourage you to contact your private physician who remains a resource for coordinating your care. When calling for follow-up care, please make the office aware that this follow-up is from your recent emergency room visit. If for any reason you are refused follow-up, please contact the [facility] Emergency Department at and asked to speak to the emergency department charge nurse. <Yaron Jesus E - Last Filed: 03/05/20 20:50> ED HPI GENERAL MEDICAL PROBLEM - General Source of Information: Reports: Patient History Limitations: Reports: No Limitations - History of Present Illness INITIAL COMMENTS - FREE TEXT/NARRATIVE: HISTORY AND PHYSICAL: History of present illness: Patient is a 29-year-old male who presents to the emergency room with complaints of body aches, fatigue, headache, fever and shortness of breath. He states it feels like he has COVID although he was diagnosed with COVID-19 on 01/05/2020. Patient states yesterday he started to have shortness of breath and fatigue feeling like he needed to rest frequently. He has had a subjective fever that started this morning along with sore throat, generalized headache and body aches. He has noticed a dry infrequent cough today. Patient denies any chills, change in vision, syncope or near syncope. Denies any chest pain, back pain, or hemoptysis. Denies any abdominal pain, nausea, vomiting, diarrhea, constipation or dysuria. Has not noted any blood in urine or stool. Patient has been eating and drinking appropriately. Patient does have a history of ADHD and multiple prior ED visits for chest pain. He has had drug interactions with her is prescribed Adderall. Most recently was seen in the emergency room last month for shortness of breath and chest pain. He did have a full work-up which was all within normal limits. He states since his last ER visit he had his Adderall decreased from 30 mg to 20 mg. He states in the past he has had to use clonazepam for his breakthrough chest pain related to his Adderall. He denies any personal or family history of coronary artery disease or early onset of from heart issues. Denies any recent travel or recent surgery. Denies any history of DVT or PE. Review of systems: As per history of present illness and below otherwise all systems reviewed and negative. Past medical history: As per history of present illness and as reviewed below otherwise noncontributory. Surgical history: As per history of present illness and as reviewed below otherwise noncontr ibutory. Social history: See social history for further information Family history: As per history of present illness and as reviewed below otherwise noncontributory. Physical exam: General: Well developed and well nourished 29-year-old male. Alert and orientated x 3. Nontoxic in appearance and in no acute distress. Vital signs are stable and have been reviewed by me. Nursing notes were reviewed. HEENT: Atraumatic, normocephalic, pupils equal and reactive bilaterally, negative for conjunctival pallor or scleral icterus, mucous membranes moist, TMs normal bilaterally, throat clear, neck supple, nontender, trachea midline. No drooling or trismus noted. No meningeal signs. No hot potato voice noted. No nuchal rigidity. Lungs: Clear to auscultation bilaterally. No wheezing, rales, or rhonchi. chest nontender. Normal work of breathing, no accessory muscles used. Heart: S1S2, regular rate and rhythm without overt murmur Abdomen: Soft, nondistended, nontender. Negative for masses or h epatosplenomegaly. Negative for costovertebral tenderness. Pelvis: Stable nontender. Skin: Intact, warm, dry. No lesions or rashes noted. Hematologic: No petechiae or purpra. Mucosa appropriate color and normal nail bed color and refill. Extremities: Atraumatic, moves all extremities per self without difficulty or deficits, negative for cords or calf pain. Neurovascular unremarkable. Neuro: Awake, alert, oriented. Cranial nerves II through XII unremarkable. Cerebellum unremarkable. Motor and sensory unremarkable throughout. Exam nonfocal. Psychiatric: Mood and affect are appropriate. Normal thought process. Answering questions appropriately. Notes: *This patient was seen and evaluated during the 2019 SARS-CoV-2 novel coronavirus pandemic period. Community viral transmission is ongoing at time of this encounter and the emergency department is operating under pandemic response procedures. Chest x-ray shows no acute findings. Some lab work is not yet returned. Dr Hoang will assume care of this patient and disposition patient appropriately. Diagnostics: CBC, CMP, CPK, Haralson, COVID/Influenza, Strep Therapeutics: Toradol IM Prescription: None Plan: 1. Today's lab work, EKG, and chest x-ray are within normal limits. 2. You can take Tylenol as needed for pain and fever management. 3. We encourage you to follow up with your primary care provider and/or recommended specialist in the next few days for re-evaluation and further care/management. 4. If your symptoms should worsen, new symptoms develop or any of the signs and symptoms we discussed should arise please return to the emergency room or call 911 (if needed). Definitive disposition and diagnosis as appropriate pending reevaluation and review of above. Duration: Day(s): Chest Pain Score (Numeric/FACES): 5 Past Medical History - Past Health History Medical/Surgical History: Denies Medical/Surgical History HEENT History: Reports: None, Other (See Below) Other HEENT History: Nasal polyps Cardiovascular History: Reports: Other (See Below) Other Cardiovascular History: Palpitations Respiratory History: Reports: Asthma Gastrointestinal History: Reports: None Genitourinary History: Reports: None Musculoskeletal History: Reports: None Neurological History: Reports: None Psychiatric History: Reports: ADD, Anxiety Endocrine/Metabolic History: Reports: None 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: None Hematologic History: Reports: None Immunologic History: Reports: None Oncologic (Cancer) History: Reports: None Dermatologic History: Reports: None - Infectious Disease History Infectious Disease History: Reports: Chicken Pox Other Infectious Disease History: chldhood - Past Surgical History Head Surgeries/Procedures: Reports: None HEENT Surgical History: Reports: None, Naso-Sinus Surgery Cardiovascular Surgical History: Reports: None Respiratory Surgical History: Reports: None GI Surgical History: Reports: None Male Surgical History: Reports: None Neurological Surgical History: Reports: None Musculoskeletal Surgical History: Reports: Other (See Below) Other Musculoskeletal Surgeries/Procedures:: left knee surgery Oncologic Surgical History: Reports: None Dermatological Surgical History: Reports: None Social & Family History - Family History Family Medical History: No Pertinent Family History - Tobacco Use Tobacco Use Status *Q: Current Every Day Tobacco User Years of Tobacco use: 10 Packs/Tins Daily: 0.5 - Caffeine Use Caffeine Use: Reports: Tea - Recreational Drug Use Recreational Drug Use: No ED ROS GENERAL - Review of Systems Review Of Systems: Comprehensive ROS is negative, except as noted in HPI. ED EXAM, GENERAL - Physical Exam Exam: See Below (See dictation) Course - Vital Signs Last Recorded V/S: Last Vital Signs Temp 97.5 F 03/03/20 23:30 Pulse 102 H 03/03/20 23:30 Resp 18 03/03/20 23:30 BP 104/62 03/03/20 23:30 Pulse Ox 96 03/03/20 23:30 - Orders/Labs/Meds Labs: Laboratory Tests 03/03/20 03/03/20 03/03/20 Range/Units 21:09 21:09 21:09 WBC 10.93 (4.0-11.0) K/uL RBC 4.42 L (4.50-5.90) M/uL Hgb 13.7 (13.0-17.0) g/dL Hct 40.3 (38.0-50.0) % MCV 91.2 (80.0-98.0) fL MCH 31.0 (27.0-32.0) pg MCHC 34.0 (31.0-37.0) g/dL RDW Std Deviation 44.3 (28.0-62.0) fl RDW Coeff of Aisha 13 (11.0-15.0) % Plt Count 262 (150-400) K/uL MPV 10.30 (7.40-12.00) fL Neut % (Auto) 74.0 (48.0-80.0) % Lymph % (Auto) 11.3 L (16.0-40.0) % Haralson % (Auto) 11.8 (0.0-15.0) % Eos % (Auto) 2.5 (0.0-7.0) % Baso % (Auto) 0.4 (0.0-1.5) % Neut # (Auto) 8.1 H (1.4-5.7) K/uL Lymph # (Auto) 1.2 (0.6-2.4) K/uL Haralson # (Auto) 1.3 H (0.0-0.8) K/uL Eos # (Auto) 0.3 (0.0-0.7) K/uL Baso # (Auto) 0.0 (0.0-0.1) K/uL Nucleated RBC % 0.0 /100WBC Nucleated RBCs # 0 K/uL D-Dimer, Quantitative (0.0-0.50) mg/L FEU Sodium 137 (136-148) mmol/L Potassium 3.6 (3.5-5.1) mmol/L Chloride 98 (98-107) mmol/L Carbon Dioxide 29.5 (21.0-32.0) mmol/L BUN 12 (7.0-18.0) mg/dL Creatinine 1.3 (0.8-1.3) mg/dL Est Cr Clr Drug Dosing 91.20 mL/min Estimated GFR (MDRD) > 60.0 ml/min Glucose 97 (74-106) mg/dL Calcium 9.7 (8.5-10.1) mg/dL Total Bilirubin 0.4 (0.2-1.0) mg/dL AST 21 (15-37) IU/L ALT 30 (14-63) IU/L Alkaline Phosphatase 87 (46-116) U/L Creatine Kinase 107 (26-308) U/L Troponin I < 0.050 (0.000-0.056) ng/mL Total Protein 8.3 H (6.4-8.2) g/dL Albumin 3.9 (3.4-5.0) g/dL Globulin 4.4 H (2.6-4.0) g/dL Albumin/Globulin Ratio 0.9 (0.9-1.6) Monoscreen (NEG) Influenza Type A RNA (NEGATIVE) Influenza Type B RNA (NEGATIVE) SARS-CoV-2 RNA (KATHE) (NEGATIVE) Group A Strep (PCR) (NOT DETECT) 03/03/20 03/03/20 03/03/20 Range/Units 21:09 21:09 21:10 WBC (4.0-11.0) K/uL RBC (4.50-5.90) M/uL Hgb (13.0-17.0) g/dL Hct (38.0-50.0) % MCV (80.0-98.0) fL MCH (27.0-32.0) pg MCHC (31.0-37.0) g/dL RDW Std Deviation (28.0-62.0) fl RDW Coeff of Aisha (11.0-15.0) % Plt Count (150-400) K/uL MPV (7.40-12.00) fL Neut % (Auto) (48.0-80.0) % Lymph % (Auto) (16.0-40.0) % Haralson % (Auto) (0.0-15.0) % Eos % (Auto) (0.0-7.0) % Baso % (Auto) (0.0-1.5) % Neut # (Auto) (1.4-5.7) K/uL Lymph # (Auto) (0.6-2.4) K/uL Haralson # (Auto) (0.0-0.8) K/uL Eos # (Auto) (0.0-0.7) K/uL Baso # (Auto) (0.0-0.1) K/uL Nucleated RBC % /100WBC Nucleated RBCs # K/uL D-Dimer, Quantitative 0.52 H (0.0-0.50) mg/L FEU Sodium (136-148) mmol/L Potassium (3.5-5.1) mmol/L Chloride (98-107) mmol/L Carbon Dioxide (21.0-32.0) mmol/L BUN (7.0-18.0) mg/dL Creatinine (0.8-1.3) mg/dL Est Cr Clr Drug Dosing mL/min Estimated GFR (MDRD) ml/min Glucose (74-106) mg/dL Calcium (8.5-10.1) mg/dL Total Bilirubin (0.2-1.0) mg/dL AST (15-37) IU/L ALT (14-63) IU/L Alkaline Phosphatase (46-116) U/L Creatine Kinase (26-308) U/L Troponin I (0.000-0.056) ng/mL Total Protein (6.4-8.2) g/dL Albumin (3.4-5.0) g/dL Globulin (2.6-4.0) g/dL Albumin/Globulin Ratio (0.9-1.6) Monoscreen NEGATIVE (NEG) Influenza Type A RNA NEGATIVE (NEGATIVE) Influenza Type B RNA NEGATIVE (NEGATIVE) SARS-CoV-2 RNA (KATHE) NEGATIVE (NEGATIVE) Group A Strep (PCR) (NOT DETECT) 03/03/20 Range/Units 21:10 WBC (4.0-11.0) K/uL RBC (4.50-5.90) M/uL Hgb (13.0-17.0) g/dL Hct (38.0-50.0) % MCV (80.0-98.0) fL MCH (27.0-32.0) pg MCHC (31.0-37.0) g/dL RDW Std Deviation (28.0-62.0) fl RDW Coeff of Aisha (11.0-15.0) % Plt Count (150-400) K/uL MPV (7.40-12.00) fL Neut % (Auto) (48.0-80.0) % Lymph % (Auto) (16.0-40.0) % Haralson % (Auto) (0.0-15.0) % Eos % (Auto) (0.0-7.0) % Baso % (Auto) (0.0-1.5) % Neut # (Auto) (1.4-5.7) K/uL Lymph # (Auto) (0.6-2.4) K/uL Haralson # (Auto) (0.0-0.8) K/uL Eos # (Auto) (0.0-0.7) K/uL Baso # (Auto) (0.0-0.1) K/uL Nucleated RBC % /100WBC Nucleated RBCs # K/uL D-Dimer, Quantitative (0.0-0.50) mg/L FEU Sodium (136-148) mmol/L Potassium (3.5-5.1) mmol/L Chloride (98-107) mmol/L Carbon Dioxide (21.0-32.0) mmol/L BUN (7.0-18.0) mg/dL Creatinine (0.8-1.3) mg/dL Est Cr Clr Drug Dosing mL/min Estimated GFR (MDRD) ml/min Glucose (74-106) mg/dL Calcium (8.5-10.1) mg/dL Total Bilirubin (0.2-1.0) mg/dL AST (15-37) IU/L ALT (14-63) IU/L Alkaline Phosphatase (46-116) U/L Creatine Kinase (26-308) U/L Troponin I (0.000-0.056) ng/mL Total Protein (6.4-8.2) g/dL Albumin (3.4-5.0) g/dL Globulin (2.6-4.0) g/dL Albumin/Globulin Ratio (0.9-1.6) Monoscreen (NEG) Influenza Type A RNA (NEGATIVE) Influenza Type B RNA (NEGATIVE) SARS-CoV-2 RNA (KATHE) (NEGATIVE) Group A Strep (PCR) NOT DETECTED (NOT DETECT) Meds: Medications Discontinued Medications Generic Name Dose Route Start Last Admin Trade Name Freq PRN Reason Stop Dose Admin Ketorolac Tromethamine 60 mg 03/03/20 21:13 03/03/20 21:21 Toradol IM 03/03/20 21:14 60 mg ONETIME ONE Administration Sepsis Event Note (ED) - Evaluation Sepsis Screening Result: Possible Sepsis Risk
[2020-03-03] MEDS ORDERED: Ketorolac 60 MG/2 ML SDV IM ONE (21:13)
--- NOTE | 2020-03-03 21:31 | CR ---
INDICATION: Chest pain, shortness of breath TECHNIQUE: Portable upright AP view of the chest COMPARISON: AP chest radiograph 02/04/2020 FINDINGS: The lungs are clear. There is no sizable pleural effusion or pneumothorax. The cardiomediastinal silhouette is normal. The visualized osseous structures are unremarkable. IMPRESSION: No acute intrathoracic process. Dictated by Kristen Hoover MD @ Mar 03 2020 9:27PM Signed by Dr. Kristen Hoover @ Mar 03 2020 9:28PM
--- NOTE | 2020-03-03 21:34 | PCM.SN.2 ---
- Free Text/Narrative Note: EKG sinus tachycardia heart rate 111 RSR prime in V1 and V2 ST elevation consistent with early rule repull or pericarditis AK interval 148 QT 431 [place] I 141 this is compared to 02/04/2020 and it really appears not change. Impression no acute change
[2020-03-03 21:55] LABS: BLOOD UREA NITROGEN,BUN 12 mg/dL (7.0-18.0); CARBON DIOXIDE,CO2 29.5 mmol/L (21.0-32.0); CHLORIDE,CL 98 mmol/L (98-107); GLUCOSE RANDOM 97 mg/dL (74-106); POTASSIUM,K 3.6 mmol/L (3.5-5.1); SODIUM,NA 137 mmol/L (136-148)
[2020-03-03 22:01] LABS: CORONAVIRUS COVID-19 NAA NEGATIVE (NEGATIVE); INFLUENZA A NAA NEGATIVE (NEGATIVE); INFLUENZA B NAA NEGATIVE (NEGATIVE)
[2020-03-03 23:32] VITALS: BP 104/62; PULSE 102
== END 2020-03-03 23:25 | disposition home or self-care (01) ==
LOC: MW.ED 20:47
DX: B34.9 Viral infection, unspecified (principal); J45.909 Unspecified asthma, uncomplicated; Z91.048 Other nonmedicinal substance allergy status; Z88.6 Allergy status to analgesic agent; Z79.899 Other long term (current) drug therapy; Z72.0 Tobacco use; Z20.822 Contact with and (suspected) exposure to COVID-19
CPT/HCPCS: 0240U; 36415; 71045; 80053; 82550; 84484; 85025; 85379; 86308; 87651; 93005; 96372; 99285; J1885; 93010; 99283

== ENCOUNTER 2020-04-30 22:35 | Emergency (ER) | payer MEDICAID ==
--- NOTE | 2020-04-30 22:36 | EDM.PDOC ---
ED HPI GENERAL MEDICAL PROBLEM - General Stated Complaint: RECTAL BLEEDING Time Seen by Provider: 04/30/20 22:36 Source of Information: Reports: Patient History Limitations: Reports: No Limitations - History of Present Illness INITIAL COMMENTS - FREE TEXT/NARRATIVE: 29-year-old male past medical history nasal polyps, ADHD, psychiatric problems, panic disorder presents for rectal bleeding x4 hours. Patient denies history of similar. He denies any associated abdominal pain or rectal pain. The blood occurs as bright red blood per rectum without the passage of clots. It is occurring without any associated bowel movements. Patient does note mild lightheadedness/dizziness. He denies chest pain or difficulty breathing. He does endorse a history of panic attacks and states that he feels quite anxious concerning with going on. Denies any nausea or vomiting. No known family history of early colon cancer. - Related Data Allergies Allergy/AdvReac Type Severity Reaction Status Date / Time grass pollen Allergy Shortness Verified 04/30/20 22:44 of Breath pollen extracts Allergy Shortness Verified 04/30/20 22:44 of Breath aspirin Allergy Shortness Uncoded 04/30/20 22:44 of Breath Home Meds: Home Meds Dextroamphetamine/Amphetamine [Adderall] 30 mg PO BID 09/14/19 [History] Dupilumab [Dupixent] 300 mg IM ASDIRECTED 10/02/19 [History] Tiotropium [Spiriva HandiHaler] 1 inh INH DAILY 10/02/19 [History] ClonazePAM [KlonoPIN] 0.5 mg PO DAILY PRN 02/04/20 [History] Past Medical History - Past Health History Medical/Surgical History: Denies Medical/Surgical History HEENT History: Reports: None, Other (See Below) Other HEENT History: Nasal polyps Cardiovascular History: Reports: Other (See Below) Other Cardiovascular History: Palpitations Respiratory History: Reports: Asthma Gastrointestinal History: Reports: None Genitourinary History: Reports: None Musculoskeletal History: Reports: None Neurological History: Reports: None Psychiatric History: Reports: ADD, Anxiety Endocrine/Metabolic History: Reports: None Insulin Pump Model and Non Destructive Testing Supervisor: None Hematologic History: Reports: None Immunologic History: Reports: None Oncologic (Cancer) History: Reports: None Dermatologic History: Reports: None - Infectious Disease History Infectious Disease History: Reports: Chicken Pox Other Infectious Disease History: chldhood - Past Surgical History Head Surgeries/Procedures: Reports: None HEENT Surgical History: Reports: None, Naso-Sinus Surgery Cardiovascular Surgical History: Reports: None Respiratory Surgical History: Reports: None GI Surgical History: Reports: None Male Surgical History: Reports: None Neurological Surgical History: Reports: None Musculoskeletal Surgical History: Reports: Other (See Below) Other Musculoskeletal Surgeries/Procedures:: left knee surgery Oncologic Surgical History: Reports: None Dermatological Surgical History: Reports: None Social & Family History - Family History Family Medical History: No Pertinent Family History - Caffeine Use Caffeine Use: Reports: Tea ED ROS GENERAL - Review of Systems Review Of Systems: Comprehensive ROS is negative, except as noted in HPI. ED EXAM, GENERAL - Physical Exam Exam: See Below Exam Limited By: No Limitations General Appearance: Alert, WD/WN, No Apparent Distress Throat/Mouth: Normal Voice, No Airway Compromise Head: Atraumatic, Normocephalic Neck: Normal Inspection Respiratory/Chest: No Respiratory Distress, Lungs Clear, Normal Breath Sounds, No Accessory Muscle Use Cardiovascular: Normal Peripheral Pulses, Tachycardia GI/Abdominal: Soft, Non-Tender, No Distention Rectal (Males) Exam: Other (no external hemorrhoids noted, bright red blood around the anus, no internal hemorrhoids palpated, no pain with rectal exam, no anal fissures noted) Extremities: Normal Inspection Neurological: Alert, Normal Gait Psychiatric: Normal Affect, Normal Mood Skin Exam: Warm, Dry, Intact, Normal Color Course - Vital Signs Last Recorded V/S: Last Vital Signs Temp 98 F 04/30/20 22:45 Pulse 81 05/01/20 00:43 Resp 16 04/30/20 22:45 BP 137/76 05/01/20 00:43 Pulse Ox 98 05/01/20 00:43 - Orders/Labs/Meds Orders: Active Orders 24 hr Category Date Time Status Ang Abdomen [CT] Stat Exams 04/30/20 22:53 Taken Ang Pelvis [CT] Stat Exams 04/30/20 22:53 Taken Sodium Chloride 0.9% [Saline Flush] Med 04/30/20 22:53 Active 10 ml FLUSH ASDIRECTED PRN Sodium Chloride 0.9% [Saline Flush] Med 04/30/20 22:53 Active 2.5 ml FLUSH ASDIRECTED PRN Saline Lock Insert [OM.PC] Stat Oth 04/30/20 22:53 Ordered Medication Orders Sodium Chloride (Sodium Chloride 0.9% 2.5 Ml Syringe) 2.5 ml FLUSH ASDIRECTED PRN PRN Reason: Keep Vein Open Last Admin: 04/30/20 23:48 Dose: 2.5 ml Documented by: LIZZIE Sodium Chloride (Sodium Chloride 0.9% 10 Ml Syringe) 10 ml FLUSH ASDIRECTED PRN PRN Reason: Keep Vein Open Last Admin: 04/30/20 23:47 Dose: 10 ml Documented by: LIZZIE Labs: Laboratory Tests 04/30/20 04/30/20 04/30/20 Range/Units 23:00 23:00 23:00 WBC 7.45 (4.0-11.0) K/uL RBC 4.72 (4.50-5.90) M/uL Hgb 15.1 (13.0-17.0) g/dL Hct 42.5 (38.0-50.0) % MCV 90.0 (80.0-98.0) fL MCH 32.0 (27.0-32.0) pg MCHC 35.5 (31.0-37.0) g/dL RDW Std Deviation 43.2 (28.0-62.0) fl RDW Coeff of Aisha 13 (11.0-15.0) % Plt Count 295 (150-400) K/uL MPV 10.20 (7.40-12.00) fL Neut % (Auto) 46.9 L (48.0-80.0) % Lymph % (Auto) 26.6 (16.0-40.0) % [place] % (Auto) 6.7 (0.0-15.0) % Eos % (Auto) 18.9 H (0.0-7.0) % Baso % (Auto) 0.9 (0.0-1.5) % Neut # (Auto) 3.5 (1.4-5.7) K/uL Lymph # (Auto) 2.0 (0.6-2.4) K/uL [place] # (Auto) 0.5 (0.0-0.8) K/uL Eos # (Auto) 1.4 H (0.0-0.7) K/uL Baso # (Auto) 0.1 (0.0-0.1) K/uL Nucleated RBC % 0.0 /100WBC Nucleated RBCs # 0 K/uL INR 1.00 APTT 26.5 (18.6-31.3) SEC Lactate 1.0 (0.20-2.00) mmol/L Sodium (136-148) mmol/L Potassium (3.5-5.1) mmol/L Chloride (98-107) mmol/L Carbon Dioxide (21.0-32.0) mmol/L BUN (7.0-18.0) mg/dL Creatinine (0.8-1.3) mg/dL Est Cr Clr Drug Dosing mL/min Estimated GFR (MDRD) ml/min Glucose (74-106) mg/dL Calcium (8.5-10.1) mg/dL Total Bilirubin (0.2-1.0) mg/dL AST (15-37) IU/L ALT (14-63) IU/L Alkaline Phosphatase (46-116) U/L Total Protein (6.4-8.2) g/dL Albumin (3.4-5.0) g/dL Globulin (2.6-4.0) g/dL Albumin/Globulin Ratio (0.9-1.6) 04/30/20 Range/Units 23:00 WBC (4.0-11.0) K/uL RBC (4.50-5.90) M/uL Hgb (13.0-17.0) g/dL Hct (38.0-50.0) % MCV (80.0-98.0) fL MCH (27.0-32.0) pg MCHC (31.0-37.0) g/dL RDW Std Deviation (28.0-62.0) fl RDW Coeff of Aisha (11.0-15.0) % Plt Count (150-400) K/uL MPV (7.40-12.00) fL Neut % (Auto) (48.0-80.0) % Lymph % (Auto) (16.0-40.0) % [place] % (Auto) (0.0-15.0) % Eos % (Auto) (0.0-7.0) % Baso % (Auto) (0.0-1.5) % Neut # (Auto) (1.4-5.7) K/uL Lymph # (Auto) (0.6-2.4) K/uL [place] # (Auto) (0.0-0.8) K/uL Eos # (Auto) (0.0-0.7) K/uL Baso # (Auto) (0.0-0.1) K/uL Nucleated RBC % /100WBC Nucleated RBCs # K/uL INR APTT (18.6-31.3) SEC Lactate (0.20-2.00) mmol/L Sodium 139 (136-148) mmol/L Potassium 3.8 (3.5-5.1) mmol/L Chloride 100 (98-107) mmol/L Carbon Dioxide 27.4 (21.0-32.0) mmol/L BUN 20 H (7.0-18.0) mg/dL Creatinine 1.1 (0.8-1.3) mg/dL Est Cr Clr Drug Dosing 107.78 mL/min Estimated GFR (MDRD) > 60.0 ml/min Glucose 112 H (74-106) mg/dL Calcium 9.1 (8.5-10.1) mg/dL Total Bilirubin 0.2 (0.2-1.0) mg/dL AST 20 (15-37) IU/L ALT 30 (14-63) IU/L Alkaline Phosphatase 84 (46-116) U/L Total Protein 8.3 H (6.4-8.2) g/dL Albumin 3.9 (3.4-5.0) g/dL Globulin 4.4 H (2.6-4.0) g/dL Albumin/Globulin Ratio 0.9 (0.9-1.6) Meds: Medications Generic Name Dose Route Start Last Admin Trade Name Freq PRN Reason Stop Dose Admin Sodium Chloride 2.5 ml 04/30/20 22:53 04/30/20 23:48 Sodium Chloride 0.9% 2.5 Ml Syringe FLUSH 2.5 ml ASDIRECTED PRN Administration Keep Vein Open Sodium Chloride 10 ml 04/30/20 22:53 04/30/20 23:47 Sodium Chloride 0.9% 10 Ml Syringe FLUSH 10 ml ASDIRECTED PRN Administration Keep Vein Open Discontinued Medications Generic Name Dose Route Start Last Admin Trade Name Freq PRN Reason Stop Dose Admin Sodium Chloride 1,000 mls @ 999 mls/hr 04/30/20 23:17 04/30/20 23:47 Normal Saline IV 05/01/20 00:17 999 mls/hr .Bolus ONE Administration Iopamidol 100 ml 05/01/20 00:08 05/01/20 00:09 Iopamidol 755 Mg/Ml 500 Ml Multipack Bottle IVPUSH 05/01/20 00:09 100 ml ONETIME STA Administration - Re-Assessments/Exams Free Text/Narrative Re-Assessment/Exam: 04/30/20 23:16 We will get labs to ensure no anemia. Will get CTA of the abdomen pelvis to further characterize GI bleeding. Will give IV fluid bolus for tachycardia. We will follow up results and disposition accordingly. 05/01/20 00:39 Labs are grossly unremarkable. We will follow-up CT imaging and disposition accordingly 05/01/20 00:[address] imaging is unremarkable. No source of bleeding identified on CT imaging. No diverticular were noted. Patient's labs are stable and his tachycardia has resolved. Will discharge patient with GI follow-up as patient would likely benefit from colonoscopy to determine the etiology of the bleeding. Return precautions discussed at length and provided in patient educational handout. Departure - Departure Time of Disposition: 00:46 Disposition: Home, Self-Care 01 Condition: Good Clinical Impression: GI bleed Qualifiers: GI bleed type/associated pathology: unspecified gastrointestinal hemorrhage type Qualified Code(s): K92.2 - Gastrointestinal hemorrhage, unspecified - Discharge Information Instructions: Lower Gastrointestinal Bleeding Referrals: Andi Holland MD [Primary Care Provider] - Additional Instructions: Your labs are normal. There is no evidence of anemia or low blood count. Your CT does not show evidence of bleeding. Unfortunately many bleeds can be missed on a CT scan and you will need a colonoscopy to rule out dangerous causes of GI bleeding. We have placed you on our general surgery follow-up list so they should call you, but if for whatever reason they do not there information is also provided below. If you begin to experience heavy bleeding, dizziness, feel like you are about to pass out, or new abdominal pain you are encouraged to return to the emergency department for reassessment. [facility] General Surgery [address], [address] [place] [address] The following information is given to patients seen in the emergency department who are being discharged to home. This information is to outline your options for follow-up care. We provide all patients seen in our emergency department with a follow-up referral. The need for follow-up, as well as the timing and circumstances, are variable de pending upon the specifics of your emergency department visit. If you don't have a primary care physician on staff, we will provide you with a referral. We always advise you to contact your personal physician following an emergency department visit to inform them of the circumstance of the visit and for follow-up with them and/or the need for any referrals to a consulting specialist. The emergency department will also refer you to a specialist when appropriate. This referral assures that you have the opportunity for follow-up care with a specialist. All of these measure are taken in an effort to provide you with optimal care, which includes your follow-up. Under all circumstances we always encourage you to contact your private physician who remains a resource for coordinating your care. When calling for follow-up care, please make the office aware that this follow-up is from your recent emergency room visit. If for any reason you are refused follow-up, please contact the [facility] Emergency Department at and asked to speak to the emergency department charge nurse. Please follow up with your primary care physician. If you do not have a primary care physician, see below: [facility] Primary Care [address] [place] [id number] [address] [facility] - Pediatric Clinic [address] [place] [id number] Sepsis Event Note (ED) - Focused Exam Vital Signs: Vital Signs Temp Pulse Resp BP Pulse Ox 05/01/20 00:43 81 137/76 98 04/30/20 22:45 98 F 111 H 16 133/85 96 - My Orders Last 24 Hours: My Active Orders 04/30/20 22:53 Ang Abdomen [CT] Stat Ang Pelvis [CT] Stat Sodium Chloride 0.9% [Saline Flush] 10 ml FLUSH ASDIRECTED PRN Sodium Chloride 0.9% [Saline Flush] 2.5 ml FLUSH ASDIRECTED PRN Saline Lock Insert [OM.PC] Stat - Assessment/Plan Last 24 Hours: My Active Orders 04/30/20 22:53 Ang Abdomen [CT] Stat Ang Pelvis [CT] Stat Sodium Chloride 0.9% [Saline Flush] 10 ml FLUSH ASDIRECTED PRN Sodium Chloride 0.9% [Saline Flush] 2.5 ml FLUSH ASDIRECTED PRN Saline Lock Insert [OM.PC] Stat
[2020-04-30] MEDS ORDERED: Sodium Chloride 0.9% 10 ML Syringe FLUSH PRN (22:53)
[2020-04-30] MEDS ORDERED: Sodium Chloride 0.9% 2.5 ML Syringe FLUSH PRN (22:53)
[2020-04-30] MEDS ORDERED: Sodium Chloride 0.9% 1,000 ML IV ONE (23:17)
[2020-04-30 23:25] LABS: BLOOD UREA NITROGEN,BUN 20 mg/dL (7.0-18.0); CARBON DIOXIDE,CO2 27.4 mmol/L (21.0-32.0); CHLORIDE,CL 100 mmol/L (98-107); GLUCOSE RANDOM 112 mg/dL (74-106); POTASSIUM,K 3.8 mmol/L (3.5-5.1); SODIUM,NA 139 mmol/L (136-148)
[2020-05-01] MEDS ORDERED: Iopamidol 755 MG/ML 500 ML Multipack Bottle IVPUSH STA (00:08)
--- NOTE | 2020-05-01 00:59 | CT ---
INDICATION: Acute onset heavy rectal bleeding TECHNIQUE: CTA abdomen and pelvis acquired with 100 cc Isovue 370 IV contrast. COMPARISON: CT abdomen pelvis April 07, 2019 FINDINGS: Lower chest: Unremarkable. Liver: Unremarkable. Spleen: Unremarkable. Pancreas: Unremarkable. Gallbladder and bile ducts: Unremarkable. Adrenal glands: Unremarkable. Kidneys: Unremarkable. GI tract: No active bleeding identified. Appendix is normal. Vascular structures: Unremarkable. Lymph nodes: Unremarkable. Miscellaneous: Unremarkable. No free air or significant free fluid. Pelvic Organs: Unremarkable. Bones: Unremarkable for age. IMPRESSION: No active bleeding within the GI tract. No etiology seen to explain rectal bleeding. No acute intra-abdominal process identified. Please note that all CT scans at this facility use dose modulation, iterative reconstruction, and/or weight-based dosing when appropriate to reduce radiation dose to as low as reasonably achievable. Dictated by Pia Maravilla MD @ May 01 2020 12:45AM (Electronically Signed)
[2020-05-01 01:31] VITALS: BP 115/71; PULSE 69
--- NOTE | 2020-05-03 11:58 | CT ---
EXAM DATE: 04/30/20 PATIENT'S AGE: 29 Patient: JUDITH ERNANDEZ Facility: [facility] Site . Site : 1990 Study: CT-Abdomen Angio -05/01/2020 12:30:46 AM Ordering Physician: Jacob Spangler Final Report: INDICATION: Acute onset heavy rectal bleeding TECHNIQUE: CTA abdomen and pelvis acquired with 100 cc Isovue 370 IV contrast. COMPARISON: CT abdomen pelvis April 07, 2019 FINDINGS: Lower chest: Unremarkable. Liver: Unremarkable. Spleen: Unremarkable. Pancreas: Unremarkable. Gallbladder and bile ducts: Unremarkable. Adrenal glands: Unremarkable. Kidneys: Unremarkable. GI tract: No active bleeding identified. Appendix is normal. Vascular structures: Unremarkable. Lymph nodes: Unremarkable. Miscellaneous: Unremarkable. No free air or significant free fluid. Pelvic Organs: Unremarkable. Bones: Unremarkable for age. IMPRESSION: No active bleeding within the GI tract. No etiology seen to explain rectal bleeding. No acute intra-abdominal process identified. Please note that all CT scans at this facility use dose modulation, iterative reconstruction, and/or weight-based dosing when appropriate to reduce radiation dose to as low as reasonably achievable. Dictated by Pia Maravilla MD @ May 01 2020 12:45AM Signed by: Pia Maravilla MD @05/01/2020 12:57:59 AM (Electronic Signature) Report Signed by Proxy. [facility]
== END 2020-05-01 01:25 | disposition home or self-care (01) ==
LOC: MW.ED 22:35
DX: K92.2 Gastrointestinal hemorrhage, unspecified (principal); J45.909 Unspecified asthma, uncomplicated; Z79.899 Other long term (current) drug therapy; Z91.048 Other nonmedicinal substance allergy status; Z88.6 Allergy status to analgesic agent
CPT/HCPCS: 36415; 72191; 74175; 80053; 83605; 85025; 85610; 85730; 99284; J7030; Q9967; 99283

== ENCOUNTER 2020-09-30 04:31 | Emergency (ER) | payer BC, OTHER ==
--- NOTE | 2020-09-30 04:43 | EDM.PDOC ---
ED HPI GENERAL MEDICAL PROBLEM - General Chief Complaint: Chest Pain Stated Complaint: CHEST PAIN Time Seen by Provider: 09/30/20 04:36 - Related Data Allergies Allergy/AdvReac Type Severity Reaction Status Date / Time grass pollen Allergy Shortness Verified 09/30/20 04:40 of Breath pollen extracts Allergy Shortness Verified 09/30/20 04:40 of Breath aspirin Allergy Shortness Uncoded 09/30/20 04:40 of Breath Home Meds: Home Meds Dextroamphetamine/Amphetamine [Adderall] 30 mg PO BID 09/14/19 [History] Dupilumab [Dupixent] 300 mg IM ASDIRECTED 10/02/19 [History] Tiotropium [Spiriva HandiHaler] 1 inh INH DAILY 10/02/19 [History] ClonazePAM [KlonoPIN] 0.5 mg PO DAILY PRN 02/04/20 [History] Past Medical History - Past Health History Medical/Surgical History: Denies Medical/Surgical History HEENT History: Reports: None, Other (See Below) Other HEENT History: Nasal polyps Cardiovascular History: Reports: Other (See Below) Other Cardiovascular History: Palpitations Respiratory History: Reports: Asthma Gastrointestinal History: Reports: None Genitourinary History: Reports: None Musculoskeletal History: Reports: None Neurological History: Reports: None Psychiatric History: Reports: ADD, Anxiety Endocrine/Metabolic History: Reports: None Insulin Pump Model and Gate Person: None Hematologic History: Reports: None Immunologic History: Reports: None Oncologic (Cancer) History: Reports: None Dermatologic History: Reports: None - Infectious Disease History Infectious Disease History: Reports: Chicken Pox Other Infectious Disease History: chldhood - Past Surgical History Head Surgeries/Procedures: Reports: None HEENT Surgical History: Reports: None, Naso-Sinus Surgery Cardiovascular Surgical History: Reports: None Respiratory Surgical History: Reports: None GI Surgical History: Reports: None Male Surgical History: Reports: None Neurological Surgical History: Reports: None Musculoskeletal Surgical History: Reports: Other (See Below) Other Musculoskeletal Surgeries/Procedures:: left knee surgery Oncologic Surgical History: Reports: None Dermatological Surgical History: Reports: None Social & Family History - Family History Family Medical History: No Pertinent Family History - Caffeine Use Caffeine Use: Reports: Tea Course - Orders/Labs/Meds Orders: Active Orders 24 hr Category Date Time Status EKG Documentation Completion [RC] STAT Care 09/30/20 04:42 Ordered Chest 1V Frontal [CR] Stat Exams 09/30/20 04:42 Ordered BASIC METABOLIC PANEL,BMP [CHEM] Stat Lab 09/30/20 04:42 Ordered CBC WITH AUTO DIFF [HEME] Stat Lab 09/30/20 04:42 Ordered DRUG SCREEN, URINE [URCHEM] Stat Lab 09/30/20 04:42 Ordered TROPONIN I [CHEM] Stat Lab 09/30/20 04:42 Ordered Departure - Departure - My Orders Last 24 Hours: My Active Orders 09/30/20 04:42 EKG Documentation Completion [RC] STAT Chest 1V Frontal [CR] Stat BASIC METABOLIC PANEL,BMP [CHEM] Stat CBC WITH AUTO DIFF [HEME] Stat DRUG SCREEN, URINE [URCHEM] Stat TROPONIN I [CHEM] Stat - Assessment/Plan Last 24 Hours: My Active Orders 09/30/20 04:42 EKG Documentation Completion [RC] STAT Chest 1V Frontal [CR] Stat BASIC METABOLIC PANEL,BMP [CHEM] Stat CBC WITH AUTO DIFF [HEME] Stat DRUG SCREEN, URINE [URCHEM] Stat TROPONIN I [CHEM] Stat
--- NOTE | 2020-09-30 05:03 | EDM.PDOC ---
ED HPI GENERAL MEDICAL PROBLEM - General Chief Complaint: Chest Pain Stated Complaint: CHEST PAIN Time Seen by Provider: 09/30/20 04:36 Source of Information: Reports: Patient History Limitations: Reports: No Limitations - History of Present Illness INITIAL COMMENTS - FREE TEXT/NARRATIVE: Patient is a 29-year-old male presents today for left-sided chest pain. Patient is he was sleeping when the chest pain woke him up out of sleep. He denies anything making the pain better or worse states like a burning aching feeling. Pain does not radiate. The patient has multiple visits for chest pain in the past and seen atg architect as well. This feels similar to his normal chest pain. Patient also states he knows he has panic attack in the global to content before coming in as well. chest pain Pain Score (Numeric/FACES): 4 - Related Data Allergies Allergy/AdvReac Type Severity Reaction Status Date / Time grass pollen Allergy Shortness Verified 09/30/20 04:40 of Breath pollen extracts Allergy Shortness Verified 09/30/20 04:40 of Breath aspirin Allergy Shortness Uncoded 09/30/20 04:40 of Breath Home Meds: Home Meds Dextroamphetamine/Amphetamine [Adderall] 30 mg PO BID 09/14/19 [History] Dupilumab [Dupixent] 300 mg IM ASDIRECTED 10/02/19 [History] Tiotropium [Spiriva HandiHaler] 1 inh INH DAILY 10/02/19 [History] ClonazePAM [KlonoPIN] 0.5 mg PO DAILY PRN 02/04/20 [History] Fluticasone/Vilanterol [Breo Ellipta 200-25 MCG Inhalation Kit] 1 inhaler INH ASDIRECTED 09/30/20 [History] Past Medical History - Past Health History Medical/Surgical History: Denies Medical/Surgical History HEENT History: Reports: None, Other (See Below) Other HEENT History: Nasal polyps Cardiovascular History: Reports: Other (See Below) Other Cardiovascular History: Palpitations Respiratory History: Reports: Asthma Gastrointestinal History: Reports: None Genitourinary History: Reports: None Musculoskeletal History: Reports: None Neurological History: Reports: None Psychiatric History: Reports: ADD, Anxiety Endocrine/Metabolic History: Reports: None Insulin Pump Model and Band Tier: None Hematologic History: Reports: None Immunologic History: Reports: None Oncologic (Cancer) History: Reports: None Dermatologic History: Reports: None - Infectious Disease History Infectious Disease History: Reports: Chicken Pox Other Infectious Disease History: chldhood - Past Surgical History Head Surgeries/Procedures: Reports: None HEENT Surgical History: Reports: None, Naso-Sinus Surgery Cardiovascular Surgical History: Reports: None Respiratory Surgical History: Reports: None GI Surgical History: Reports: None Male Surgical History: Reports: None Neurological Surgical History: Reports: None Musculoskeletal Surgical History: Reports: Other (See Below) Other Musculoskeletal Surgeries/Procedures:: left knee surgery Oncologic Surgical History: Reports: None Dermatological Surgical History: Reports: None Social & Family History - Family History Family Medical History: No Pertinent Family History - Caffeine Use Caffeine Use: Reports: Tea - Recreational Drug Use Recreational Drug Use: No ED ROS GENERAL - Review of Systems Review Of Systems: See Below Constitutional: Reports: No Symptoms HEENT: Reports: No Symptoms Respiratory: Reports: No Symptoms Cardiovascular: Reports: Chest Pain Endocrine: Reports: No Symptoms GI/Abdominal: Reports: No Symptoms : Reports: No Symptoms Musculoskeletal: Reports: No Symptoms Skin: Reports: No Symptoms Neurological: Reports: No Symptoms Psychiatric: Reports: No Symptoms Hematologic/Lymphatic: Reports: No Symptoms Immunologic: Reports: No Symptoms ED EXAM, GENERAL - Physical Exam Exam: See Below Exam Limited By: No Limitations General Appearance: Alert, WD/WN, No Apparent Distress Eye Exam: Bilateral Eye: EOMI, PERRL Respiratory/Chest: No Respiratory Distress, Lungs Clear, Normal Breath Sounds Cardiovascular: Normal Peripheral Pulses, Regular Rate, Rhythm, No Edema GI/Abdominal: Normal Bowel Sounds, Soft, Non-Tender Extremities: Normal Inspection, Normal Range of Motion Neurological: Alert, Oriented, CN II-XII Intact, Normal Cognition, Normal Gait #1 Interpretation EKG Date: 09/30/20 Rhythm: NSR Rate (Beats/Min): 84 ST-T: Normal Course - Vital Signs Last Recorded V/S: Last Vital Signs Temp 97.5 F 09/30/20 04:35 Pulse 95 09/30/20 04:35 Resp 18 09/30/20 04:35 BP 133/76 09/30/20 04:35 Pulse Ox 97 09/30/20 04:35 - Orders/Labs/Meds Orders: Active Orders 24 hr Category Date Time Status EKG Documentation Completion [RC] STAT Care 08/12/21 04:42 Active Labs: Laboratory Tests 09/30/20 09/30/20 09/30/20 Range/Units 04:37 04:37 04:50 WBC 8.87 (4.0-11.0) K/uL RBC 4.79 (4.50-5.90) M/uL Hgb 15.3 (13.0-17.0) g/dL Hct 43.4 (38.0-50.0) % MCV 90.6 (80.0-98.0) fL MCH 31.9 (27.0-32.0) pg MCHC 35.3 (31.0-37.0) g/dL RDW Std Deviation 42.8 (28.0-62.0) fl RDW Coeff of Aisha 13 (11.0-15.0) % Plt Count 319 (150-400) K/uL MPV 10.50 (7.40-12.00) fL Neut % (Auto) 39.6 L (48.0-80.0) % Lymph % (Auto) 32.1 (16.0-40.0) % Steele % (Auto) 9.1 (0.0-15.0) % Eos % (Auto) 17.7 H (0.0-7.0) % Baso % (Auto) 1.5 (0.0-1.5) % Neut # (Auto) 3.5 (1.4-5.7) K/uL Lymph # (Auto) 2.9 H (0.6-2.4) K/uL Steele # (Auto) 0.8 (0.0-0.8) K/uL Eos # (Auto) 1.6 H (0.0-0.7) K/uL Baso # (Auto) 0.1 (0.0-0.1) K/uL Nucleated RBC % 0.0 /100WBC Nucleated RBCs # 0 K/uL Sodium 136 (136-148) mmol/L Potassium 3.6 (3.5-5.1) mmol/L Chloride 97 L (98-107) mmol/L Carbon Dioxide 25.1 (21.0-32.0) mmol/L BUN 33 H (7.0-18.0) mg/dL Creatinine 1.2 (0.8-1.3) mg/dL Est Cr Clr Drug Dosing 98.80 mL/min Estimated GFR (MDRD) > 60.0 ml/min Glucose 102 (74-106) mg/dL Calcium 9.3 (8.5-10.1) mg/dL Troponin I < 0.050 (0.000-0.056) ng/mL Urine Opiates Screen NEGATIVE (NEGATIVE) Ur Oxycodone Screen NEGATIVE (NEGATIVE) Urine Methadone Screen NEGATIVE (NEGATIVE) Ur Barbiturates Screen NEGATIVE (NEGATIVE) Ur Phencyclidine Scrn NEGATIVE (NEGATIVE) Ur Amphetamine Screen POSITIVE (NEGATIVE) U Methamphetamines Scrn NEGATIVE (NEGATIVE) U Benzodiazepines Scrn NEGATIVE (NEGATIVE) U Cocaine Metab Screen NEGATIVE (NEGATIVE) U Marijuana (THC) Screen NEGATIVE (NEGATIVE) - Re-Assessments/Exams Free Text/Narrative Re-Assessment/Exam: 09/30/20 05:32 Since labs EKG reviewed as well as x-ray patient be discharged home. Departure - Departure Time of Disposition: 05:33 Disposition: Home, Self-Care 01 Condition: Good Clinical Impression: Chest pain Qualifiers: Chest pain type: other chest pain Qualified Code(s): R07.89 - Other chest pain Instructions: Nonspecific Chest Pain, Adult, [id number] Forms: ED Department Discharge Additional Instructions: The following information is given to patients seen in the emergency department who are being discharged to home. This information is to outline your options for follow-up care. We provide all patients seen in our emergency department with a follow-up referral. The need for follow-up, as well as the timing and circumstances, are variable depending upon the specifics of your emergency department visit. If you don't have a primary care physician on staff, we will provide you with a referral. We always advise you to contact your personal physician following an emergency department visit to inform them of the circumstance of the visit and for follow-up with them and/or the need for any referrals to a consulting specialist. The emergency department will also refer you to a specialist when appropriate. This referral assures that you have the opportunity for follow-up care with a specialist. All of these measure are taken in an effort to provide you with optimal care, which includes your follow-up. Under all circumstances we always encourage you to contact your private physician who remains a resource for coordinating your care. When calling for follow-up care, please make the office aware that this follow-up is from your recent emergency room visit. If for any reason you are refused follow-up, please contact the [facility] Emergency Department at and asked to speak to the emergency department charge nurse. Please follow up with your primary care physician. If you do not have a primary care physician, see below: [facility] [address] [place] [id number] My [facility] [address] [place] [address] You were seen today for chest pain. We did EKG labs x-rays that were within normal limits. You have been seen before in the past for this chest pain in the past numerous amounts of times. Recommended you follow-up with a atg architect for this recurrent chest pain. If you have any other concerning signs or symptoms please return to ED. Sepsis Event Note (ED) - Focused Exam Vital Signs: Vital Signs Temp Pulse Resp BP Pulse Ox 09/30/20 04:35 97.5 F 95 18 133/76 97 - My Orders Last 24 Hours: My Active Orders 09/30/20 04:42 EKG Documentation Completion [RC] STAT - Assessment/Plan Last 24 Hours: My Active Orders 09/30/20 04:42 EKG Documentation Completion [RC] STAT Plan: Patient is a 29-year-old male presents today for left-sided chest pain. Patient has a heart score of 0. We will obtain EKG labs x-ray and reassess.
[2020-09-30 05:12] LABS: BLOOD UREA NITROGEN,BUN 33 mg/dL (7.0-18.0); CARBON DIOXIDE,CO2 25.1 mmol/L (21.0-32.0); CHLORIDE,CL 97 mmol/L (98-107); GLUCOSE RANDOM 102 mg/dL (74-106); POTASSIUM,K 3.6 mmol/L (3.5-5.1); SODIUM,NA 136 mmol/L (136-148)
--- NOTE | 2020-09-30 05:28 | CR ---
Indication: Chest pain. Technique: Chest 1 view Comparison: Chest x-ray 03/03/2020 Findings/Impression: Cardiovascular and mediastinum: Heart size and vasculature are normal in caliber and appearance. Lungs and pleural space: Lungs are clear. No sign of infiltrate or mass. No sign of pleural effusion. No pneumothorax. Bones and soft tissues: No acute findings. Dictated by Chet Phillips MD @ 09/30/2020 5:27:[address] Chet Phillips @ Sep 30 2020 5:27AM
[2020-09-30 06:02] VITALS: BP 115/70; PULSE 90
--- NOTE | 2020-10-01 19:13 | PCM.EKG ---
#1 Interpretation EKG Date: 09/30/20 Time: 04:32 Rhythm: NSR Rate (Beats/Min): 84 ST-T: Normal
== END 2020-09-30 05:55 | disposition home or self-care (01) ==
LOC: MW.ED 04:31
DX: R07.89 Other chest pain (principal); Z88.8 Allergy status to other drugs, medicaments and biological substances; Z91.09 Other allergy status, other than to drugs and biological substances
CPT/HCPCS: 36415; 71045; 71045-26; 80048; 80305-QW; 84484; 85025; 93005; 99285-25

== ENCOUNTER 2020-10-14 23:14 | Emergency (ER) | payer OTHER ==
[2020-10-14] MEDS ORDERED: Sodium Chloride 0.9% 2.5 ML Syringe FLUSH PRN (23:29)
[2020-10-14] MEDS ORDERED: Sodium Chloride 0.9% 10 ML Syringe FLUSH PRN (23:29)
[2020-10-14] MEDS ORDERED: LORazepam 2 MG/ML SDV IVPUSH ONE (23:29)
[2020-10-14] MEDS ORDERED: diphenhydrAMINE 50 MG/ML SDV IVPUSH ONE (23:29)
[2020-10-14] MEDS ORDERED: Haloperidol Lactate 5 MG/ML SDV IM ONE (23:31)
--- NOTE | 2020-10-14 23:34 | EDM.PDOC ---
ED HPI GENERAL MEDICAL PROBLEM - General Stated Complaint: CONSUMED BAKING TO MUCH BAKING SODA Time Seen by Provider: 10/14/20 23:29 - History of Present Illness INITIAL COMMENTS - FREE TEXT/NARRATIVE: History of present illness: [] The patient had acid indigestion. He has had it before. He takes famotidine. He is due for a scope soon. He was having a hard time today and his friend told him to take baking soda. He took 3 tablespoons. Then he had a dry mouth headache and began to worry that he had too much. He was feeling pretty sick in his stomach. He here his family called poison control and they told him to get his electrolytes checked. He came in for that reason but feels better now after drinking tons of water The patient called poison control. We verified with poison control that they think this amount of bicarb could cause him to be hyponatremic to the point of symptoms or arrhythmia. They want an EKG BMP and a BMP in 2 hours with fluids in the meantime. Review of systems: As per history of present illness and below otherwise all systems reviewed and negative. Past medical history: As per history of present illness and as reviewed below otherwise noncontributory. Surgical history: As per history of present illness and as reviewed below otherwise noncontributory. Social history: No reported history of drug or alcohol abuse. Family history: As per history of present illness and as reviewed below otherwise n oncontributory. Physical exam: Constitutional - well developed, well-nourished and in no acute distress HEENT - normocephalic, no evidence of trauma - external nose and mouth normal - no mass in neck and no JVD - mucosae moist EYES - full EOM, PERRL, no icterus - no evidence of inflammation, injection, or drainage Respiratory - no respiratory distress, equal bilateral expansion, lungs clear to auscultation and no abnormal lung sounds Cardiovascular - Regular Rhythm with S1 and S2 appreciated and no murmur, gallop or rub. GI - abdomen soft without distension or organomegaly - normal bowel sounds - no guard or rebound Musculoskeletal no gross deformity of long bones or joints - no tenderness, swelling or edema Neurologic - Alert and oriented times four - CN II-XII grossly intact - motor sensory and coordination symmetrically normal Psychiatric - appropriate mood and affect with normal thought content Hematologic - No petechiae or purpura - mucosa appropriate color and sclera not pale - normal nail bed color and refill Integument - no rash or evidence of trauma - normal turgor Diagnostics: [] Therapeutics: [] Impression: [] Plan: [] Definitive disposition and diagnosis as appropriate pending reevaluation and review of above. head and back Pain Score (Numeric/FACES): 5 - Related Data Allergies Allergy/AdvReac Type Severity Reaction Status Date / Time grass pollen Allergy Shortness Verified 10/14/20 23:43 of Breath pollen extracts Allergy Shortness Verified 10/14/20 23:43 of Breath aspirin Allergy Shortness Uncoded 10/14/20 23:43 of Breath Home Meds: Home Meds Dextroamphetamine/Amphetamine [Adderall] 30 mg PO BID 09/14/19 [History] Dupilumab [Dupixent] 300 mg IM ASDIRECTED 10/02/19 [History] Tiotropium [Spiriva HandiHaler] 1 inh INH DAILY 10/02/19 [History] ClonazePAM [KlonoPIN] 0.5 mg PO DAILY PRN 02/04/20 [History] Fluticasone/Vilanterol [Breo Ellipta 200-25 MCG Inhalation Kit] 1 inhaler INH ASDIRECTED 09/30/20 [History] Past Medical History - Past Health History Medical/Surgical History: Denies Medical/Surgical History HEENT History: Reports: None, Other (See Below) Other HEENT History: Nasal polyps Cardiovascular History: Reports: Other (See Below) Other Cardiovascular History: Palpitations Respiratory History: Reports: Asthma Gastrointestinal History: Reports: None Genitourinary History: Reports: None Musculoskeletal History: Reports: None Neurological History: Reports: None Psychiatric History: Reports: ADD, Anxiety Endocrine/Metabolic History: Reports: None Insulin Pump Model and Preschool Assistant Teacher: None Hematologic History: Reports: None Immunologic History: Reports: None Oncologic (Cancer) History: Reports: None Dermatologic History: Reports: None - Infectious Disease History Infectious Disease History: Reports: Chicken Pox Other Infectious Disease History: chldhood - Past Surgical History Head Surgeries/Procedures: Reports: None HEENT Surgical History: Reports: None, Naso-Sinus Surgery Cardiovascular Surgical History: Reports: None Respiratory Surgical History: Reports: None GI Surgical History: Reports: None Male Surgical History: Reports: None Neurological Surgical History: Reports: None Musculoskeletal Surgical History: Reports: Other (See Below) Other Musculoskeletal Surgeries/Procedures:: left knee surgery Oncologic Surgical History: Reports: None Dermatological Surgical History: Reports: None Social & Family History - Family History Family Medical History: No Pertinent Family History - Caffeine Use Caffeine Use: Reports: Tea ED ROS GENERAL - Review of Systems Review Of Systems: Comprehensive ROS is negative, except as noted in HPI. ED EXAM, GENERAL - Physical Exam Exam: See Below Free Text/Narrative:: My physical exam is in the HPI #1 Interpretation EKG Interpretation Comments: EKG dated 10/15/2020 time 00 23 hours rhythm sinus rhythm rate 63 HI interval 148 QT duration 425 axis -30 ST elevation consistent with early repole and QRS normal except for a nonspecific intraventricular conduction delay. No prior for comparison impression no acute injury Course - Vital Signs Last Recorded V/S: Last Vital Signs Temp 36.7 C 10/15/20 02:47 Pulse 64 10/15/20 02:47 Resp 18 10/15/20 02:47 BP 111/66 10/15/20 02:47 Pulse Ox 97 10/15/20 02:47 - Orders/Labs/Meds Orders: Active Orders 24 hr Category Date Time Status BASIC METABOLIC PANEL,BMP [CHEM] Routine Lab 10/15/20 02:06 Received Dextrose 5%-0.45% NaCl [Dextrose 5%-1/2 NS] 1,000 ml Med 10/15/20 00:15 Active IV ASDIRECTED Sodium Chloride 0.9% [Saline Flush] Med 10/15/20 00:09 Active 10 ml FLUSH ASDIRECTED PRN Sodium Chloride 0.9% [Saline Flush] Med 10/15/20 00:09 Active 2.5 ml FLUSH ASDIRECTED PRN Saline Lock Insert [OM.PC] Stat Oth 10/15/20 00:09 Ordered Medication Orders Dextrose/Sodium Chloride (Dextrose 5%-1/2 Ns) 1,000 mls @ 100 mls/hr IV ASDIRECTED SHELBY Last Admin: 10/15/20 00:15 Dose: 100 mls/hr Documented by: SHIV Sodium Chloride (Sodium Chloride 0.9% 10 Ml Syringe) 10 ml FLUSH ASDIRECTED PRN PRN Reason: Keep Vein Open Last Admin: 10/15/20 00:15 Dose: 10 ml Documented by: SHIV Sodium Chloride (Sodium Chloride 0.9% 2.5 Ml Syringe) 2.5 ml FLUSH ASDIRECTED PRN PRN Reason: Keep Vein Open Last Admin: 10/15/20 00:15 Dose: 2.5 ml Documented by: SHIV Labs: Laboratory Tests 10/15/20 10/15/20 Range/Units 00:10 02:06 VBG pH 7.46 H (7.31-7.41) VBG pCO2 48 (41-51) mmHG VBG pO2 < 30 mmHG VBG HCO3 34 H (23-28) mEq/L VBG Total CO2 30 H (24-29) mmol/L VBG Base Excess 8.2 H (-2.0-3.0) Sodium 141 (136-148) mmol/L Potassium 3.2 L (3.5-5.1) mmol/L Chloride 101 (98-107) mmol/L Carbon Dioxide 34.7 H (21.0-32.0) mmol/L BUN 22 H (7.0-18.0) mg/dL Creatinine 1.2 (0.8-1.3) mg/dL Est Cr Clr Drug Dosing 98.80 mL/min Estimated GFR (MDRD) > 60.0 ml/min Glucose 87 (74-106) mg/dL Calcium 8.5 (8.5-10.1) mg/dL Meds: Medications Generic Name Dose Route Start Last Admin Trade Name Freq PRN Reason Stop Dose Admin Dextrose/Sodium Chloride 1,000 mls @ 100 mls/hr 10/15/20 00:15 10/15/20 00:15 Dextrose 5%-1/2 Ns IV 100 mls/hr ASDIRECTED SHELBY Administration Sodium Chloride 10 ml 10/15/20 00:09 10/15/20 00:15 Sodium Chloride 0.9% 10 Ml Syringe FLUSH 10 ml ASDIRECTED PRN Administration Keep Vein Open Sodium Chloride 2.5 ml 10/15/20 00:09 10/15/20 00:15 Sodium Chloride 0.9% 2.5 Ml Syringe FLUSH 2.5 ml ASDIRECTED PRN Administration Keep Vein Open Discontinued Medications Generic Name Dose Route Start Last Admin Trade Name Freq PRN Reason Stop Dose Admin Diphenhydramine HCl 25 mg 10/14/20 23:29 10/14/20 23:56 Diphenhydramine 50 Mg/Ml Sdv IVPUSH 10/14/20 23:30 Not Given ONETIME ONE Haloperidol Lactate 2 mg 10/14/20 23:31 10/14/20 23:56 Haloperidol Lactate 5 Mg/Ml Sdv IM 10/14/20 23:32 Not Given ONETIME ONE Dextrose/Sodium Chloride 1,000 mls @ 125 mls/hr 10/15/20 00:15 Dextrose 5%-Normal Saline IV ASDIRECTED SHELBY Lorazepam 1 mg 10/14/20 23:29 10/14/20 23:55 Lorazepam 2 Mg/Ml Sdv IVPUSH 10/14/20 23:30 Not Given ONETIME ONE Sodium Chloride 10 ml 10/14/20 23:29 Sodium Chloride 0.9% 10 Ml Syringe FLUSH ASDIRECTED PRN Keep Vein Open Sodium Chloride 2.5 ml 10/14/20 23:29 Sodium Chloride 0.9% 2.5 Ml Syringe FLUSH ASDIRECTED PRN Keep Vein Open Departure - Departure Time of Disposition: 02:52 Disposition: Home, Self-Care 01 Condition: Good Clinical Impression: Ingestion of nontoxic substance - Discharge Information Referrals: PCP,None [Primary Care Provider] - Additional Instructions: From now on Use Tums or Maalox or proved antiacids as needed. [facility] [address] [place] [address] [place] [address] The following information is given to patients seen in the emergency department who are being discharged to home. This information is to outline your options for follow-up care. We provide all patients seen in our emergency department with a follow-up referral. The need for follow-up, as well as the timing and circumstances, are variable d epending upon the specifics of your emergency department visit. If you don't have a primary care physician on staff, we will provide you with a referral. We always advise you to contact your personal physician following an emergency department visit to inform them of the circumstance of the visit and for follow-up with them and/or the need for any referrals to a consulting specialist. The emergency department will also refer you to a specialist when appropriate. This referral assures that you have the opportunity for follow-up care with a specialist. All of these measure are taken in an effort to provide you with optimal care, which includes your follow-up. Under all circumstances we always encourage you to contact your private physician who remains a resource for coordinating your care. When calling for follow-up care, please make the office aware that this follow-up is from your recent emergency room visit. If for any reason you are refused follow-up, please contact the [facility] Emergency Department at and asked to speak to the emergency department charge nurse. Sepsis Event Note (ED) - Focused Exam Vital Signs: Vital Signs Temp Pulse Resp BP Pulse Ox 10/15/20 02:47 36.7 C 64 18 111/66 97 10/15/20 01:54 36.7 C 74 18 98/48 L 97 10/15/20 01:18 68 16 117/69 97 10/15/20 00:33 68 18 119/68 98 10/14/20 23:39 36.8 C 98 18 124/77 98 - My Orders Last 24 Hours: My Active Orders 10/15/20 00:09 Sodium Chloride 0.9% [Saline Flush] 10 ml FLUSH ASDIRECTED PRN Sodium Chloride 0.9% [Saline Flush] 2.5 ml FLUSH ASDIRECTED PRN Saline Lock Insert [OM.PC] Stat 10/15/20 00:15 Dextrose 5%-0.45% NaCl [Dextrose 5%-1/2 NS] 1,000 ml IV ASDIRECTED 10/15/20 02:06 BASIC METABOLIC PANEL,BMP [CHEM] Routine - Assessment/Plan Last 24 Hours: My Active Orders 10/15/20 00:09 Sodium Chloride 0.9% [Saline Flush] 10 ml FLUSH ASDIRECTED PRN Sodium Chloride 0.9% [Saline Flush] 2.5 ml FLUSH ASDIRECTED PRN Saline Lock Insert [OM.PC] Stat 10/15/20 00:15 Dextrose 5%-0.45% NaCl [Dextrose 5%-1/2 NS] 1,000 ml IV ASDIRECTED 10/15/20 02:06 BASIC METABOLIC PANEL,BMP [CHEM] Routine
[2020-10-15] MEDS ORDERED: Sodium Chloride 0.9% 10 ML Syringe FLUSH PRN (00:09)
[2020-10-15] MEDS ORDERED: Sodium Chloride 0.9% 2.5 ML Syringe FLUSH PRN (00:09)
[2020-10-15] MEDS ORDERED: Dextrose 5%-0.45% NaCl 1,000 ML IV SCH (00:15)
[2020-10-15] MEDS ORDERED: Dextrose 5%-0.9% NaCl 1,000 ML IV SCH (00:15)
[2020-10-15 00:37] LABS: BLOOD UREA NITROGEN,BUN 22 mg/dL (7.0-18.0); CARBON DIOXIDE,CO2 34.7 mmol/L (21.0-32.0); CHLORIDE,CL 101 mmol/L (98-107); GLUCOSE RANDOM 87 mg/dL (74-106); POTASSIUM,K 3.2 mmol/L (3.5-5.1); SODIUM,NA 141 mmol/L (136-148)
[2020-10-15 02:34] LABS: BLOOD UREA NITROGEN,BUN 20 mg/dL (7.0-18.0); POTASSIUM,K 3.3 mmol/L (3.5-5.1)
[2020-10-15 02:59] LABS: CARBON DIOXIDE,CO2 31.7 mmol/L (21.0-32.0); CHLORIDE,CL 98 mmol/L (98-107); GLUCOSE RANDOM 95 mg/dL (74-106); SODIUM,NA 140 mmol/L (136-148)
[2020-10-15 03:01] VITALS: BP 114/72; PULSE 68
== END 2020-10-15 03:01 | disposition home or self-care (01) ==
LOC: MW.ED 23:14
DX: T50.991A Poisoning by other drugs, medicaments and biological substances, accidental (unintentional), initial encounter (principal); J45.909 Unspecified asthma, uncomplicated; Z91.048 Other nonmedicinal substance allergy status; Z88.8 Allergy status to other drugs, medicaments and biological substances; Z79.899 Other long term (current) drug therapy
CPT/HCPCS: 36415; 80048; 82803; 93005; 99284; J7042

== ENCOUNTER 2021-10-14 20:55 | Emergency (ER) | payer BC, OTHER | END 2021-10-15 | disposition left against medical advice (07) | LOC: MW.ED 20:55 | DX: Z53.21 Procedure and treatment not carried out due to patient leaving prior to being seen by health care provider (principal) ==

== ENCOUNTER 2021-11-23 15:00 | Emergency (ER) | payer BC ==
[2021-12-29 14:17] LABS: BLOOD UREA NITROGEN,BUN 18 mg/dL (7.0-18.0); CARBON DIOXIDE,CO2 28.9 mmol/L (21.0-32.0); CHLORIDE,CL 102 mmol/L (98-107); GLUCOSE RANDOM 97 mg/dL (74-106); POTASSIUM,K 3.8 mmol/L (3.5-5.1); SODIUM,NA 139 mmol/L (136-148)
[2021-12-29 14:18] LABS: ESTIMATED GFR 75 mL/min (>60); LIPASE 104 U/L (73-393)
== END 2021-11-23 19:45 | disposition left against medical advice (07) ==
LOC: MW.ED 15:00
DX: Z53.21 Procedure and treatment not carried out due to patient leaving prior to being seen by health care provider (principal)
CPT/HCPCS: 36415; 80053; 83690; 84484; 85025

== ENCOUNTER 2022-02-02 09:37 | Emergency (ER) | payer BC ==
[2022-02-02 12:23] VITALS: BP 125/65; PULSE 67
== END 2022-02-02 12:21 | disposition home or self-care (01) ==
LOC: MW.ED 09:37
DX: R05.1 Acute cough (principal); Z91.048 Other nonmedicinal substance allergy status; Z88.6 Allergy status to analgesic agent
CPT/HCPCS: 71046; 71046-26; 99285

== ENCOUNTER 2022-07-09 15:44 | Emergency (ER) | payer SELFPAY ==
[2022-07-09 16:51] VITALS: BP 131/67; PULSE 79
== END 2022-07-09 17:12 | disposition home or self-care (01) ==
LOC: MW.ED 15:44
DX: S91.332A Puncture wound without foreign body, left foot, initial encounter (principal); J45.909 Unspecified asthma, uncomplicated; Z88.8 Allergy status to other drugs, medicaments and biological substances; Z91.048 Other nonmedicinal substance allergy status; W45.0XXA Nail entering through skin, initial encounter
CPT/HCPCS: 99283

== ENCOUNTER 2022-10-01 03:45 | Emergency (ER) | payer BC ==
[2022-10-01 07:45] VITALS: BP 136/72; PULSE 86
== END 2022-10-01 07:45 | disposition home or self-care (01) ==
LOC: MW.ED 03:45
DX: T37.4X1A Poisoning by anthelminthics, accidental (unintentional), initial encounter (principal); J45.909 Unspecified asthma, uncomplicated; Z79.82 Long term (current) use of aspirin; Z91.09 Other allergy status, other than to drugs and biological substances
CPT/HCPCS: 99283

== ENCOUNTER 2022-10-19 20:11 | Emergency (ER) | payer SELFPAY ==
[2022-10-19] MEDS ORDERED: Sodium Chloride 0.9% 1,000 ML IV ONE (21:15)
[2022-10-19 21:42] LABS: BASOPHILS ABSOLUTE AUTO 0.1 K/uL (0.0-0.1); BASOPHILS PERCENT AUTO 0.7 % (0.0-1.5); EOSINOPHILS ABSOLUTE AUTO 0.9 K/uL (0.0-0.7); EOSINOPHILS PERCENT AUTO 13.1 % (0.0-7.0); HEMATOCRIT 42.2 % (38.0-50.0); HEMOGLOBIN 14.4 g/dL (13.0-17.0); LYMPHOCYTES ABSOLUTE AUTO 1.8 K/uL (0.6-2.4); LYMPHOCYTES PERCENT AUTO 25.9 % (16.0-40.0); MEAN CORPUSCULAR HEMOGLOBIN 31.1 pg (27.0-32.0); MEAN CORPUSCULAR HGB CONC 34.1 g/dL (31.0-37.0); MEAN CORPUSCULAR VOLUME 91.1 fL (80.0-98.0); MONOCYTES ABSOLUTE AUTO 0.9 K/uL (0.0-0.8); MONOCYTES PERCENT AUTO 13.8 % (0.0-15.0); NEUTROPHILS ABSOLUTE AUTO 3.2 K/uL (1.4-5.7); NEUTROPHILS PERCENT AUTO 46.5 % (48.0-80.0); NRBC ABSOLUTE 0 K/uL; PLATELET COUNT,PLT 274 K/uL (150-400); RED BLOOD CELL COUNT 4.63 M/uL (4.50-5.90)
[2022-10-19 21:44] LABS: APPEARANCE,URINE CLEAR; BILIRUBIN,URINE NEGATIVE (NEGATIVE); COLOR,URINE YELLOW; GLUCOSE,URINE NEGATIVE (NEGATIVE); KETONES,URINE NEGATIVE (NEGATIVE); LEUKOCYTE ESTERASE,URINE NEGATIVE (NEGATIVE); NITRITE,URINE NEGATIVE (NEGATIVE); OCCULT BLOOD,URINE NEGATIVE (NEGATIVE); PH,URINE 5.5 (5.0-8.0); PROTEIN,URINE NEGATIVE (NEGATIVE); UROBILINOGEN,URINE 0.2 EU/dL (<2.0)
[2022-10-19 22:02] LABS: A/G RATIO 0.9 (0.9-1.6); ALBUMIN 3.7 g/dL (3.4-5.0); BILIRUBIN TOTAL 0.4 mg/dL (0.2-1.0); CARBON DIOXIDE,CO2 27.1 mmol/L (21.0-32.0); CREATININE 1.3 mg/dL (0.8-1.3); EST CRCL DRUG DOSING (CG) 89.54 mL/min; POTASSIUM,K 3.6 mmol/L (3.5-5.1); PROTEIN TOTAL,TP 7.9 g/dL (6.4-8.2)
[2022-10-19] MEDS ORDERED: Iopamidol 755 MG/ML 500 ML Multipack Bottle IVPUSH ONE (22:14)
[2022-10-19 23:36] VITALS: BP 120/75; PULSE 71
== END 2022-10-19 23:34 | disposition home or self-care (01) ==
LOC: MW.ED 20:11
DX: K59.00 Constipation, unspecified (principal); K52.9 Noninfective gastroenteritis and colitis, unspecified; J45.909 Unspecified asthma, uncomplicated; Z91.048 Other nonmedicinal substance allergy status; Z88.6 Allergy status to analgesic agent
CPT/HCPCS: 36415; 74177; 80053; 81003; 83690; 85025; 96360; 99284; J7030; Q9967

== ENCOUNTER 2023-06-16 21:20 | Emergency (ER) | payer OTHER ==
[2023-06-16 21:32] LABS: BASOPHILS ABSOLUTE AUTO 0.07 K/uL (0.00-0.20); BASOPHILS PERCENT AUTO 0.9 % (0.0-1.0); EOSINOPHILS ABSOLUTE AUTO 0.63 K/uL (0.00-0.45); EOSINOPHILS PERCENT AUTO 8.4 % (0.0-6.0); HEMATOCRIT 44.5 % (42.0-52.0); HEMOGLOBIN 15.9 g/dL (14.0-18.0); IMMATURE GRAN ABSOLUTE AUTO 0.01 K/uL (0.00-0.05); IMMATURE GRAN PERCENT AUTO 0.1 % (0.0-0.4); LYMPHOCYTES ABSOLUTE AUTO 2.93 K/uL (1.00-4.80); LYMPHOCYTES PERCENT AUTO 39.1 % (24.0-44.0); MEAN CORPUSCULAR HEMOGLOBIN 31.8 pg (28.0-32.0); MEAN CORPUSCULAR HGB CONC 35.7 g/dL (32.0-36.0); MONOCYTES ABSOLUTE AUTO 0.85 K/uL (0.00-0.80); MONOCYTES PERCENT AUTO 11.3 % (0.0-8.0); NEUTROPHILS ABSOLUTE AUTO 3.01 K/uL (1.80-7.70); NEUTROPHILS PERCENT AUTO 40.2 % (41.0-71.0); PLATELET COUNT,PLT 340 K/uL (150-400)
[2023-06-16] MEDS: Sodium Chloride 0.9% 1,000 ML IV ONE ×3 (21:38→22:22)
[2023-06-16 21:41] LABS: BASE EXCESS VENOUS 1.3 (-2.0-3.0); BICARBONATE,VENOUS 22 mEQ/mL (22-28); PCO2 VENOUS 24 mmHG (41-51); PH,VENOUS 7.56 (7.31-7.41)
[2023-06-16 21:44] LABS: PO2 VENOUS < 30 mmHG (80-100)
[2023-06-16 22:04] LABS: A/G RATIO 1.1 (0.9-1.6); ALANINE AMINOTRANSFERASE,ALT 21 IU/L (14-63); ALBUMIN 4.5 g/dL (3.4-5.0); ALKALINE PHOSPHATASE 94 U/L (46-116); ASPARTATE AMNIOTRANSFERASE,AST 20 IU/L (15-37); BLOOD UREA NITROGEN,BUN 14 mg/dL (7.0-18.0); CALCIUM 10.2 mg/dL (8.5-10.1); CARBON DIOXIDE,CO2 22.2 mmol/L (21.0-32.0); CHLORIDE,CL 99 mmol/L (98-107); CREATININE 1.5 mg/dL (0.8-1.3); EST CRCL DRUG DOSING (CG) 76.88 mL/min; GLUCOSE RANDOM 104 mg/dL (74-106); PROTEIN TOTAL,TP 8.5 g/dL (6.4-8.2); SODIUM,NA 139 mmol/L (136-148); TSH ULTRASENSITIVE 1.61 uIU/mL (0.36-3.74)
[2023-06-16 22:07] LABS: ESTIMATED GFR 63 mL/min (>60); ETHANOL BLOOD MEDICAL < 3.0 mg/dL
[2023-06-16] MEDS: Potassium Chloride 20 MEQ Tab.ER PO ONE (22:22)
[2023-06-17 00:08] LABS: AMPHETAMINES SCREEN, URINE PRESUMPTIVE POSITIVE (CUTOFF=500); BARBITURATE SCREEN,URINE NEGATIVE (CUTOFF=200); BENZODIAZEPINES SCREEN,URINE PRESUMPTIVE POSITIVE (CUTOFF=150); BUPRENORPHINE SCREEN,URINE NEGATIVE (CUTOFF=10); METHADONE SCREEN, URINE NEGATIVE (CUTOFF=200); METHAMPHETAMINES SCREEN, URINE NEGATIVE (CUTOFF=500); OXYCODONE SCREEN,URINE NEGATIVE (CUT0FF=100); PCP SCREEN,URINE NEGATIVE (CUTOFF=25); THC SCREEN,URINE 20 NG/ML PRESUMPTIVE POSITIVE (CUTOFF=50)
[2023-06-17 00:11] VITALS: PULSE 82
[2023-06-17 00:28] VITALS: BP 136/78
== END 2023-06-17 00:27 | disposition home or self-care (01) ==
LOC: MW.ED 21:20
DX: F41.0 Panic disorder [episodic paroxysmal anxiety] (principal); E86.0 Dehydration; Z91.018 Allergy to other foods; Z88.6 Allergy status to analgesic agent; Z75.8 Other problems related to medical facilities and other health care
CPT/HCPCS: 36415; 80053; 80305; 80307; 82550; 82803; 84443; 84484; 85025; 93005; 96361; 96374; 99285; A9270; J3360; J7030; 93010; 99284

== ENCOUNTER 2023-06-18 15:10 | Emergency (ER) | payer BC ==
[2023-06-18 15:21] VITALS: BP 119/70; PULSE 97
== END 2023-06-18 15:56 | disposition home or self-care (01) ==
LOC: MW.ED 15:10
DX: R07.9 Chest pain, unspecified (principal); Z79.899 Other long term (current) drug therapy; Z88.6 Allergy status to analgesic agent; Z91.048 Other nonmedicinal substance allergy status; Z75.8 Other problems related to medical facilities and other health care
CPT/HCPCS: 93005; 93010; 99282; 99284-25

== ENCOUNTER 2023-08-10 22:49 | Emergency (ER) | payer BC ==
[2023-08-10 23:00] VITALS: BP 131/95; PULSE 102
== END 2023-08-10 23:14 | disposition left against medical advice (07) ==
LOC: MW.ED 22:49
DX: Z53.21 Procedure and treatment not carried out due to patient leaving prior to being seen by health care provider (principal)
CPT/HCPCS: 93005

== ENCOUNTER 2023-10-21 01:02 | Emergency (ER) | payer BC ==
[2023-10-21] MEDS ORDERED: Sodium Chloride 0.9% 20 ML SDV IV PRN (01:16)
[2023-10-21] MEDS: Pantoprazole 80 MG in Sodium Chloride 0.9% 10 ML IVPUSH ONE (01:23)
[2023-10-21] MEDS: Sodium Chloride 0.9% 10 ML Syringe FLUSH PRN (01:23)
[2023-10-21] MEDS: Ondansetron 4 MG/2 ML SDV IVPUSH ONE (01:23)
[2023-10-21] MEDS: Sodium Chloride 0.9% 1,000 ML IV ONE (01:23)
[2023-10-21] MEDS: Sodium Chloride 0.9% 2.5 ML Syringe FLUSH PRN (01:24)
[2023-10-21 01:30] LABS: BASOPHILS ABSOLUTE AUTO 0.08 K/uL (0.00-0.20); BASOPHILS PERCENT AUTO 1.1 % (0.0-1.0); EOSINOPHILS ABSOLUTE AUTO 0.77 K/uL (0.00-0.45); EOSINOPHILS PERCENT AUTO 10.9 % (0.0-6.0); HEMATOCRIT 43.1 % (42.0-52.0); HEMOGLOBIN 15.1 g/dL (14.0-18.0); IMMATURE GRAN ABSOLUTE AUTO 0.01 K/uL (0.00-0.05); IMMATURE GRAN PERCENT AUTO 0.1 % (0.0-0.4); LYMPHOCYTES ABSOLUTE AUTO 2.55 K/uL (1.00-4.80); LYMPHOCYTES PERCENT AUTO 36.1 % (24.0-44.0); MEAN CORPUSCULAR HEMOGLOBIN 31.6 pg (28.0-32.0); MEAN CORPUSCULAR VOLUME 90.2 fL (83.0-99.0); MEAN PLATELET VOLUME 9.9 fL (9.4-12.4); MONOCYTES ABSOLUTE AUTO 0.77 K/uL (0.00-0.80); MONOCYTES PERCENT AUTO 10.9 % (0.0-8.0); NEUTROPHILS ABSOLUTE AUTO 2.88 K/uL (1.80-7.70); NEUTROPHILS PERCENT AUTO 40.9 % (41.0-71.0); PLATELET COUNT,PLT 295 K/uL (150-400); RED BLOOD CELL COUNT 4.78 M/uL (4.52-5.90); WHITE BLOOD CELL COUNT,WBC 7.06 K/uL (3.9-11.3)
[2023-10-21] MEDS ORDERED: Morphine 4 MG/ML Syringe IVPUSH PRN (01:31)
[2023-10-21 01:47] LABS: INR 0.99 (0.86-1.11)
[2023-10-21 01:56] LABS: ALANINE AMINOTRANSFERASE,ALT 27 IU/L (14-63); ALBUMIN 3.8 g/dL (3.4-5.0); ALKALINE PHOSPHATASE 93 U/L (46-116); ASPARTATE AMNIOTRANSFERASE,AST 18 IU/L (15-37); BILIRUBIN TOTAL 0.3 mg/dL (0.2-1.0); BLOOD UREA NITROGEN,BUN 17 mg/dL (7.0-18.0); CALCIUM 9.5 mg/dL (8.5-10.1); CARBON DIOXIDE,CO2 31.8 mmol/L (21.0-32.0); CHLORIDE,CL 99 mmol/L (98-107); CREATININE 1.3 mg/dL (0.8-1.3); EST CRCL DRUG DOSING (CG) 91.34 mL/min; GLUCOSE RANDOM 97 mg/dL (74-106); LIPASE 31 U/L (16-77); POTASSIUM,K 3.6 mmol/L (3.5-5.1); PROTEIN TOTAL,TP 7.6 g/dL (6.4-8.2); SODIUM,NA 138 mmol/L (136-148)
[2023-10-21 02:01] LABS: ESTIMATED GFR 74 mL/min (>60)
[2023-10-21 02:08] LABS: ETHANOL BLOOD MEDICAL <3 mg/dL
[2023-10-21] MEDS: Iopamidol 755 MG/ML 500 ML Multipack Bottle IVPUSH ONE (02:17)
[2023-10-21] MEDS: Alum Hydro/Mag Hydro/Simeth XS 15 ML, Lidocaine 2% 5 ML PO ONE (03:35)
[2023-10-21 03:37] VITALS: BP 123/88; PULSE 75
== END 2023-10-21 03:43 | disposition home or self-care (01) ==
LOC: MW.ED 01:02
DX: K92.0 Hematemesis (principal); K20.90 Esophagitis, unspecified without bleeding; F10.90 Alcohol use, unspecified, uncomplicated; Z79.899 Other long term (current) drug therapy; Z88.6 Allergy status to analgesic agent; Z91.048 Other nonmedicinal substance allergy status
CPT/HCPCS: 36415; 74177; 80053; 80307; 83690; 85025; 85610; 96361; 96374; 96375; 99285; A9270; J2405; J2470; J3490; J7030; Q9967

== ENCOUNTER 2023-12-06 17:59 | Emergency (ER) | payer SELFPAY ==
[2023-12-06 18:32] VITALS: BP 131/74; PULSE 108
== END 2023-12-06 18:38 | disposition left against medical advice (07) ==
LOC: MW.ED 17:59
DX: Z53.21 Procedure and treatment not carried out due to patient leaving prior to being seen by health care provider (principal)
CPT/HCPCS: 93005

== ENCOUNTER 2023-12-16 19:46 | Emergency (ER) | payer SELFPAY ==
[2023-12-16 19:51] VITALS: BP 128/75; PULSE 102
[2023-12-16] MEDS: Aspirin 81 MG Tab.Chew PO ONE (20:18)
== END 2023-12-16 20:34 | disposition left against medical advice (07) ==
LOC: MW.ED 19:46
DX: R07.89 Other chest pain (principal); Z86.16 Personal history of COVID-19; Z79.899 Other long term (current) drug therapy; Z91.048 Other nonmedicinal substance allergy status; Z88.5 Allergy status to narcotic agent; Z75.8 Other problems related to medical facilities and other health care
CPT/HCPCS: 93005; 99284; A9270; 93010; 99285

== ENCOUNTER 2024-03-04 10:49 | Emergency (ER) | payer SELFPAY ==
[2024-03-04 11:12] LABS: BASOPHILS ABSOLUTE AUTO 0.07 K/uL (0.00-0.20); BASOPHILS PERCENT AUTO 1.1 % (0.0-1.0); EOSINOPHILS ABSOLUTE AUTO 0.77 K/uL (0.00-0.45); EOSINOPHILS PERCENT AUTO 11.8 % (0.0-6.0); HEMATOCRIT 45.4 % (42.0-52.0); HEMOGLOBIN 16.2 g/dL (14.0-18.0); IMMATURE GRAN ABSOLUTE AUTO 0.01 K/uL (0.00-0.05); IMMATURE GRAN PERCENT AUTO 0.2 % (0.0-0.4); LYMPHOCYTES ABSOLUTE AUTO 1.91 K/uL (1.00-4.80); LYMPHOCYTES PERCENT AUTO 29.2 % (24.0-44.0); MEAN CORPUSCULAR HEMOGLOBIN 31.9 pg (28.0-32.0); MEAN CORPUSCULAR HGB CONC 35.7 g/dL (32.0-36.0); MEAN CORPUSCULAR VOLUME 89.4 fL (83.0-99.0); MEAN PLATELET VOLUME 9.7 fL (9.4-12.4); MONOCYTES ABSOLUTE AUTO 0.52 K/uL (0.00-0.80); NEUTROPHILS ABSOLUTE AUTO 3.25 K/uL (1.80-7.70); NEUTROPHILS PERCENT AUTO 49.7 % (41.0-71.0); PLATELET COUNT,PLT 316 K/uL (150-400); RED BLOOD CELL COUNT 5.08 M/uL (4.52-5.90); WHITE BLOOD CELL COUNT,WBC 6.53 K/uL (3.9-11.3)
[2024-03-04 11:36] LABS: A/G RATIO 0.9 (0.9-1.6); ALANINE AMINOTRANSFERASE,ALT 22 IU/L (14-63); ALBUMIN 4.1 g/dL (3.4-5.0); ALKALINE PHOSPHATASE 89 U/L (46-116); ASPARTATE AMNIOTRANSFERASE,AST 16 IU/L (15-37); BILIRUBIN TOTAL 0.7 mg/dL (0.2-1.0); BLOOD UREA NITROGEN,BUN 14 mg/dL (7.0-18.0); CALCIUM 9.5 mg/dL (8.5-10.1); CARBON DIOXIDE,CO2 27.2 mmol/L (21.0-32.0); CHLORIDE,CL 101 mmol/L (98-107); CREATININE 1.2 mg/dL (0.8-1.3); GLUCOSE RANDOM 98 mg/dL (74-106); POTASSIUM,K 3.6 mmol/L (3.5-5.1); PROTEIN TOTAL,TP 8.5 g/dL (6.4-8.2); SODIUM,NA 138 mmol/L (136-148)
[2024-03-04 11:40] LABS: ESTIMATED GFR 81 mL/min (>60)
[2024-03-04] MEDS: Ketorolac 30 MG/ML SDV IM STA (11:44)
[2024-03-04 13:29] VITALS: BP 145/88; PULSE 77
== END 2024-03-04 13:29 | disposition home or self-care (01) ==
LOC: MW.ED 10:49
DX: R07.9 Chest pain, unspecified (principal); J45.909 Unspecified asthma, uncomplicated; Z86.16 Personal history of COVID-19; Z88.6 Allergy status to analgesic agent; Z91.048 Other nonmedicinal substance allergy status; Z79.899 Other long term (current) drug therapy; Z75.8 Other problems related to medical facilities and other health care
CPT/HCPCS: 36415; 71046; 80053; 83690; 84484; 85025; 93005; 96372; 99285; J1885

== ENCOUNTER 2024-07-24 15:54 | Emergency (ER) | payer SELFPAY ==
[2024-07-24] MEDS: Sodium Chloride 0.9% 1,000 ML IV ONE (16:33)
[2024-07-24] MEDS: Ondansetron 4 MG/2 ML SDV IVPUSH ONE (16:34)
[2024-07-24] MEDS: Metoclopramide 10 MG/2 ML SDV IVPUSH ONE (16:34)
[2024-07-24] MEDS: Ketorolac 30 MG/ML SDV IVPUSH ONE (16:34)
[2024-07-24] MEDS: diphenhydrAMINE 50 MG/ML SDV IVPUSH ONE (16:35)
[2024-07-24 17:19] VITALS: BP 122/73; PULSE 77
== END 2024-07-24 17:22 | disposition home or self-care (01) ==
LOC: MW.ED 15:54
DX: G43.909 Migraine, unspecified, not intractable, without status migrainosus (principal); J32.9 Chronic sinusitis, unspecified; Z75.3 Unavailability and inaccessibility of health-care facilities; J45.909 Unspecified asthma, uncomplicated; Z86.16 Personal history of COVID-19; F17.200 Nicotine dependence, unspecified, uncomplicated; Z79.899 Other long term (current) drug therapy; Z91.048 Other nonmedicinal substance allergy status; Z88.8 Allergy status to other drugs, medicaments and biological substances
CPT/HCPCS: 70450; 96361; 96374; 96375; 99284; J1200; J1885; J2405; J2765; J7030

== ENCOUNTER 2024-11-16 20:02 | Emergency (ER) | payer BC ==
[2024-11-16 20:42] VITALS: BP 112/70; PULSE 83
[2024-11-16 20:47] LABS: APPEARANCE,URINE CLEAR; GLUCOSE,URINE NEGATIVE (NEGATIVE); OCCULT BLOOD,URINE NEGATIVE (NEGATIVE)
== END 2024-11-16 21:05 | disposition home or self-care (01) ==
LOC: MW.ED 20:02
DX: N41.0 Acute prostatitis (principal); Z79.899 Other long term (current) drug therapy; Z88.5 Allergy status to narcotic agent; Z88.6 Allergy status to analgesic agent; Z88.8 Allergy status to other drugs, medicaments and biological substances; Z91.048 Other nonmedicinal substance allergy status
CPT/HCPCS: 81003; 87086; 99283; A9270

== ENCOUNTER 2024-11-19 05:00 | Emergency (ER) | payer BC ==
[2024-11-19] MEDS: Sodium Chloride 0.9% 2.5 ML Syringe FLUSH PRN (05:28)
[2024-11-19] MEDS: Ondansetron 4 MG/2 ML SDV IVPUSH ONE (05:28)
[2024-11-19] MEDS: Sodium Chloride 0.9% 10 ML Syringe FLUSH PRN (05:28)
[2024-11-19 05:44] LABS: BASOPHILS ABSOLUTE AUTO 0.01 K/uL (0.00-0.20); BASOPHILS PERCENT AUTO 0.1 % (0.0-1.0); EOSINOPHILS ABSOLUTE AUTO 0.06 K/uL (0.00-0.45); EOSINOPHILS PERCENT AUTO 0.7 % (0.0-6.0); IMMATURE GRAN ABSOLUTE AUTO 0.02 K/uL (0.00-0.05); IMMATURE GRAN PERCENT AUTO 0.2 % (0.0-0.4); LYMPHOCYTES ABSOLUTE AUTO 1.40 K/uL (1.00-4.80); LYMPHOCYTES PERCENT AUTO 16.0 % (24.0-44.0); MEAN PLATELET VOLUME 10.4 fL (9.4-12.4); MONOCYTES ABSOLUTE AUTO 0.84 K/uL (0.00-0.80); MONOCYTES PERCENT AUTO 9.6 % (0.0-8.0); NEUTROPHILS ABSOLUTE AUTO 6.41 K/uL (1.80-7.70); NEUTROPHILS PERCENT AUTO 73.4 % (41.0-71.0); NRBC ABSOLUTE 0.00 K/uL (0.00-0.02); NRBC PERCENT 0.0 /100WBC (0.0-0.2); PLATELET COUNT,PLT 297 K/uL (150-400); RED BLOOD CELL COUNT 4.77 M/uL (4.52-5.90); WHITE BLOOD CELL COUNT,WBC 8.74 K/uL (3.9-11.3)
[2024-11-19 05:46] LABS: APPEARANCE,URINE CLEAR; GLUCOSE,URINE NEGATIVE (NEGATIVE); OCCULT BLOOD,URINE NEGATIVE (NEGATIVE)
[2024-11-19] MEDS: Iopamidol 755 MG/ML 500 ML Multipack Bottle IVPUSH STA (06:05)
[2024-11-19 06:07] LABS: ALANINE AMINOTRANSFERASE,ALT 16.0 IU/L (14-63); ASPARTATE AMNIOTRANSFERASE,AST 16.0 IU/L (15-37); BILIRUBIN TOTAL 0.3 mg/dL (0.2-1.0); BLOOD UREA NITROGEN,BUN 22.0 mg/dL (7.0-18.0); CARBON DIOXIDE,CO2 28.0 mmol/L (21.0-32.0); CHLORIDE,CL 100.0 mmol/L (98-107); CREATININE 1.3 mg/dL (0.8-1.3); EST CRCL DRUG DOSING (CG) 90.49 mL/min; GLUCOSE RANDOM 93.0 mg/dL (74-106); POTASSIUM,K 3.9 mmol/L (3.5-5.1); PROTEIN TOTAL,TP 8.4 g/dL (6.4-8.2); SODIUM,NA 138.0 mmol/L (136-148)
[2024-11-19 06:19] LABS: A/G RATIO 1.1 (0.9-1.6); ESTIMATED GFR 74.0 mL/min (>60)
[2024-11-19] MEDS: Acetaminophen/HYDROcodone 325-5 MG Tab PO ONE (06:56)
[2024-11-19 07:15] LABS: C. TRACHOMATIS BY PCR NOT DETECTED; N. GONORRHOEAE BY PCR NOT DETECTED
[2024-11-19 07:17] VITALS: BP 120/69; PULSE 78
== END 2024-11-19 07:16 | disposition home or self-care (01) ==
LOC: MW.ED 05:00
DX: A60.00 Herpesviral infection of urogenital system, unspecified (principal); R19.15 Other abnormal bowel sounds; N48.89 Other specified disorders of penis; K62.89 Other specified diseases of anus and rectum
CPT/HCPCS: 36415; 74177; 74177-26; 80053; 81003; 85025; 85652; 86140; 87491; 87591; 96361; 96374; 96375; 99284; 99284-25; A9270-GY; J2270; J2405; J7030; Q9967